=== PATIENT | male | born 1990 | race African-American/Black ===

== ENCOUNTER 2018-04-15 17:14 | Emergency (ER) | payer MEDICAID, SELFPAY ==
[2018-04-15 17:15] VITALS: BP 136/77; PULSE 106; RESP 18; TEMP 36.1; O2SAT 99; BMI 25.7
--- NOTE | 2018-04-15 17:18 | RAD_ITS ---
STUDY: X-RAY - PELVIS AND RIGHT HIP REASON FOR EXAM: Male, 27 years old. Hip and low back pain TECHNIQUE: Radiological exam, hip, unilateral, with pelvis when performed; 2 or 3 views. 3 views obtained. COMPARISON: None. FINDINGS: There is a non-specific bowel gas pattern. Normal visualized soft tissue structures. Normal bilateral iliac wings, sacroiliac joints and visualized sacrum. Normal bilateral superior and inferior pubic rami. Normal pubic symphysis. Normal bilateral ischial tuberosities. Normal visualized femoral head. Normal acetabulum. Normal hip joint. RAD/HIP, UNI W/ Pelvis 2-3 Views IMPRESSION: Normal x-ray examination of the pelvis and hip. Electronically Signed: Khang Hilliard MD at 17:40 EST , Service support ,
--- NOTE | 2018-04-15 20:07 | ED.DCSUM_ITS ---
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 He describes the pain as an ache worse with movement in his right hip region. No abdominal pain. Fever chills no urinary symptoms. Physical Examination: Patient appears well sitting in his chair with no acute distress. He has more pain as he starts to stand up. His pain is in the greater trochanteric region as well as proximal IT band region. He has no pain with logrolling of the hip. He has no SI joint pain. He has full range of motion of his right knee without any laxity or pain. He does have some pain over his quadricep muscles. Test Results: X-ray of the hip and pelvis ordered per protocol prior to me seeing the patient is negative. Emergency Department Course and Treatment: Patient was reassured I will treat him with anti-inflammatories reassurance and education. Discharge stable condition Impression: Right hip pain IT band tendinitis This note was generated with [employer] dictation software. It may contain incorrect words, spelling, and punctuation that were not noted in review of the chart prior to signing ED Disposition - Plan for ED Patient: Disposition: Home or Assisted Living Chief Complaint: Lower Extremity Injury Instructions: ED [facility] Prescriptions: Naproxen [Naprosyn] 500 mg PO BID PRN #20 tab Tizanidine HCl 4 mg PO Q8 PRN #20 tab PRN Reason: Pain Referrals: Care Physician,No Primary [Primary Care Provider] - 3-5 Days
[2018-04-15] MEDS: Triamcinolone Acetonide 40 MG/ML Vial IM (20:18)
[2018-04-15] MEDS: HYDROcodone Bitartrate/Apap 5/325 Tablet PO (20:21)
== END 2018-04-15 20:39 | disposition home or self-care (01) ==
PROVIDERS: Emergency Provider Emergency Medicine
DX: M25.551 Pain in right hip (principal); M76.30 Iliotibial band syndrome, unspecified leg; Z72.0 Tobacco use
CPT/HCPCS: 73502; 96372; 99283

== ENCOUNTER 2018-10-28 16:05 | Inpatient (IN) | payer SELFPAY ==
[2018-10-28] VITALS (7 sets, daily range): BP systolic 118–137; BP diastolic 58–78; PULSE 72–131; RESP 16–24; TEMP 36.5–38.4; O2SAT 95–99; BMI 24.3; BMI 28.8
--- NOTE | 2018-10-28 16:21 | ED.VISSUMM ---
- ER Visit Summary Date of Service: 10/28/18 Chief Complaint: Shortness of breath, cough History of Present Illness: The patient is a 28 M presenting with shortness of breath, cough. He states this started 4 days ago. He has had a harsh cough. He states occasionally it is productive of yellow-green sputum. Occasionally sputum is blood-streaked. He has had a fever. He has not taken any medication for the fever. He has a history of asthma and has been using his inhaler. Denies other complaints. Physical Examination: Vitals are stable. Temperature 100.2. Alert no acute distress. HEENT exam pharyngeal erythema with no exudate uvula midline Neck is supple. Lungs are wheezing bilaterally. Heart is regular and tachycardic. Abdomen is soft nontender nondistended. Extremities are unremarkable. Skin is warm and dry. No focal neurologic deficit. Remainder of exam is unremarkable. Emergency Department Course and Treatment: Patient was given Tylenol, albuterol, Atrovent aerosols. Initially patient's temperature decreased to 98. On reevaluation it was 101. He continues to have wheezing following breathing treatments was given an additional albuterol. CBC normal except platelet 125. On review of his old records he has had low platelets in the past. Chemistries unremarkable. Chest x-ray shows no acute process. CTA chest shows suboptimal technique, making it impossible to exclude pulmonary emboli. Bilateral mild to moderate lower lobe infiltrates. He continues to be tachycardic and has expiratory wheezing on exam. Blood cultures were sent. He was given Levaquin IV. Discussed with the hospitalist for admission Disposition: Admission Impression: Community acquired pneumonia, asthma exacerbation This note was generated with [employer] dictation software. It may contain incorrect words, spelling, and punctuation that were not noted in review of the chart prior to signing ED Disposition - Plan for ED Patient: Instructions: ED Upper Resp Infec No Abx Tx Referrals: Jose Marrero DO [STAFF PHYSICIAN] - Oliverio Hall MD [STAFF PHYSICIAN] -
[2018-10-28] MEDS: Ipratropium/Albuterol Sulfate 3 ML AMPUL.NEB INHALATION (16:27)
[2018-10-28] MEDS: Albuterol 2.5 MG/3 ML VIAL.NEB. INHALATION ×4 (16:35→17:52)
[2018-10-28 16:53] LABS: Absolute Lymphocyte Count 1.07 X10^3/ul (0.83-4.51); Absolute Neutrophil Count 4.7 X10^3/uL (2.0-7.7); Basophil# 0.03 X10^3/uL; Basophil% 0.5 % (0-1); Eosinophil# 0.16 X10^3/uL; Eosinophils% 2.5 % (0-5); Hemoglobin 17.6 g/dl (13.0-16.5); Lymphocyte # 1.07 X10^3/ul (4.0); Lymphocyte % 16.6 % (19-41); Mean Corp Hgb Conc 32.6 g/gl (32-36); Mean Corpuscular Hgb 26.6 pg (27.0-32.0); Mean Corpuscular Volume 81.6 fL (80-94); Mean Platelet Vol. 10.7 fl (6.2-12.0); Monocyte# 0.44 X10^3/uL; Monocyte% 6.8 % (0-10); Neutrophil # 4.73 X10^3/uL (2.7-7.7); Neutrophil % 73.4 % (47-70); POSITIVE COUNT NO; POSITIVE DIFFERENTIAL NO; POSITIVE MORPHOLOGY NO; Platelet Count 125 K/mm3 (150-450); RBC Distribution Width CV 14.2 % (11.6-14.6); Red Blood Count 6.62 M/mm3 (4.6-6.2); White Blood Count 6.4 K/mm3 (4.4-11.0)
[2018-10-28] MEDS: Acetaminophen 500 MG Tablet 1000 MG PO (17:00)
--- NOTE | 2018-10-28 17:00 | RAD_ITS ---
STUDY: X-RAY CHEST REASON FOR EXAM: Male, 28 years old. Fever with cough TECHNIQUE: Frontal and lateral views of the chest. COMPARISON: None. FINDINGS: The lungs are clear and expanded. There is no demonstrated pleural abnormality. Normal size heart. Normal mediastinum and bibiana. Normal visualized pulmonary arteries. Normal visualized aortic arch and descending thoracic aorta. Normal visualized thoracic spine. Normal visualized ribs, clavicles, and shoulders. There is no demonstrated abnormality of the visualized soft tissue structures of the upper abdomen. RAD/Chest PA and Lateral IMPRESSION: Normal x-ray examination of the chest. Electronically Signed: Jimenez Drew MD at 17:14 EDT , Service support ,
[2018-10-28 17:05] LABS: Anion Gap 4 (5-15); BUN 9 mg/dL (7-18); BUN/Creat Ratio 8.2 RATIO (10-20); Calcium,Total 8.9 mg/dL (8.5-10.1); Chloride 105 mmol/L (98-107); EST Glomerular Filtration Rate 84 mL/min (>60); Est Glom Filt Rate - Afr Amer 101 mL/min (>60); Estimated Creatinine Clearance 114.17 ml/min; Glucose 85 mg/dL (74-106); Potassium 3.9 mmol/L (3.5-5.1); Sodium Level 139 mmol/L (136-145)
[2018-10-28] MEDS: MethylPREDNISolone 125 MG/2 ML Vial IV (18:05)
--- NOTE | 2018-10-28 18:54 | ED.DEP ---
ED Disposition - Plan for ED Patient: Instructions: ED Upper Resp Infec No Abx Tx Prescriptions: Benzonatate [Tessalon Perle] 200 mg PO TID PRN PRN #20 capsule PRN Reason: Cough Prednisone [Deltasone] 40 mg PO DAILY #10 tablet Referrals: Oliverio Hall MD [STAFF PHYSICIAN] - Jose Marrero DO [STAFF PHYSICIAN] -
[2018-10-28] MEDS: Ibuprofen 600 MG Tablet PO (19:23)
[2018-10-28] MEDS: 0.9% Normal Saline 1,000 ML 999 ML IV (19:28)
--- NOTE | 2018-10-28 19:53 | CT_ITS ---
STUDY: CTA CHEST REASON FOR EXAM: Male, 28 years old. Sob, fever AND HEMOPTYSIS RADIATION DOSAGE (If Supplied By Facility): CTDIvol = ( 10.25 ) mGy, DLP = ( 478.38 ) mGycm TECHNIQUE: The examination was performed with the intravenous administration of 100ML IV Isovue 370. Post-processing of the angiographic images was performed, with multiplanar reformation and 3D reconstruction. Individualized dose optimization techniques were used for this CT. COMPARISON: Chest x-ray of the same day.. FINDINGS: There is limited enhancement of the main pulmonary artery and right and left pulmonary arteries. There is limited enhancement of the bilateral peripheral pulmonary arteries. Suboptimal timing and contrast bolus. Most of the contrast remains in the left subclavian vein and SVC. There is inadequate opacification of the pulmonary arteries. Although no pulmonary emboli are seen in the pulmonary trunk or main pulmonary arteries, lobar, segmental or subsegmental pulmonary emboli cannot be excluded. Normal thoracic aorta and visualized great vessels. There is no demonstrated aortic dissection. Normal heart and pericardium. Normal mediastinum. Normal hilar regions. Normal visualized trachea and bronchi. The lungs are well expanded. Mild inflammatory infiltrates are suggested in the basal segments of both lower lobes left worse than right. No effusions. Normal chest wall structures. Normal osseous structures. Normal visualized upper abdomen. CT/CTA Chest W/WO Contrast IMPRESSION: Suboptimal technique, making it possible to exclude pulmonary emboli. Bilateral mild to moderate lower lobe infiltrates. Electronically Signed: Jimenez Drew MD at 21:30 EDT , Service support ,
--- NOTE | 2018-10-28 22:07 | EKG12_ITS ---
Test Reason : SOB Blood Pressure : / mmHG Vent. Rate : 092 BPM Atrial Rate : 092 BPM P-R Int : 134 ms QRS Dur : 090 ms QT Int : 350 ms P-R-T Axes : 066 -05 018 degrees QTc Int : 432 ms Normal sinus rhythm Normal ECG Confirmed by HYACINTH MARTINEZ ([id number]), scientific editor MENG GASTON ([id number]) on 11/06/2018 9:30:07 AM Referred By: ROE Confirmed By:HYACINTH MARTINEZ
--- NOTE | 2018-10-28 22:29 | ED.DEP ---
ED Disposition - Plan for ED Patient: Instructions: ED Upper Resp Infec No Abx Tx Referrals: Jose Marrero DO [STAFF PHYSICIAN] - Oliverio Hall MD [STAFF PHYSICIAN] -
--- NOTE | 2018-10-28 22:38 | PCM.HP.STD ---
Problem List (1) Asthma exacerbation Status: Acute (2) Community-acquired pneumonia Status: Acute History of Present Illness Date of Admission: 10/28/18 Chief Complaint: Fever, shortness of breath and cough for 4 days The patient is a 28 year old M with history of asthma since childhood on inhalers came to ED with fever with chills, productive cough with yellow-green sputum and one time bloody streaked hemoptysis, shortness of breath and wheezing for 4 days. Patient said at home his fever was 100.2 Fahrenheit in ER 101.1 Fahrenheit. Patient is tachycardic, heart rate 131 and tachypnea but no hypoxia. [] Past Medical History Allergies No Known Allergies Allergy (Verified 10/28/18 16:08) Home Medications: Ambulatory Orders Medication Instructions Recorded Naproxen [Naprosyn] 500 mg PO BID PRN #20 tab 04/15/18 Tizanidine HCl 4 mg PO Q8 PRN #20 tab 04/15/18 Smoking Status: Former smoker - *Family History Paternal History Items: - - No pertinent history of lung cancer Review of Systems Constitutional: Reports: Chills, Fever, Malaise, Weakness HEENT: Reports: Hard of Hearing. Denies: Head Aches, Sinus Congestion, Sinus Drainage Cardiovascular: Reports: Chest Pain. Denies: Palpitations Respiratory: Reports: Cough, Hemoptysis, Pleuritic Pain - Bilateral pleuritic chest pain on coughing, Shortness of breath upon exertion, Sputum production. Denies: Shortness of breath at rest Gastrointestinal: Denies: Abdominal Pain, Nausea, Vomiting Genitourinary: Denies: Dysuria Musculoskeletal: Denies: Joint Pain, Joint Tenderness Skin: Denies: Rash, Wounds Neurological: Denies: Numbness, Tingling, Focal weakness Psychiatric: Denies: Anxiety, Depression, Homicidal Ideations, Suicidal Ideations Hematologic/ Lymphatic: Denies: Easy Bruising, Easy Bleeding VTE Information - Inpt Only VTE Present on Admission: No VTE Mechan Device Prophylaxis: None VTE Pharm Prophylaxis ordered?: No Reason prophylaxis not ordered:: Procedure Not Indicated - Low risk. Early ambulation encouraged Patient Problems: Active and Suspected Problems Asthma exacerbation (Acute) Community-acquired pneumonia (Acute) - Physical Exam General: Alert, Oriented x3, Cooperative HEENT: Atraumatic, PERRLA, EOMI, Normocephalic Neck: Supple, No JVD, Negative Carotid Bruits Lungs: Diminished - Air entry diminished in all lung bradford., Short of Breath, Tachypneic, Wheezes Cardiovascular: Regular rate, Regular Rhythm, Normal S1, Normal S2, No murmurs Abdomen: Bowel Sounds Present, Soft, Non Tender, Non-Distended Extremities: No edema, Capillary Refill Less than 3 Seconds Skin: No rashes, No breakdown Musculoskeletal: No Tenderness to Palpation of Joints or Extremities Lymphatic: No Cervical, Supraclavicular, or Inguinal Adenopathy Neurological: Cranial nerves II-XII grossly intact, Deep Tendon Reflexes 2+/4 and Symmetrical, Neuro grossly intact, Motor Exam 5/5 strength throughout Psych/Mental Status: Normal Affect, Appropriate Vital Signs Temp Pulse Resp BP Pulse Ox 101.1 F H 128 H 16 119/62 97 10/28/18 19:00 10/28/18 19:00 10/28/18 19:00 10/28/18 19:00 10/28/18 19:00 Oxygen Delivery Method Room Air Weight: 190 lb Body Mass Index (BMI) 24.3 Microbiology Past 72 Hours 10/28/18 19:45 Group A Streptococcus Rapid Screen - Preliminary Mucosa - Throat Laboratory Tests Past 24 Hrs 10/28/18 10/28/18 16:40 16:40 WBC 6.4 RBC 6.62 H Hgb 17.6 H Hct 54.0 MCV 81.6 MCH 26.6 L MCHC 32.6 RDW 14.2 RDW Differential 43.0 Plt Count 125 L MPV 10.7 Immature Gran % (Auto) 0.200 Neut % (Auto) 73.4 H Lymph % (Auto) 16.6 L Granite % (Auto) 6.8 Eos % (Auto) 2.5 Baso % (Auto) 0.5 Absolute Neuts (auto) 4.7 Absolute Lymphs (auto) 1.07 Total Counted Not Reportable Sodium 139 Potassium 3.9 Chloride 105 Carbon Dioxide 30.0 Anion Gap 4 L BUN 9 Creatinine 1.10 Estim Creat Clear Calc 114.17 Est GFR (MDRD) Af Amer 101 Est GFR (MDRD) Non-Af 84 BUN/Creatinine Ratio 8.2 L Glucose 85 Calcium 8.9 Assessment/Plan All Active Problems Asthma exacerbation (Acute) Community-acquired pneumonia (Acute) The patient is a 28 year old M with history of asthma since childhood on inhalers came to ED with fever with chills, productive cough with yellow-green sputum and one time bloody streaked hemoptysis, shortness of breath and wheezing for 4 days. Patient said at home his fever was 100.2 Fahrenheit in ER 101.1 Fahrenheit. Patient is tachycardic, heart rate 131 and tachypnea but no hypoxia. Patient also complained of URI symptoms including sore throat and postnasal drip. In ER, chest x-ray was done which was normal but further CTPA was done for concern of PE which was suboptimal study but no major vessel PE. Bilateral [id number] lower lobe infiltrates. 1. SIRS with Bilateral basal, left more than right community-acquired pneumonia: Patient is being admitted on MedSurg floor. Lactic acid ordered. Started on IV Rocephin and Zithromax after patient got Levaquin 750 mg in ER. Pneumonia work-up ordered including blood cultures x2, sputum culture urinary antigens for Legionella and Streptococcus and respiratory panel. Strep throat is negative. 2. Asthma extubation mostly secondary to pneumonia: On bronchodilator every 4 hourly. IV Solu-Medrol 40 mg q. 6 hourly. Incentive spirometry and chest physiotherapy. 3. Hemoptysis most probably secondary to acute bronchitis: It was very mild with a streak of blood. 4. DVT prophylaxis: Low risk. Early ambulation encouraged Clinical Impression(s) from Imaging Studies Chest X-Ray 10/28/18 17:00 IMPRESSION: Normal x-ray examination of the chest. Chest CTA 10/28/18 19:53 IMPRESSION: Suboptimal technique, making it possible to exclude pulmonary emboli. Bilateral mild to moderate lower lobe infiltrates. Code Visit Inpatient E&M: 63570 Init Hosp L3
[2018-10-29] VITALS (10 sets, daily range): BP systolic 127–141; BP diastolic 71–79; PULSE 75–125; RESP 16–18; TEMP 36.5–36.9; O2SAT 96–99
[2018-10-29] MEDS: Ceftriaxone 1 GM/50 ML BAG IV ×2 (00:32→22:26)
[2018-10-29] MEDS: 0.9% Normal Saline 1,000 ML 100 ML IV ×3 (00:32→16:46)
[2018-10-29] MEDS: 0.9% NaCl Peripheral Flush Adult/Peds IV (00:37)
[2018-10-29] MEDS: Ipratropium/Albuterol Sulfate 3 ML AMPUL.NEB INHALATION ×5 (06:46→22:58)
--- NOTE | 2018-10-29 06:48 | NURSING ---
EVS confirmed bed bug in this pt's room. Pt moved to room 304 after he showered & new gown placed. Belongings goose tied & left in room 303. Sign on door. EVS taped room 303 off.
[2018-10-29] MEDS: guaiFENesin 1,200 MG Tablet 1200 MG PO ×2 (09:09→22:25)
--- NOTE | 2018-10-29 09:38 | PCM.PN.HOSP ---
Patient Problems: Active and Suspected Problems Asthma exacerbation (Acute) Community-acquired pneumonia (Acute) Subjective: Patient seen and examined. He was admitted with a complaint of shortness of breath and fever. He is being managed for acute asthma exacerbation and community acquired pneumonia. Patient still complains of cough and wheezing. He denies any chest pain or palpitations, fever or chills, diarrhea vomiting. Review of systems otherwise negative. Labs and vitals reviewed. Vitals/I&O's: Vital Signs Temp Pulse Resp BP Pulse Ox 97.7 F L 105 H 18 129/76 H 96 10/29/18 05:35 10/29/18 06:46 10/29/18 06:46 10/29/18 05:35 10/29/18 06:47 Oxygen Delivery Method Room Air Weight: 224 lb 3.362 oz Body Mass Index (BMI) 28.8 Intake and Output for Last 24 Hours 10/27/18 10/28/18 10/29/18 23:59 23:59 23:59 Intake Total 756 / 756 Output Total 350 / 350 Balance 406 / 406 General: Alert, Oriented x3, Cooperative, No apparent distress HEENT: Atraumatic, PERRLA, EOMI, Normocephalic Oral: Moist Mucosa Neck: Supple, No JVD, Negative Carotid Bruits Lungs: - - has diminished breath sounds in all lung bradford, with expiratory wheezes and crackles bilaterally Cardiovascular: Regular rate, Regular Rhythm, Normal S1, Normal S2, No murmurs Abdomen: Bowel Sounds Present, Soft, Non Tender, Non-Distended, No Hepato-splenomegaly Extremities: No clubbing, No cyanosis, No edema, Capillary Refill Less than 3 Seconds Skin: No rashes, No breakdown Musculoskeletal: No Tenderness to Palpation of Joints or Extremities Lymphatic: No Cervical, Supraclavicular, or Inguinal Adenopathy Neurological: Cranial nerves II-XII grossly intact, Neuro grossly intact, Motor Exam 5/5 strength throughout Psych/Mental Status: Normal Affect, Appropriate, Alert and oriented to time, place, person, mood and affect Microbiology Past 72 Hours 10/28/18 19:45 Mucosa - Throat Group A Streptococcus Rapid Screen - Preliminary Laboratory Results 10/28/18 16:40: WBC 6.4, RBC 6.62 H, Hgb 17.6 H, Hct 54.0, MCV 81.6, MCH 26.6 L, MCHC 32.6, RDW 14.2, RDW Differential 43.0, Plt Count 125 L, MPV 10.7, Immature Gran % (Auto) 0.200, Neut % (Auto) 73.4 H, Lymph % (Auto) 16.6 L, Marshall % (Auto) 6.8, Eos % (Auto) 2.5, Baso % (Auto) 0.5, Absolute Neuts (auto) 4.7, Absolute Lymphs (auto) 1.07, Total Counted Not Reportable 10/28/18 16:40: Sodium 139, Potassium 3.9, Chloride 105, Carbon Dioxide 30.0, Anion Gap 4 L, BUN 9, Creatinine 1.10, Estim Creat Clear Calc 114.17, Est GFR (MDRD) Af Amer 101, Est GFR (MDRD) Non-Af 84, BUN/Creatinine Ratio 8.2 L, Glucose 85, Calcium 8.9 Diagnostic Data Chest X-Ray 10/28/18 17:00 IMPRESSION: Normal x-ray examination of the chest. Electronically Signed: Jimenez Drew MD at 17:14 EDT , Service support , Chest CTA 10/28/18 19:53 IMPRESSION: Suboptimal technique, making it possible to exclude pulmonary emboli. Bilateral mild to moderate lower lobe infiltrates. Electronically Signed: Jimenez Drew MD at 21:30 EDT , Service support , ADDENDUM: 10/28/18 2239 Current Medications Acetaminophen (Tylenol) 650 mg PO Q4H PRN PRN PRN Reason: FEVER Acetaminophen (Tylenol) 650 mg PO Q4H PRN PRN PRN Reason: Mild-Moderate Pain/Headache Albuterol Sulfate (Ventolin Aerosols) 2.5 mg INHALATION Q2H PRN PRN PRN Reason: SHORTNESS OF BREATH Albuterol/Ipratropium (Duoneb) 3 ml INHALATION Q4H.RT [facility] Last Admin: 10/29/18 06:46 Dose: 3 ml Docusate Sodium (Colace) 200 mg PO BID PRN PRN PRN Reason: Constipation Guaifenesin (Mucinex) 1,200 mg PO BID [facility] Last Admin: 10/29/18 09:09 Dose: 1,200 mg Sodium Chloride () 1,000 mls @ 100 mls/hr IV .Q10H [facility] Last Admin: 10/29/18 08:52 Dose: 100 mls/hr Azithromycin 500 mg/ Dextrose 255 mls @ 250 mls/hr IV Q24@2200 [facility] Stop: 10/30/18 23:02 Last Admin: 10/29/18 01:34 Dose: 250 mls/hr Ceftriaxone Sodium (Rocephin) 1 gm in 50 mls @ 100 mls/hr IV Q24@2200 [facility] Last Admin: 10/29/18 00:32 Dose: 100 mls/hr Methylprednisolone (Solu-Medrol) 40 mg IV Q6 [facility] Last Admin: 10/29/18 05:29 Dose: 40 mg Nutritional Formula (Lactose Free) (Ensure Enlive) 120 ml PO 4X/DAY [facility] Last Admin: 10/29/18 09:09 Dose: 120 ml Prochlorperazine Edisylate (Compazine Iv) 10 mg IV Q6H PRN PRN PRN Reason: Nausea/Vomiting Sodium Chloride () 5 - 15 ml IV UD PRN PRN Reason: SALINE FLUSH Last Admin: 10/29/18 00:37 Dose: 10 ml Tizanidine HCl (Zanaflex) 4 mg PO Q8H PRN PRN PRN Reason: PAIN Zolpidem Tartrate (Ambien (Generic)) 5 mg PO QHS PRN PRN PRN Reason: SLEEP Medical Necessity - Tobacco Use Smoking Status: Current every day smoker Tobacco Use: Vapor Assessment/Plan All Active Problems Asthma exacerbation (Acute) Community-acquired pneumonia (Acute) 1. Community acquired pneumonia still coughing nad wheezing on IV ceftriaxone and azithromycin CXR showed no acute cardiopulmonary process; CT chest showed bilateral lower lobe infiltrates rapid strep screen negative blood cultures and respiratory panel pending continue breathing treatments 2. Acute asthma exacerbation due to community acquired pneumonia still has expiratory wheezing and rhonchi on IV solumedrol 40mg q6hrly on breathing treatments with duonebs incentive spirometry 3. Hemoptysis due to acute asthma: resolved. DVT prophylaxis: low risk. early ambulation encouraged Code Visit Inpatient E&M: 84203 [facility] L3
--- NOTE | 2018-10-29 09:43 | PN_ITS ---
Patient Problems: Active and Suspected Problems Asthma exacerbation (Acute) Community-acquired pneumonia (Acute) Subjective: Patient seen and examined. He was admitted with a complaint of shortness of breath and fever. He is being managed for acute asthma exacerbation and community acquired pneumonia. Patient still complains of cough and wheezing. He denies any chest pain or palpitations, fever or chills, diarrhea vomiting. Review of systems otherwise negative. Labs and vitals reviewed. Vitals/I&O's: Vital Signs Temp Pulse Resp BP Pulse Ox 97.7 F L 105 H 18 129/76 H 96 10/29/18 05:35 10/29/18 06:46 10/29/18 06:46 10/29/18 05:35 10/29/18 06:47 Oxygen Delivery Method Room Air Weight: 224 lb 3.362 oz Body Mass Index (BMI) 28.8 Intake and Output for Last 24 Hours 10/27/18 10/28/18 10/29/18 23:59 23:59 23:59 Intake Total 756 / 756 Output Total 350 / 350 Balance 406 / 406 General: Alert, Oriented x3, Cooperative, No apparent distress HEENT: Atraumatic, PERRLA, EOMI, Normocephalic Oral: Moist Mucosa Neck: Supple, No JVD, Negative Carotid Bruits Lungs: - - has diminished breath sounds in all lung brad[place], with expiratory wheezes and crackles bilaterally Cardiovascular: Regular rate, Regular Rhythm, Normal S1, Normal S2, No murmurs Abdomen: Bowel Sounds Present, Soft, Non Tender, Non-Distended, No Hepato- splenomegaly Extremities: No clubbing, No cyanosis, No edema, Capillary Refill Less than 3 Seconds Skin: No rashes, No breakdown Musculoskeletal: No Tenderness to Palpation of Joints or Extremities Lymphatic: No Cervical, Supraclavicular, or Inguinal Adenopathy Neurological: Cranial nerves II-XII grossly intact, Neuro grossly intact, Motor Exam 5/5 strength throughout Psych/Mental Status: Normal Affect, Appropriate, Alert and oriented to time, place, person, mood and affect Microbiology Past 72 Hours 10/28/18 19:45 Mucosa - Throat Group A Streptococcus Rapid Screen - Preliminary Laboratory Results 10/28/18 16:40: WBC 6.4, RBC 6.62 H, Hgb 17.6 H, Hct 54.0, MCV 81.6, MCH 26.6 L, MCHC 32.6, RDW 14.2, RDW Differential 43.0, Plt Count 125 L, MPV 10.7, Immature Gran % (Auto) 0.200, Neut % (Auto) 73.4 H, Lymph % (Auto) 16.6 L, [place] % (Auto) 6.8, Eos % (Auto) 2.5, Baso % (Auto) 0.5, Absolute Neuts (auto) 4.7, Absolute Lymphs (auto) 1.07, Total Counted Not Reportable 10/28/18 16:40: Sodium 139, Potassium 3.9, Chloride 105, Carbon Dioxide 30.0, Anion Gap 4 L, BUN 9, Creatinine 1.10, Estim Creat Clear Calc 114.17, Est GFR (MDRD) Af Amer 101, Est GFR (MDRD) Non-Af 84, BUN/Creatinine Ratio 8.2 L, Glucose 85, Calcium 8.9 Diagnostic Data Chest X-Ray 10/28/18 17:00 IMPRESSION: Normal x-ray examination of the chest. Electronically Signed: Jimenez Drew MD at 17:14 EDT , Service support , Chest CTA 10/28/18 19:53 IMPRESSION: Suboptimal technique, making it possible to exclude pulmonary emboli. Bilateral mild to moderate lower lobe infiltrates. Electronically Signed: Jimenez Drew MD at 21:30 EDT , Service support , ADDENDUM: 10/28/18 2239 Current Medications Acetaminophen (Tylenol) 650 mg PO Q4H PRN PRN PRN Reason: FEVER Acetaminophen (Tylenol) 650 mg PO Q4H PRN PRN PRN Reason: Mild-Moderate Pain/Headache Albuterol Sulfate (Ventolin Aerosols) 2.5 mg INHALATION Q2H PRN PRN PRN Reason: SHORTNESS OF BREATH Albuterol/Ipratropium (Duoneb) 3 ml INHALATION Q4H.RT [place] Last Admin: 10/29/18 06:46 Dose: 3 ml Docusate Sodium (Colace) 200 mg PO BID PRN PRN PRN Reason: Constipation Guaifenesin (Mucinex) 1,200 mg PO BID [facility] Last Admin: 10/29/18 09:09 Dose: 1,200 mg Sodium Chloride () 1,000 mls @ 100 mls/hr IV .Q10H [facility] Last Admin: 10/29/18 08:52 Dose: 100 mls/hr Azithromycin 500 mg/ Dextrose 255 mls @ 250 mls/hr IV Q24@2200 [facility] Stop: 10/30/18 23:02 Last Admin: 10/29/18 01:34 Dose: 250 mls/hr Ceftriaxone Sodium (Rocephin) 1 gm in 50 mls @ 100 mls/hr IV Q24@2200 [facility] Last Admin: 10/29/18 00:32 Dose: 100 mls/hr Methylprednisolone (Solu-Medrol) 40 mg IV Q6 [facility] Last Admin: 10/29/18 05:29 Dose: 40 mg Nutritional Formula (Lactose Free) (Ensure Enlive) 120 ml PO 4X/DAY [facility] Last Admin: 10/29/18 09:09 Dose: 120 ml Prochlorperazine Edisylate (Compazine Iv) 10 mg IV Q6H PRN PRN PRN Reason: Nausea/Vomiting Sodium Chloride () 5 - 15 ml IV UD PRN PRN Reason: SALINE FLUSH Last Admin: 10/29/18 00:37 Dose: 10 ml Tizanidine HCl (Zanaflex) 4 mg PO Q8H PRN PRN PRN Reason: PAIN Zolpidem Tartrate (Ambien (Generic)) 5 mg PO QHS PRN PRN PRN Reason: SLEEP Medical Necessity - Tobacco Use Smoking Status: Current every day smoker Tobacco Use: Vapor Assessment/Plan All Active Problems Asthma exacerbation (Acute) Community-acquired pneumonia (Acute) 1. Community acquired pneumonia * still coughing nad wheezing * on IV ceftriaxone and azithromycin * CXR showed no acute cardiopulmonary process; CT chest showed bilateral lower lobe infiltrates * rapid strep screen negative * blood cultures and respiratory panel pending * continue breathing treatments * 2. Acute asthma exacerbation due to community acquired pneumonia * still has expiratory wheezing and rhonchi * on IV solumedrol 40mg q6hrly * on breathing treatments with duonebs * incentive spirometry * 3. Hemoptysis due to acute asthma: resolved. DVT prophylaxis: low risk. early ambulation encouraged Code Visit Inpatient E&M: 86458 Subs Hosp L3
--- NOTE | 2018-10-29 10:05 | CASEMGMT ---
Social Work Note Pt is listed as being self-pay. Per PFS, pt completed HCAP application. SW met with pt, introduced self and role at [facility]. Pt is alert and orientated x4. Pt states that he thought he had insurance until he was informed that his insurance was deactivated. Pt states that he works at [employer] and they do offer him insurance and that he will need to sign up for it. 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 SW provided pt with financial resources including [employer], [employer], [employer], RX assistance programs and Medicaid application. Pt denied additional needs or concerns at this time. Nicole Beatty PRODUCT CONTROLLER, DIESEL ENGINE FITTER
--- NOTE | 2018-10-29 14:18 | CASEMGMT ---
Addendum entered by Bibi Haas 10/29/18 14:29: Assessment occurred at 1120 Original Note: RN CM INTAKE COUNSELOR CM to room to meet with patient for initial transition planning/care coordination assessment. AZEEM DELCID introduced self and role at [facility]. Pt voices understanding and consents to assessment at this time. Pt resting in bed in no distress at this time. Pt is A/O at this time and answers all questions appropriately. Care providers, pharmacy, and demographics verified/updated at this time. PCP: No PCP. Given list of local PCP's. has also provided info on [facility]. Specialists: None. Preferred Pharmacy: [facility]. Pt has no insurance. Made aware [facility] check on new prescriptions can be completed prior to discharge. Pt made aware to inform staff if medication cost is not affordable and made aware he may qualify for [facility] Prescription Assist program if he chooses to utilize it. Insurance: Self Pay Prescription Benefit: None. Living Will/HPOA: [facility] does not have LW or HCPOA . Interested in more information but [facility] does not want to talk with at this time to complete paperwork. Provided information on advanced directives and given Social Service rac card with number to call if chooses in the future to utilize [facility] social work for advanced directive completion. Pt voices understanding. LNOK: AuntAisha Living Arrangements: Lives with his auntAisha. States is independent Transportation: Pt does not drive. States his friend Irlanda assists with transportation or he walks. [facility] will check and see if Irlanda can drive him home on discharge. DME: Denies using any DME and denies needs. HHC/SNF: No history of either. No needs identified. Pt wishes to return home and states has no concerns with going home at time of discharge. CM to follow for any discharge planning/needs. Pt voices no further concerns/needs at this time. Advised pt to ask for CM if any further questions/concerns/needs arise. Voices understanding. PLAN: Home. May need [facility] Prescription Assist program. Brittani PATRICIA RN, CM
[2018-10-29] MEDS: tiZANidine HCl 2 MG Tablet 4 MG PO (19:54)
[2018-10-29 20:34] LABS: Color, Urine Yellow (Yellow); Glucose, Dipstick 100 mg/dl (Normal); Ketone-Dipstick 5 mg/dl (Negative); Leukocyte Esterase-Dipstick Negative /ul (Negative); Nitrite-Dipstick Negative (Negative); Occult Blood-Urine Negative /ul (Negative); Protein-Dipstick 30 mg/dl (Negative); Specific Gravity, Urine 1.005 (1.002-1.030); Urine Bilirubin Dipstick Negative (Negative); Urine Clarity Clear (Clear); Urine Urobilinogen Normal (Normal)
--- NOTE | 2018-10-29 20:53 | NURSING ---
Lab called with + Urine...Strep pneumonia told his primary RN Kinjal.
[2018-10-29] MEDS: Acetaminophen 325 MG Tablet 650 MG PO (23:52)
[2018-10-30] VITALS (12 sets, daily range): BP systolic 122–142; BP diastolic 62–81; PULSE 98–128; RESP 16–20; TEMP 36.4–37.2; O2SAT 95–97
[2018-10-30] MEDS: Ipratropium/Albuterol Sulfate 3 ML AMPUL.NEB INHALATION ×6 (03:50→23:35)
[2018-10-30] MEDS: 0.9% Normal Saline 1,000 ML 100 ML IV ×2 (04:05→14:45)
[2018-10-30 05:52] LABS: Absolute Lymphocyte Count 0.51 X10^3/ul (0.83-4.51); Absolute Neutrophil Count 12.8 X10^3/uL (2.0-7.7); Basophil# 0.02 X10^3/uL; Basophil% 0.1 % (0-1); Hematocrit 45.7 % (40-54); Hemoglobin 15.1 g/dl (13.0-16.5); Lymphocyte # 0.51 X10^3/ul (4.0); Lymphocyte % 3.7 % (19-41); Mean Corpuscular Hgb 26.6 pg (27.0-32.0); Mean Corpuscular Volume 80.6 fL (80-94); Mean Platelet Vol. 10.5 fl (6.2-12.0); Monocyte# 0.35 X10^3/uL; Monocyte% 2.6 % (0-10); Neutrophil # 12.82 X10^3/uL (2.7-7.7); Neutrophil % 93.5 % (47-70); Platelet Count 139 K/mm3 (150-450); RBC Distribution Width CV 14.5 % (11.6-14.6); RBC Distribution Width SD 42.9 fl (35.1-43.9); Red Blood Count 5.67 M/mm3 (4.6-6.2); White Blood Count 13.7 K/mm3 (4.4-11.0)
[2018-10-30 05:55] LABS: Differential Indicated SCAN CRITERIA MET; POSITIVE COUNT NO; POSITIVE DIFFERENTIAL YES; POSITIVE MORPHOLOGY NO
[2018-10-30 06:01] LABS: Anion Gap 7 (5-15); BUN 11 mg/dL (7-18); BUN/Creat Ratio 13.2 RATIO (10-20); Chloride 109 mmol/L (98-107); Creatinine, Serum 0.83 mg/dL (0.70-1.30); EST Glomerular Filtration Rate 115 mL/min (>60); Est Glom Filt Rate - Afr Amer 139 mL/min (>60); Estimated Creatinine Clearance 151.31 ml/min; Glucose 133 mg/dL (74-106); Potassium 3.9 mmol/L (3.5-5.1); Sodium Level 140 mmol/L (136-145)
[2018-10-30] MEDS: guaiFENesin 1,200 MG Tablet 1200 MG PO ×2 (07:59→21:12)
[2018-10-30] MEDS: tiZANidine HCl 2 MG Tablet 4 MG PO ×2 (08:00→17:57)
--- NOTE | 2018-10-30 09:45 | PCM.PN.HOSP ---
Patient Problems: Active and Suspected Problems Asthma exacerbation (Acute) Community-acquired pneumonia (Acute) Subjective: Patient seen and examined. Still complains of shortness of breath. He still has a cough which is productive of clear sputum. Denies any fever chills or chest pain. Review of systems otherwise negative. Labs and vitals reviewed. Vitals/I&O's: Vital Signs Temp Pulse Resp BP Pulse Ox 98.4 F 122 H 18 128/68 H 95 10/30/18 08:00 10/30/18 08:00 10/30/18 08:00 10/30/18 08:00 10/30/18 08:00 Oxygen Delivery Method Room Air Weight: 224 lb 3.362 oz Body Mass Index (BMI) 28.8 Intake and Output for Last 24 Hours 10/28/18 10/29/18 10/30/18 23:59 23:59 23:59 Intake Total 3437 / 3437 937 / 937 Output Total 350 / 350 Balance 3087 / 3087 937 / 937 General: Alert, Oriented x3, Cooperative, No apparent distress HEENT: Atraumatic, PERRLA, EOMI, Normocephalic Oral: Moist Mucosa Neck: Supple, No JVD, Negative Carotid Bruits Lungs: - - has diminished breath sounds in all lung br[place], with expiratory wheezes and crackles bilaterally Cardiovascular: Regular rate, Regular Rhythm, Normal S1, Normal S2, No murmurs Abdomen: Bowel Sounds Present, Soft, Non Tender, Non-Distended, No Hepato-splenomegaly Extremities: No clubbing, No cyanosis, No edema, Capillary Refill Less than 3 Seconds Skin: No rashes, No breakdown Musculoskeletal: No Tenderness to Palpation of Joints or Extremities Lymphatic: No Cervical, Supraclavicular, or Inguinal Adenopathy Neurological: Cranial nerves II-XII grossly intact, Neuro grossly intact, Motor Exam 5/5 strength throughout Psych/Mental Status: Normal Affect, Appropriate, Alert and oriented to time, place, person, mood and affect Microbiology Past 72 Hours 10/28/18 19:45 Mucosa - Throat Group A Streptococcus Rapid Screen - Final 10/29/18 14:00 Urine, Clean Catch Streptococcus pneumoniae Antigen (M - Final Streptococcus pneumonia Ag 10/29/18 14:00 Urine, Clean Catch Legionella Antigen - Final 10/29/18 11:01 Sputum, Expectorated/Coughed Gram Stain - Final 10/29/18 01:00 Mucosa - Nasopharyngeal Respiratory Panel (PCR) - Final Parainfluenza 3 Laboratory Results 10/29/18 14:00: Urine Color Yellow, Urine Clarity Clear, Urine pH 7.0, Ur Specific [place] 1.005, Urine Protein 30 H, Urine Glucose (UA) 100 H, Urine Ketones 5 H, Urine Occult Blood Negative, Urine Nitrite Negative, Urine Bilirubin Negative, Urine Urobilinogen Normal, Ur Leukocyte Esterase Negative 10/30/18 05:14: WBC 13.7 H, RBC 5.67, Hgb 15.1, Hct 45.7, MCV 80.6, MCH 26.6 L, MCHC 33.0, RDW 14.5, RDW Differential 42.9, Plt Count 139 L, MPV 10.5, Immature Gran % (Auto) 0.100, Neut % (Auto) 93.5 H, Lymph % (Auto) 3.7 L, [place] % (Auto) 2.6, Eos % (Auto) 0.0, Baso % (Auto) 0.1, Absolute Neuts (auto) 12.8 H, Absolute Lymphs (auto) 0.51 L, Total Counted Not Reportable 10/30/18 05:14: Sodium 140, Potassium 3.9, Chloride 109 H, Carbon Dioxide 24.0, Anion Gap 7, BUN 11, Creatinine 0.83, Estim Creat Clear Calc 151.31, Est GFR (MDRD) Af Amer 139, Est GFR (MDRD) Non-Af 115, BUN/Creatinine Ratio 13.2, Glucose 133 H, Calcium 9.0 Current Medications Acetaminophen (Tylenol) 650 mg PO Q4H PRN PRN PRN Reason: FEVER Acetaminophen (Tylenol) 650 mg PO Q4H PRN PRN PRN Reason: Mild-Moderate Pain/Headache Last Admin: 10/29/18 23:52 Dose: 650 mg Albuterol Sulfate (Ventolin Aerosols) 2.5 mg INHALATION Q2H PRN PRN PRN Reason: SHORTNESS OF BREATH Albuterol/Ipratropium (Duoneb) 3 ml INHALATION Q4H.RT [place] Last Admin: 10/30/18 06:52 Dose: 3 ml Docusate Sodium (Colace) 200 mg PO BID PRN PRN PRN Reason: Constipation Guaifenesin (Mucinex) 1,200 mg PO BID [facility] Last Admin: 10/30/18 07:59 Dose: 1,200 mg Sodium Chloride () 1,000 mls @ 100 mls/hr IV .Q10H [facility] Last Admin: 10/30/18 04:05 Dose: 100 mls/hr Azithromycin 500 mg/ Dextrose 255 mls @ 250 mls/hr IV Q24@2200 [facility] Stop: 10/30/18 23:02 Last Admin: 10/29/18 23:37 Dose: 250 mls/hr Ceftriaxone Sodium (Rocephin) 1 gm in 50 mls @ 100 mls/hr IV Q24@2200 [facility] Last Admin: 10/29/18 22:26 Dose: 100 mls/hr Methylprednisolone (Solu-Medrol) 40 mg IV Q6 [facility] Last Admin: 10/30/18 05:38 Dose: 40 mg Prochlorperazine Edisylate (Compazine Iv) 10 mg IV Q6H PRN PRN PRN Reason: Nausea/Vomiting Sodium Chloride () 5 - 15 ml IV UD PRN PRN Reason: SALINE FLUSH Last Admin: 10/29/18 00:37 Dose: 10 ml Tizanidine HCl (Zanaflex) 4 mg PO Q8H PRN PRN PRN Reason: PAIN Last Admin: 10/30/18 08:00 Dose: 4 mg Zolpidem Tartrate (Ambien (Generic)) 5 mg PO QHS PRN PRN PRN Reason: SLEEP Medical Necessity - Tobacco Use Smoking Status: Current every day smoker Tobacco Use: Vapor Assessment/Plan All Active Problems Asthma exacerbation (Acute) Community-acquired pneumonia (Acute) 1. Community acquired pneumonia still coughing and wheezing on IV ceftriaxone and azithromycin CXR showed no acute cardiopulmonary process; CT chest showed bilateral lower lobe infiltrates rapid strep screen negative Respiratory panel positive for parainfluenza and urine was positive for strep pneumonia antigen. Legionella antigen was negative and Gram stain was also negative. Blood cultures are pending. continue breathing treatments and antibiotics 2. Acute asthma exacerbation due to community acquired pneumonia and parainfluenza infection still has expiratory wheezing and rhonchi on IV solumedrol 40mg q6hrly on breathing treatments with duonebs incentive spirometry 3. Hemoptysis due to acute asthma: resolved. DVT prophylaxis: low risk.SCDs. Code Visit Inpatient E&M: 59008 Subs Hosp L3
--- NOTE | 2018-10-30 09:49 | PN_ITS ---
Patient Problems: Active and Suspected Problems Asthma exacerbation (Acute) Community-acquired pneumonia (Acute) Subjective: Patient seen and examined. Still complains of shortness of breath. He still has a cough which is productive of clear sputum. Denies any fever chills or chest pain. Review of systems otherwise negative. Labs and vitals reviewed. Vitals/I&O's: Vital Signs Temp Pulse Resp BP Pulse Ox 98.4 F 122 H 18 128/68 H 95 10/30/18 08:00 10/30/18 08:00 10/30/18 08:00 10/30/18 08:00 10/30/18 08:00 Oxygen Delivery Method Room Air Weight: 224 lb 3.362 oz Body Mass Index (BMI) 28.8 Intake and Output for Last 24 Hours 10/28/18 10/29/18 10/30/18 23:59 23:59 23:59 Intake Total 3437 / 3437 937 / 937 Output Total 350 / 350 Balance 3087 / 3087 937 / 937 General: Alert, Oriented x3, Cooperative, No apparent distress HEENT: Atraumatic, PERRLA, EOMI, Normocephalic Oral: Moist Mucosa Neck: Supple, No JVD, Negative Carotid Bruits Lungs: - - has diminished breath sounds in all lung brad[place], with expiratory wheezes and crackles bilaterally Cardiovascular: Regular rate, Regular Rhythm, Normal S1, Normal S2, No murmurs Abdomen: Bowel Sounds Present, Soft, Non Tender, Non-Distended, No Hepato- splenomegaly Extremities: No clubbing, No cyanosis, No edema, Capillary Refill Less than 3 Seconds Skin: No rashes, No breakdown Musculoskeletal: No Tenderness to Palpation of Joints or Extremities Lymphatic: No Cervical, Supraclavicular, or Inguinal Adenopathy Neurological: Cranial nerves II-XII grossly intact, Neuro grossly intact, Motor Exam 5/5 strength throughout Psych/Mental Status: Normal Affect, Appropriate, Alert and oriented to time, place, person, mood and affect Microbiology Past 72 Hours 10/28/18 19:45 Mucosa - Throat Group A Streptococcus Rapid Screen - Final 10/29/18 14:00 Urine, Clean Catch Streptococcus pneumoniae Antigen (M - Final Streptococcus pneumonia Ag 10/29/18 14:00 Urine, Clean Catch Legionella Antigen - Final 10/29/18 11:01 Sputum, Expectorated/Coughed Gram Stain - Final 10/29/18 01:00 Mucosa - Nasopharyngeal Respiratory Panel (PCR) - Final Parainfluenza 3 Laboratory Results 10/29/18 14:00: Urine Color Yellow, Urine Clarity Clear, Urine pH 7.0, Ur Specific [place] 1.005, Urine Protein 30 H, Urine Glucose (UA) 100 H, Urine Ketones 5 H, Urine Occult Blood Negative, Urine Nitrite Negative, Urine Bilirubin Negative, Urine Urobilinogen Normal, Ur Leukocyte Esterase Negative 10/30/18 05:14: WBC 13.7 H, RBC 5.67, Hgb 15.1, Hct 45.7, MCV 80.6, MCH 26.6 L, MCHC 33.0, RDW 14.5, RDW Differential 42.9, Plt Count 139 L, MPV 10.5, Immature Gran % (Auto) 0.100, Neut % (Auto) 93.5 H, Lymph % (Auto) 3.7 L, [place] % (Auto) 2.6, Eos % (Auto) 0.0, Baso % (Auto) 0.1, Absolute Neuts (auto) 12.8 H, Absolute Lymphs (auto) 0.51 L, Total Counted Not Reportable 10/30/18 05:14: Sodium 140, Potassium 3.9, Chloride 109 H, Carbon Dioxide 24.0, Anion Gap 7, BUN 11, Creatinine 0.83, Estim Creat Clear Calc 151.31, Est GFR (MDRD) Af Amer 139, Est GFR (MDRD) Non-Af 115, BUN/Creatinine Ratio 13.2, Glucose 133 H, Calcium 9.0 Current Medications Acetaminophen (Tylenol) 650 mg PO Q4H PRN PRN PRN Reason: FEVER Acetaminophen (Tylenol) 650 mg PO Q4H PRN PRN PRN Reason: Mild-Moderate Pain/Headache Last Admin: 10/29/18 23:52 Dose: 650 mg Albuterol Sulfate (Ventolin Aerosols) 2.5 mg INHALATION Q2H PRN PRN PRN Reason: SHORTNESS OF BREATH Albuterol/Ipratropium (Duoneb) 3 ml INHALATION Q4H.RT [facility] Last Admin: 10/30/18 06:52 Dose: 3 ml Docusate Sodium (Colace) 200 mg PO BID PRN PRN PRN Reason: Constipation Guaifenesin (Mucinex) 1,200 mg PO BID [facility] Last Admin: 10/30/18 07:59 Dose: 1,200 mg Sodium Chloride () 1,000 mls @ 100 mls/hr IV .Q10H [facility] Last Admin: 10/30/18 04:05 Dose: 100 mls/hr Azithromycin 500 mg/ Dextrose 255 mls @ 250 mls/hr IV Q24@2200 [facility] Stop: 10/30/18 23:02 Last Admin: 10/29/18 23:37 Dose: 250 mls/hr Ceftriaxone Sodium (Rocephin) 1 gm in 50 mls @ 100 mls/hr IV Q24@2200 [facility] Last Admin: 10/29/18 22:26 Dose: 100 mls/hr Methylprednisolone (Solu-Medrol) 40 mg IV Q6 [facility] Last Admin: 10/30/18 05:38 Dose: 40 mg Prochlorperazine Edisylate (Compazine Iv) 10 mg IV Q6H PRN PRN PRN Reason: Nausea/Vomiting Sodium Chloride () 5 - 15 ml IV UD PRN PRN Reason: SALINE FLUSH Last Admin: 10/29/18 00:37 Dose: 10 ml Tizanidine HCl (Zanaflex) 4 mg PO Q8H PRN PRN PRN Reason: PAIN Last Admin: 10/30/18 08:00 Dose: 4 mg Zolpidem Tartrate (Ambien (Generic)) 5 mg PO QHS PRN PRN PRN Reason: SLEEP Medical Necessity - Tobacco Use Smoking Status: Current every day smoker Tobacco Use: Vapor Assessment/Plan All Active Problems Asthma exacerbation (Acute) Community-acquired pneumonia (Acute) 1. Community acquired pneumonia * still coughing and wheezing * on IV ceftriaxone and azithromycin * CXR showed no acute cardiopulmonary process; CT chest showed bilateral lower lobe infiltrates * rapid strep screen negative * Respiratory panel positive for parainfluenza and urine was positive for strep pneumonia antigen. Legionella antigen was negative and Gram stain was also negative. Blood cultures are pending. * continue breathing treatments and antibiotics * 2. Acute asthma exacerbation due to community acquired pneumonia and parainfluenza infection * still has expiratory wheezing and rhonchi * on IV solumedrol 40mg q6hrly * on breathing treatments with duonebs * incentive spirometry * 3. Hemoptysis due to acute asthma: resolved. DVT prophylaxis: low risk.SCDs. Code Visit Inpatient E&M: 92713 Subs Hosp L3
[2018-10-30] MEDS: BENZOCAINE/MENTHOL 1 LOZENGE 2 LOZENGE MUCOUS MEM (15:12)
[2018-10-30] MEDS: Ceftriaxone 1 GM/50 ML BAG IV (21:11)
[2018-10-31] MEDS: Acetaminophen 325 MG Tablet 650 MG PO (00:01)
[2018-10-31] MEDS: 0.9% Normal Saline 1,000 ML 100 ML IV (02:06)
[2018-10-31 03:42] VITALS: PULSE 110; RESP 18
[2018-10-31] MEDS: Ipratropium/Albuterol Sulfate 3 ML AMPUL.NEB INHALATION ×3 (03:42→11:06)
[2018-10-31 03:55] VITALS: BP 150/76; PULSE 92; RESP 20; TEMP 36.4; O2SAT 97
[2018-10-31 03:58] VITALS: RESP 20
[2018-10-31 07:05] VITALS: PULSE 112; RESP 18; O2SAT 96
[2018-10-31 08:06] VITALS: BP 135/95; PULSE 109; RESP 18; TEMP 36.6; O2SAT 94
[2018-10-31] MEDS: guaiFENesin 1,200 MG Tablet 1200 MG PO (08:09)
[2018-10-31] MEDS: tiZANidine HCl 2 MG Tablet 4 MG PO (08:10)
[2018-10-31] MEDS: BENZOCAINE/MENTHOL 1 LOZENGE 2 LOZENGE MUCOUS MEM (08:10)
--- NOTE | 2018-10-31 09:34 | PCM.CONS.PUL ---
Reason for Consult Date of Consultation: 10/31/18 Reason for Consultation: Asthma Exacerbation History of Present Illness: The patient is a 28-year-old male, with a history as outlined below, who initially presented to the emergency department on October 28 with complaints of shortness of breath and productive cough. The patient has a self-reported history of asthma, initially diagnosed in childhood, which apparently became quiescent as the patient became an adult. The patient reports that prior to this hospitalization, that he did not have any asthma related symptoms. Nevertheless, he does have access to an albuterol rescue inhaler in his home environment. The patient does not currently smoke combustible cigarettes, but does periodically vape. He does report continued chest tightness, wheezing and cough. On presentation to the emergency department, the patient was noted to be febrile, tachycardic and tachypneic. He was, nevertheless, able to maintain appropriate oxygen saturations on room air. Laboratory evaluation revealed no evidence of a leukocytosis. Chemistry profile was unremarkable. Plain film chest x-ray revealed no acute cardiopulmonary process. A CTA chest was then obtained, which was suboptimal for the evaluation of pulmonary emboli. Bilateral lower lobe infiltrates were noted. The patient received aerosol treatments and antibiotics. He was subsequently admitted to the medical surgical floor for ongoing management. The patient's hospital infectious work-up was positive for parainfluenza and Streptococcus pneumoniae. The patient has been maintained on ceftriaxone, bronchodilators and IV steroids. His fever has resolved and he has been able to maintain appropriate oxygen saturations on room air. Past Medical History Allergies No Known Allergies Allergy (Verified 10/28/18 16:08) Home Medications: Ambulatory Orders Medication Instructions Recorded Albuterol Inhaler [Ventolin Hfa 1 - 2 puff INHALATION Q4H PRN PRN 10/28/18 (SP)] Smoking Status: Current every day smoker Tobacco Use: Vapor - *Family History Paternal History Items: - - No pertinent history of lung cancer Review of Systems Constitutional: Reports: Fever Eyes: Denies: Blurred vision, Double vision HEENT: Denies: Head Aches, Sinus Congestion, Sinus Drainage Cardiovascular: Reports: Chest Tightness Respiratory: Reports: Cough, Shortness of Breath, Sputum production, Wheezing Gastrointestinal: Denies: Abdominal Pain, Nausea, Vomiting Genitourinary: Denies: Dysuria Musculoskeletal: Denies: Joint Pain, Joint Tenderness Skin: Denies: Rash, Wounds Neurological: Denies: Numbness, Tingling, Focal weakness Psychiatric: Denies: Anxiety, Depression, Homicidal Ideations, Suicidal Ideations Hematologic/ Lymphatic: Denies: Easy Bruising, Easy Bleeding Patient Problems: Active and Suspected Problems Asthma exacerbation (Acute) Community-acquired pneumonia (Acute) Objective: The patient's most recent lab work, culture data and imaging studies have all been personally reviewed. Urinary Streptococcus antigen was positive. Respiratory viral panel was positive for parainfluenza 3. - Physical Exam General: Alert, Oriented x3, Cooperative, No apparent distress, - - Sitting upright in bed. HEENT: Atraumatic, PERRLA, Normocephalic, - - + Vocal hoarseness Oral: No Gingival or Mucosal Lesions/ Ulcerations Neck: Supple, No Nodes, Trachea Midline Lungs: - - Scant rhonchi with diffuse bilateral expiratory wheezes. Frequent coughing. Cardiovascular: Normal S1, Normal S2, No murmurs, Tachycardic Abdomen: Bowel Sounds Present, Soft, Non Tender, Non-Distended Extremities: No clubbing, No cyanosis, No edema Skin: No breakdown Musculoskeletal: No Tenderness to Palpation of Joints or Extremities, No Muscle Wasting Lymphatic: No Cervical, Supraclavicular, or Inguinal Adenopathy Neurological: Cranial nerves II-XII grossly intact, Neuro grossly intact Psych/Mental Status: Alert and oriented to time, place, person, mood and affect Vital Signs Temp Pulse Resp BP Pulse Ox 97.9 F 109 H 18 135/95 H 94 10/31/18 08:06 10/31/18 08:06 10/31/18 08:06 10/31/18 08:06 10/31/18 08:06 Oxygen Delivery Method Room Air Weight: 224 lb 3.362 oz Body Mass Index (BMI) 28.8 Intake and Output for Last 24 Hours 10/29/18 10/30/18 10/31/18 23:59 23:59 23:59 Intake Total 3437 / 3437 4109 / 4109 877 / 877 Output Total 350 / 350 Balance 3087 / 3087 4109 / 4109 877 / 877 Microbiology Past 72 Hours 10/28/18 22:55 Blood Culture - Preliminary Blood Culture (Wb) - Anticubital Left No growth in 48 hours. 10/28/18 23:00 Blood Culture - Preliminary Blood Culture (Wb) - Anticubital Right No growth in 48 hours. 10/29/18 11:01 Gram Stain - Final Sputum, Expectorated/Coughed Respiratory Culture - Preliminary Appears to be normal respiratory maximo. Further studies to follow. 10/28/18 19:45 Group A Streptococcus Rapid Screen - Final Mucosa - Throat 10/29/18 14:00 Streptococcus pneumoniae Antigen (M - Final Urine, Clean Catch Streptococcus pneumonia Ag 10/29/18 14:00 Legionella Antigen - Final Urine, Clean Catch 10/29/18 01:00 Respiratory Panel (PCR) - Final Mucosa - Nasopharyngeal Parainfluenza 3 Labs (Last 48 Hours) 10/29/18 10/30/18 10/30/18 14:00 05:14 05:14 WBC 13.7 H RBC 5.67 Hgb 15.1 Hct 45.7 MCV 80.6 MCH 26.6 L MCHC 33.0 RDW 14.5 RDW Differential 42.9 Plt Count 139 L MPV 10.5 Immature Gran % (Auto) 0.100 Neut % (Auto) 93.5 H Lymph % (Auto) 3.7 L [place] % (Auto) 2.6 Eos % (Auto) 0.0 Baso % (Auto) 0.1 Absolute Neuts (auto) 12.8 H Absolute Lymphs (auto) 0.51 L Total Counted Not Reportable Sodium 140 Potassium 3.9 Chloride 109 H Carbon Dioxide 24.0 Anion Gap 7 BUN 11 Creatinine 0.83 Estim Creat Clear Calc 151.31 Est GFR (MDRD) Af Amer 139 Est GFR (MDRD) Non-Af 115 BUN/Creatinine Ratio 13.2 Glucose 133 H Calcium 9.0 Urine Color Yellow Urine Clarity Clear Urine pH 7.0 Ur Specific [place] 1.005 Urine Protein 30 H Urine Glucose (UA) 100 H Urine Ketones 5 H Urine Occult Blood Negative Urine Nitrite Negative Urine Bilirubin Negative Urine Urobilinogen Normal Ur Leukocyte Esterase Negative Microbiology 10/28/18 22:55 Blood Culture (Wb) - Anticubital Left Blood Culture - Preliminary No growth in 48 hours. 10/28/18 23:00 Blood Culture (Wb) - Anticubital Right Blood Culture - Preliminary No growth in 48 hours. 10/29/18 11:01 Sputum, Expectorated/Coughed Gram Stain - Final 10/29/18 11:01 Sputum, Expectorated/Coughed Respiratory Culture - Preliminary Appears to be normal respiratory maximo. Further studies to follow. 10/28/18 19:45 Mucosa - Throat Group A Streptococcus Rapid Screen - Final 10/29/18 14:00 Urine, Clean Catch Streptococcus pneumoniae Antigen (M - Final Streptococcus pneumonia Ag 10/29/18 14:00 Urine, Clean Catch Legionella Antigen - Final 10/29/18 01:00 Mucosa - Nasopharyngeal Respiratory Panel (PCR) - Final Parainfluenza 3 Clinical Impression(s) from Imaging Studies Chest X-Ray 10/28/18 17:00 IMPRESSION: Normal x-ray examination of the chest. Electronically Signed: Jimenez Drew MD at 17:14 EDT , Service support , Chest CTA 10/28/18 19:53 IMPRESSION: Suboptimal technique, making it possible to exclude pulmonary emboli. Bilateral mild to moderate lower lobe infiltrates. Electronically Signed: Jimenez Drew MD at 21:30 EDT , Service support , ADDENDUM: 10/28/18 2239 Assessment/Plan All Active Problems Asthma exacerbation (Acute) Community-acquired pneumonia (Acute) RECOMMENDATIONS: 1. Transition to Levaquin by mouth with plans to complete a 7-day treatment course. 2. Okay to transition from IV steroids to prednisone 40 mg daily by mouth. 3. At discharge, recommend the following prednisone taper: 40 mg daily x3 days, 20 mg daily x3 days, 10 mg daily x3 days then stop. 4. Please perform walking oximetry study on room air prior to consideration for discharge from the hospital. 5. Please provide patient with a prescription at discharge for Symbicort 160/4.52 puffs twice daily. The patient will also need a prescription for an albuterol rescue inhaler. 6. Inhaler technique will be reviewed. The patient will be provided with a spacer to be utilized with his Symbicort and as needed rescue inhaler. 7. Please have the patient follow-up in the pulmonary medicine clinic in 1 week with our nurse practitioner. 8. Recommend checking exhaled nitric oxide level at follow-up office visit. 9. Once patient has completed prednisone taper and breathing quality has returned to baseline, recommend obtaining pulmonary function studies. IMPRESSIONS: 1. Asthma with exacerbation secondary to combined pneumococcal pneumonia and parainfluenza respiratory infection Continue current supportive measures with scheduled bronchodilators and IV steroids for now. The patient is on appropriate IV antibiotics. At this time, the patient can be transition from ceftriaxone to Levaquin to complete a 7-day treatment course. He can also be transition to prednisone 40 mg daily by mouth with plans for a taper at discharge, as outlined above. I did explain to the patient that given the identified aforementioned infectious etiologies, that his recovery will take some time. At discharge, recommend that he be placed on high-dose Symbicort 2 puffs twice daily. He will also need a prescription for a rescue inhaler. Inhaler technique will be reviewed. The patient will also be provided with a spacer to be utilized with his maintenance and rescue inhaler regimen. The patient has been instructed to follow-up in the pulmonary medicine clinic with our nurse practitioner in 1 week. We will plan to check an exhaled nitric oxide level at his follow-up office visit. Once his breathing quality is returned back to baseline, pulmonary function studies can be obtained. Prior to his discharge, please perform walking oximetry study to ensure adequacy of oxygenation on room air. This note was generated with [employer] dictation software. It may contain incorrect words, spelling, and punctuation that were not noted in checking the note before signing. Code Visit Inpatient E&M: 58010 Init Hosp L3
--- NOTE | 2018-10-31 10:12 | DCINST_ITS ---
- Discharge Diagnoses Current Active Problems: Current Active and Chronic Problems Asthma exacerbation (Acute) Community-acquired pneumonia (Acute) You will use the following diet at home:: No restrictions Your food should be the consistency of: Regular Your liquids should be the consistency of: Regular/Thin Discharge Activity: Return to Normal Activity Weight Bearing Status: Weight bearing as tolerated Call your doctor if you observe: Fever of 101 or Higher, Shortness of breath Instructions: Understanding Asthma, Using an Inhaler with a Spacer, Caring for Your Inhaler, What Is Pneumonia?, Pneumonia Treatment Allergies/Adverse Reactions: Allergies No Known Allergies Allergy (Verified 10/28/18 16:08) Medications to take at Discharge Albuterol Inhaler [Ventolin Hfa] 1 - 2 puff INHALATION Q4H PRN PRN 10/28/18 Budesonide/Formoterol Fumarate [Symbicort 160-4.5 Mcg Inhaler] 10.2 gm IH BID #1 hfa.aer.ad 10/31/18 Guaifenesin [Mucinex] 1,200 mg PO BID #30 tablet 10/31/18 MethylPREDNISolone DosePak [Medrol DosePak] 4 mg PO UD #1 box 10/31/18 levoFLOXacin tablet [Levaquin tablet] 750 mg PO DAILY #7 tablet 10/31/18 The following prescriptions were given: levoFLOXacin tablet [Levaquin tablet] 750 mg PO DAILY #7 tablet MethylPREDNISolone DosePak [Medrol DosePak] 4 mg PO UD #1 box Budesonide/Formoterol Fumarate [Symbicort 160-4.5 Mcg Inhaler] 10.2 gm IH BID #1 hfa.aer.ad Guaifenesin [Mucinex] 1,200 mg PO BID #30 tablet Primary Care Physician: Jose Marrero DO [STAFF PHYSICIAN] - Oliverio Hall MD [STAFF PHYSICIAN] - Please follow up with your Primary Care Physician in: one week Test Results: Test results from this visit will be discussed in further detail at your follow- up appointment, if applicable. Please Follow Up With: Jose Marrero DO When: one week Proposed Discharge Date: 10/31/18
--- NOTE | 2018-10-31 10:12 | PCM.WORK.EX ---
Work/School Excuse Work/School Excuse for:: Patient Please excuse this person from:: Work From: 10/31/18 through: 11/06/18
--- NOTE | 2018-10-31 10:48 | CASEMGMT ---
Pt is discharged today. SW spoke w/the retail pharmacy here, the cost for his meds is $350. They cannot fill the Mucinex script however as this is an over the counter medication. SW spoke w/pt, he cannot afford the medications. He states he will have insurance through work eventually but is not certain when that will come through. SW explained can use hospital assist once per year, so this is the one time he can use this program for 2019. Pt states understanding. SW explained the Mucinex will not be covered as it is over the counter, pt states will get this on his own. Pt would like the meds brought to the room if possible as he is still working on getting a ride home. RHIANNA called retail pharmacy, let Anuel know we will be using the hospital assist program for him, and will tube the hospital assist form down to him. RHIANNA explained he does not want to pay for the Mucinex here, will get the Mucinex on his own. Anuel states they can deliver the meds to his room. RHIANNA tubed the form to the retail pharmacy. No further needs, pt home today, utilizing hospital assist for medications. JUDY Bergman
[2018-10-31 11:06] VITALS: PULSE 124; RESP 20
--- NOTE | 2018-10-31 12:35 | PCM.DC.SUM ---
Discharge Date and Diagnosis Date of Admission: 10/28/18 Date of Discharge: 10/31/18 - Primary Discharge Diagnosis community acquired pneumonia acute asthma exacerbation due to pneumonia parainfluenza infection sepsis due to community acquired pneumonia Hospital Course and Treatment Imaging Results: Diagnostic Data Chest X-Ray 10/28/18 17:00 IMPRESSION: Normal x-ray examination of the chest. Electronically Signed: Jimenez Drew MD at 17:14 EDT , Service support , Chest CTA 10/28/18 19:53 IMPRESSION: Suboptimal technique, making it possible to exclude pulmonary emboli. Bilateral mild to moderate lower lobe infiltrates. Electronically Signed: Jimenez Drew MD at 21:30 EDT , Service support , ADDENDUM: 10/28/18 2239 pulmonology- Dr Jose Marrero Operations: None Procedures: None Summary of Care Provided: The patient is a 28 year old M with a history of asthma since childhood. He was admitted by the ED on 10/28/2018 with a complaint of fever, chills and a productive cough with yellowish-green sputum as well as one episode of hemoptysis as well as shortness of breath and wheezing for 4 days prior to admission. Temperature at home was 100.2 Fahrenheit and ED it was 101.1 Fahrenheit. At time of admission was also tachycardic and tachypneic which was attributed to acute asthma exacerbation and pneumonia. He was admitted and managed for acute asthma exacerbation and sepsis due to community-acquired pneumonia. He was started on breathing treatments with bronchodilators, IV Solu-Medrol, IV ceftriaxone and azithromycin. Respiratory panel was positive for parainfluenza and urine for strep pneumonia antigen was positive. Blood culture showed no growth and respiratory culture Gram stain were negative. Legionella antigen was also negative. Patient's shortness of breath improved but he still continues to have wheezing and rhonchi in both lungs bilaterally. Pulmonology was therefore consulted also as patient had not been following up with anyone for his asthma. The pulmonology, in light of him having strep pneumonia and parainfluenza infection, the wheezing would persist for a while. It was therefore recommended the patient be discharged home with albuterol inhaler and also started on Symbicort inhaler. He was discharged with a prescription for Medrol Dosepak and p.o. Levaquin 750 mg daily for 5 days. He is follow-up with his primary care doctor and is to follow-up with pulmonology in 1 week. Patient seen and examined prior to discharge. He complained of some pleuritic chest pain due to coughing and wheezing. Review of systems otherwise negative. Labs and vitals reviewed. Home medication reviewed and reconciled o/e: Vital Signs Height 6 ft 2 in Weight: 224 lb 3.362 oz Weight in Pounds 224.2 lbs Pulse Ox 94 Temperature 97.9 F Pulse Rate 124 Respiratory Rate 20 Blood Pressure 135/95 Blood Pressure Position Semi-Fowlers [] General: Alert, Oriented x3, Cooperative, No apparent distress HEENT: Atraumatic, PERRLA, EOMI, Normocephalic Oral: Moist Mucosa Neck: Supple, No JVD, Negative Carotid Bruits Lungs: - - has diminished breath sounds in all lung [place], with expiratory wheezes and crackles bilaterally; saturating well on room air Cardiovascular: Regular rate, Regular Rhythm, Normal S1, Normal S2, No murmurs Abdomen: Bowel Sounds Present, Soft, Non Tender, Non-Distended, No Hepato-splenomegaly Extremities: No clubbing, No cyanosis, No edema, Capillary Refill Less than 3 Seconds Skin: No rashes, No breakdown Musculoskeletal: No Tenderness to Palpation of Joints or Extremities Lymphatic: No Cervical, Supraclavicular, or Inguinal Adenopathy Neurological: Cranial nerves II-XII grossly intact, Neuro grossly intact, Motor Exam 5/5 strength throughout Psych/Mental Status: Normal Affect, Appropriate, Alert and oriented to time, place, person, mood and affect - Physical Exam Vital Signs Temp Pulse Resp BP Pulse Ox 97.9 F 124 H 20 H 135/95 H 94 10/31/18 08:06 10/31/18 11:06 10/31/18 11:06 10/31/18 08:06 10/31/18 08:06 Oxygen Delivery Method Room Air Weight: 224 lb 3.362 oz Body Mass Index (BMI) 28.8 Intake and Output for Last 24 Hours 10/29/18 10/30/18 10/31/18 23:59 23:59 23:59 Intake Total 3437 / 3437 4109 / 4109 1359 / 1359 Output Total 350 / 350 Balance 3087 / 3087 4109 / 4109 1359 / 1359 Microbiology Past 72 Hours 10/29/18 11:01 Gram Stain - Final Sputum, Expectorated/Coughed Respiratory Culture - Final 10/28/18 22:55 Blood Culture - Preliminary Blood Culture (Wb) - Anticubital Left No growth in 48 hours. 10/28/18 23:00 Blood Culture - Preliminary Blood Culture (Wb) - Anticubital Right No growth in 48 hours. 10/28/18 19:45 Group A Streptococcus Rapid Screen - Final Mucosa - Throat 10/29/18 14:00 Streptococcus pneumoniae Antigen (M - Final Urine, Clean Catch Streptococcus pneumonia Ag 10/29/18 14:00 Legionella Antigen - Final Urine, Clean Catch 10/29/18 01:00 Respiratory Panel (PCR) - Final Mucosa - Nasopharyngeal Parainfluenza 3 Discharge Diet: No Restrictions Discharge Activity: Return to Normal Activity Weight Bearing Status: Weight bearing as tolerated Call your doctor if you observe: Fever of 101 or Higher, Shortness of breath Home Medications: Medications to take at Discharge Albuterol Inhaler [Ventolin Hfa] 1 - 2 puff INHALATION Q4H PRN PRN 10/28/18 Budesonide/Formoterol Fumarate [Symbicort 160-4.5 Mcg Inhaler] 10.2 gm IH BID #1 hfa.aer.ad 10/31/18 Guaifenesin [Mucinex] 1,200 mg PO BID #30 tablet 10/31/18 MethylPREDNISolone DosePak [Medrol DosePak] 4 mg PO UD #1 box 10/31/18 levoFLOXacin tablet [Levaquin tablet] 750 mg PO DAILY #7 tablet 10/31/18 Following Prescrptions Were Given to Patient: levoFLOXacin tablet [Levaquin tablet] 750 mg PO DAILY #7 tablet MethylPREDNISolone DosePak [Medrol DosePak] 4 mg PO UD #1 box Budesonide/Formoterol Fumarate [Symbicort 160-4.5 Mcg Inhaler] 10.2 gm IH BID #1 hfa.aer.ad Guaifenesin [Mucinex] 1,200 mg PO BID #30 tablet Primary Care Physician: Jose Marrero DO [STAFF PHYSICIAN] - Oliverio Hall MD [STAFF PHYSICIAN] - Please follow up with your Primary Care Physician in: one week Please Follow Up With: Jose Marrero DO When: one week Patient Instructions: Understanding Asthma, Caring for Your Inhaler, Using an Inhaler with a Spacer, What Is Pneumonia?, Pneumonia Treatment Disposition: Home Minutes spent on discharge:: 45 Patient Condition:: Stable Medical Necessity - Tobacco Use Smoking Status: Current every day smoker Tobacco Use: Vapor Meaningful Use Info Meaningful Use Diagnoses (Choose all that apply): None applicable Code Visit Inpatient E&M: 99538 Disch Hosp
--- NOTE | 2018-10-31 12:44 | DS.PCM_ITS ---
Discharge Date and Diagnosis Date of Admission: 10/28/18 Date of Discharge: 10/31/18 - Primary Discharge Diagnosis community acquired pneumonia acute asthma exacerbation due to pneumonia parainfluenza infection sepsis due to community acquired pneumonia Hospital Course and Treatment Imaging Results: Diagnostic Data Chest X-Ray 10/28/18 17:00 IMPRESSION: Normal x-ray examination of the chest. Electronically Signed: Jimenez Drew MD at 17:14 EDT , Service support , Chest CTA 10/28/18 19:53 IMPRESSION: Suboptimal technique, making it possible to exclude pulmonary emboli. Bilateral mild to moderate lower lobe infiltrates. Electronically Signed: Jimenez Drew MD at 21:30 EDT , Service support , ADDENDUM: 10/28/18 2239 pulmonology- Dr Jose Marrero Operations: None Procedures: None Summary of Care Provided: The patient is a 28 year old M with a history of asthma since childhood. He was admitted by the ED on 10/28/2018 with a complaint of fever, chills and a produ ctive cough with yellowish-green sputum as well as one episode of hemoptysis as well as shortness of breath and wheezing for 4 days prior to admission. Temperature at home was 100.2 Fahrenheit and ED it was 101.1 Fahrenheit. At time of admission was also tachycardic and tachypneic which was attributed to acute asthma exacerbation and pneumonia. He was admitted and managed for acute asthma exacerbation and sepsis due to community-acquired pneumonia. He was started on breathing treatments with bronchodilators, IV Solu-Medrol, IV ceftriaxone and azithromycin. Respiratory panel was positive for parainfluenza and urine for strep pneumonia antigen was positive. Blood culture showed no growth and respiratory culture Gram stain were negative. Legionella antigen was also negative. Patient's shortness of breath improved but he still continues to have wheezing and rhonchi in both lungs bilaterally. Pulmonology was therefore consulted also as patient had not been following up with anyone for his asthma. The pulmonology, in light of him having strep pneumonia and parainfluenza infection, the wheezing would persist for a while. It was therefore recommended the patient be discharged home with albuterol inhaler and also started on Symbicort inhaler. He was discharged with a prescription for Medrol Dosepak and p.o. Levaquin 750 mg daily for 5 days. He is follow-up with his primary care doctor and is to follow-up with pulmonology in 1 week. Patient seen and examined prior to discharge. He complained of some pleuritic chest pain due to coughing and wheezing. Review of systems otherwise negative. Labs and vitals reviewed. Home medication reviewed and reconciled o/e: Vital Signs Height 6 ft 2 in Weight: 224 lb 3.362 oz Weight in Pounds 224.2 lbs Pulse Ox 94 Temperature 97.9 F Pulse Rate 124 Respiratory Rate 20 Blood Pressure 135/95 Blood Pressure Position Semi-Fowlers [] General: Alert, Oriented x3, Cooperative, No apparent distress HEENT: Atraumatic, PERRLA, EOMI, Normocephalic Oral: Moist Mucosa Neck: Supple, No JVD, Negative Carotid Bruits Lungs: - - has diminished breath sounds in all lung bradford, with expiratory wheezes and crackles bilaterally; saturating well on room air Cardiovascular: Regular rate, Regular Rhythm, Normal S1, Normal S2, No murmurs Abdomen: Bowel Sounds Present, Soft, Non Tender, Non-Distended, No Hepato- splenomegaly Extremities: No clubbing, No cyanosis, No edema, Capillary Refill Less than 3 Seconds Skin: No rashes, No breakdown Musculoskeletal: No Tenderness to Palpation of Joints or Extremities Lymphatic: No Cervical, Supraclavicular, or Inguinal Adenopathy Neurological: Cranial nerves II-XII grossly intact, Neuro grossly intact, Motor Exam 5/5 strength throughout Psych/Mental Status: Normal Affect, Appropriate, Alert and oriented to time, place, person, mood and affect - Physical Exam Vital Signs Temp Pulse Resp BP Pulse Ox 97.9 F 124 H 20 H 135/95 H 94 10/31/18 08:06 10/31/18 11:06 10/31/18 11:06 10/31/18 08:06 10/31/18 08:06 Oxygen Delivery Method Room Air Weight: 224 lb 3.362 oz Body Mass Index (BMI) 28.8 Intake and Output for Last 24 Hours 10/29/18 10/30/18 10/31/18 23:59 23:59 23:59 Intake Total 3437 / 3437 4109 / 4109 1359 / 1359 Output Total 350 / 350 Balance 3087 / 3087 4109 / 4109 1359 / 1359 Microbiology Past 72 Hours 10/29/18 11:01 Gram Stain - Final Sputum, Expectorated/Coughed Respiratory Culture - Final 10/28/18 22:55 Blood Culture - Preliminary Blood Culture (Wb) - Anticubital Left No growth in 48 hours. 10/28/18 23:00 Blood Culture - Preliminary Blood Culture (Wb) - Anticubital Right No growth in 48 hours. 10/28/18 19:45 Group A Streptococcus Rapid Screen - Final Mucosa - Throat 10/29/18 14:00 Streptococcus pneumoniae Antigen (M - Final Urine, Clean Catch Streptococcus pneumonia Ag 10/29/18 14:00 Legionella Antigen - Final Urine, Clean Catch 10/29/18 01:00 Respiratory Panel (PCR) - Final Mucosa - Nasopharyngeal Parainfluenza 3 Discharge Diet: No Restrictions Discharge Activity: Return to Normal Activity Weight Bearing Status: Weight bearing as tolerated Call your doctor if you observe: Fever of 101 or Higher, Shortness of breath Home Medications: Medications to take at Discharge Albuterol Inhaler [Ventolin Hfa] 1 - 2 puff INHALATION Q4H PRN PRN 10/28/18 Budesonide/Formoterol Fumarate [Symbicort 160-4.5 Mcg Inhaler] 10.2 gm IH BID #1 hfa.aer.ad 10/31/18 Guaifenesin [Mucinex] 1,200 mg PO BID #30 tablet 10/31/18 MethylPREDNISolone DosePak [Medrol DosePak] 4 mg PO UD #1 box 10/31/18 levoFLOXacin tablet [Levaquin tablet] 750 mg PO DAILY #7 tablet 10/31/18 Following Prescrptions Were Given to Patient: levoFLOXacin tablet [Levaquin tablet] 750 mg PO DAILY #7 tablet MethylPREDNISolone DosePak [Medrol DosePak] 4 mg PO UD #1 box Budesonide/Formoterol Fumarate [Symbicort 160-4.5 Mcg Inhaler] 10.2 gm IH BID #1 hfa.aer.ad Guaifenesin [Mucinex] 1,200 mg PO BID #30 tablet Primary Care Physician: Jose Marrero DO [STAFF PHYSICIAN] - Oliverio Hall MD [STAFF PHYSICIAN] - Please follow up with your Primary Care Physician in: one week Please Follow Up With: Jose Marrero DO When: one week Patient Instructions: Understanding Asthma, Caring for Your Inhaler, Using an Inhaler with a Spacer, What Is Pneumonia?, Pneumonia Treatment Disposition: Home Minutes spent on discharge:: 45 Patient Condition:: Stable Medical Necessity - Tobacco Use Smoking Status: Current every day smoker Tobacco Use: Vapor Meaningful Use Info Meaningful Use Diagnoses (Choose all that apply): None applicable Code Visit Inpatient E&M: 54607 Disch Hosp
== END 2018-10-31 11:48 | disposition home or self-care (01) | DRG 871 ==
LOC: ED 16:52 → MS3 22:41
PROVIDERS: Admitting Provider Internal Medicine; Emergency Provider Emergency Medicine; Visit Provider Student in an Organized Health Care Education/Training Program
DX: A41.9 Sepsis, unspecified organism (principal); J13 Pneumonia due to Streptococcus pneumoniae; J45.901 Unspecified asthma with (acute) exacerbation; R04.2 Hemoptysis; B97.89 Other viral agents as the cause of diseases classified elsewhere; F17.290 Nicotine dependence, other tobacco product, uncomplicated
CPT/HCPCS: 36415; 71046; 71275; 80048; 81002; 85025; 87040; 87070; 87205; 87449; 87633; 87880; 93005; 94640; 94667; 94668; 97802; 99284; J7030; Q9967; A4216

== ENCOUNTER 2020-01-12 16:29 | Emergency (ER) | payer SELFPAY ==
[2018-10-28 23:37] VITALS: BMI 28.8
[2020-01-12 16:31] VITALS: BP 143/83; PULSE 87; RESP 16; TEMP 35.8; O2SAT 97; BMI 30.2
--- NOTE | 2020-01-12 16:42 | CT_ITS ---
STUDY: CT BRAIN WITHOUT CONTRAST REASON FOR EXAM: Male, 29 years old. Migraine headache for 4 days. RADIATION DOSAGE (If Supplied By Facility): CTDIvol = ( 44.99 ) mGy, DLP = ( 897.35 ) mGycm TECHNIQUE: Transaxial CT imaging of the brain was performed without administration of intravenous contrast material. Individualized dose optimization techniques were used for this CT. COMPARISON: No relevant priors. FINDINGS: Normal soft tissue structures. Normal calvarium. Normal size ventricles and extra-axial spaces for the patient''s age. Normal white matter tracts of the cerebral hemispheres. Normal basal ganglia and thalami. Normal brainstem. Normal cerebellum. There is no intracranial hemorrhage. There are no findings of an acute ischemic infarction. Normal visualized paranasal sinuses. CT/Brain/Head without Contrast IMPRESSION: Normal unenhanced CT scan of the brain. Electronically Signed: Jerad Travis DO at 17:27 EDT Tel [phone], Service support ,
--- NOTE | 2020-01-12 16:43 | ED.DCSUM_ITS ---
History of Present Illness Chief Complaint: Headache Informant: Patient Narrative: Patient is a 29-year-old previously healthy male besides asthma who presents to the emergency department for headache. His symptoms have been present over the past 4 days. He does have a history of migraines in the past. His last episode was 2 to 3 months ago. He states that it is normally pretty rare. He has been taking Tylenol for this which has not been giving him much relief. Currently rates the pain as an 8 out of 10 mostly in the frontal aspect. He does have photophobia. He has been nauseous and vomiting occasionally. He denies any head trauma. It was not worse at onset. Did not come on as a thunderclap. He states that this headache is unusual as and his headaches have never lasted this long before. He has never come to the emergency department for headache before. He denies any fever/chills or neck pain. No chest pain or shortness of breath. No abdominal pain. No paresthesias or loss of sensation or weakness in any extremity. He states that the pain does come and go. Otherwise does not know any other aggravating/relieving factors. Past Medical History - Allergies and Home Meds Allergies/Adverse Reactions: Allergies No Known Allergies Allergy (Verified 01/12/20 16:32) Primary Care Physician: Care Physician,No Primary [Primary Care Provider] - Savanna Boucher DO [[facility]] - 2 Days Past Medical History: - - Asthma Smoking Status: Current every day smoker Alcohol: None Drugs: None - Family History Paternal Family History: Reports: - - No pertinent history of lung cancer Review of Systems All systems negative except as indicated General: Denies: Chills, Fever, Sweats Eyes: Denies: Visual changes - bilaterally, Diplopia ENT: Denies: Rhinorrhea, Sore throat Cardiovascular: Denies: Chest pain, Palpitations Respiratory: Denies: Dyspnea, Cough, Dyspnea on exertion Gastrointestinal: Reports: Nausea, Vomiting. Denies: Abdominal pain, Diarrhea, Melena, Hematochezia Genitourinary: Denies: Dysuria, Hematuria, Frequency Musculoskeletal: Denies: Back pain, Extremity Pain Skin: Denies: Rash, Wounds Neurological: Reports: Headache. Denies: Weakness, Parasthesia, Numbness Physical Exam Vital Signs/Narrative: Vital Signs Temp Pulse Resp BP Pulse Ox 01/12/20 16:31 96.4 F L 87 16 143/83 H 97 Inital Vital Signs reviewed: Yes General: Well nourished, Well developed, No Acute Distress Head: Normocephalic, Atraumatic Eyes: Perrl, EOMI ENT: Moist mucous membranes, No rhinorrhea Neck: Supple, Nontender Cardiovascular: Regular rate, Regular rhythm, No murmurs Respiratory: No distress, CTA bilaterally, Chest nontender Abdomen: Soft, Nontender, Nondistended, Normal bowel sounds Back: Nontender, Normal Inspection Extremities: Nontender, No edema Skin: Normal color, No rash Neurological: Alert, Oriented x3, Cranial nerves II-XII grossly intact, Normal Strength, Normal Sensation. Negative for: Left side facial droop, Right side facial droop Psychological: Normal affect, Normal Mood Diagnostic/Tx/Re-eval - Medical Decision Making Patient presents emergency department for headache. Upon arrival to the ED vital signs within normal limits. He does not have any focal deficits and is resting comfortably on the bed at my time of examination. He has never had any imaging of his head before in the past. Usual for his headache so we will do a CT scan of his head. Will treat symptomatically with migraine cocktail including Toradol, Reglan, Benadryl. CT scan of the patient's head did not reveal any acute intracranial abnormality. He understands that this is not the best test post 6 hours after onset of headache. He is feeling much better at this time and will hold off on doing lumbar puncture. Patient resting comfortably upon reexamination. Does feel comfortable going home at this time. Will discharge home in stable condition. He does not have a PCP so he was given a doctor from the no doc list for follow- up. Warning signs and symptoms for which to return to the emergency department including any focal deficits, worsening headache are reviewed. He understands and is agreeable with this plan. ED Disposition - Plan for ED Patient: Disposition: Home or Assisted Living Diagnosis: Headache Instructions: ED Headache Unspecified Referrals: Care Physician,No Primary [Primary Care Provider] - Savanna Boucher DO [[facility]] - 2 Days
[2020-01-12] MEDS: DiphenhydrAMINE 50 MG/ML Syringe 25 MG IV (16:57)
[2020-01-12] MEDS: Ketorolac 30 MG/ML Syringe IV (16:58)
[2020-01-12] MEDS: Metoclopramide 10 MG/2 ML Vial 5 MG IV (16:59)
[2020-01-12 18:08] VITALS: BP 130/88; PULSE 75; RESP 16; O2SAT 98
== END 2020-01-12 18:08 | disposition home or self-care (01) ==
PROVIDERS: Emergency Provider Emergency Medicine
DX: R51 Headache (principal); J45.909 Unspecified asthma, uncomplicated; F17.200 Nicotine dependence, unspecified, uncomplicated
CPT/HCPCS: 70450; 96374; 96375; 99282; A4216

== ENCOUNTER 2020-07-15 13:34 | Emergency (ER) | payer MEDICAID, SELFPAY ==
[2020-04-08 16:54] VITALS: BMI 33.0
[2020-07-15 13:35] VITALS: BP 147/101; PULSE 100; RESP 18; TEMP 36.8; O2SAT 98; BMI 30.8
[2020-07-15 13:59] VITALS: BP 147/93; PULSE 94; RESP 14; O2SAT 97
--- NOTE | 2020-07-15 14:06 | EKG12_ITS ---
Test Reason : Blood Pressure : / mmHG Vent. Rate : 079 BPM Atrial Rate : 079 BPM P-R Int : 138 ms QRS Dur : 088 ms QT Int : 338 ms P-R-T Axes : 048 -21 007 degrees QTc Int : 387 ms Normal sinus rhythm with sinus arrhythmia Minimal voltage criteria for LVH, may be normal variant Borderline ECG Confirmed by DOMO PERERA, KELI ([id number]), assistant editor MENG GASTON ([id number]) on 07/18/2020 2:19:11 PM Referred By: BARAK Confirmed By:KELI OLIVEROS MD
--- NOTE | 2020-07-15 14:07 | ED.VIS.GEN ---
History of Present Illness Chief Complaint: Cough Informant: Patient Onset: Weeks - 2 weeks Context: Gradual Onset Timing: Waxes and wanes Current Severity: Mild Maximum Severity: Moderate Narrative: Patient presents with cough has been ongoing for the past 2 weeks. He states at times he will get somewhat short of breath and get central chest pain with it as well. He does report hemoptysis. He states at times his sputum is white, at other times pink, and other times bright red. He denies fever or chills. He does complain of migraine. - Past Medical History (1) Asthma Status: Chronic Past Medical History - Allergies and Home Meds Allergies/Adverse Reactions: Allergies No Known Allergies Allergy (Verified 07/15/20 13:38) Primary Care Physician: Care Physician,No Primary [Primary Care Provider] - Prior records reviewed: Yes Lives: Spouse/ Significant Other Smoking Status: Current some day smoker - Family History Paternal Family History: Reports: - - No pertinent history of lung cancer Review of Systems General: Denies: Chills, Fever Eyes: Denies: Visual changes - bilaterally ENT: Denies: Bilateral ear pain Cardiovascular: Reports: Chest pain Respiratory: Reports: Dyspnea, Cough, Sputum Gastrointestinal: Reports: Vomiting. Denies: Abdominal pain Genitourinary: Denies: Dysuria Musculoskeletal: Denies: Swelling, Extremity Pain Skin: Denies: Rash Neurological: Reports: Headache Hematologic: Denies: Easy bruising, Easy bleeding Allergy: Denies: Uticaria Physical Exam Vital Signs/Narrative: Vital Signs Temp Pulse Resp BP Pulse Ox 07/15/20 13:59 94 14 147/93 H 97 07/15/20 13:35 98.2 F 100 18 147/101 H 98 Inital Vital Signs reviewed: Yes General: Well nourished, Well developed Head: Normocephalic ENT: Moist mucous membranes Neck: Supple Cardiovascular: Regular rate, Regular rhythm Respiratory: No distress, CTA bilaterally Abdomen: Soft, Nontender, Normal bowel sounds Back: Nontender Extremities: Nontender Skin: Normal color, No rash Neurological: Alert, Oriented x3, Normal Strength, Normal Sensation Psychological: Normal affect Diagnostic/Tx/Re-eval Chest X-Ray - ED: 1 View, Read by ED Physician, Normal, Heart, Lungs, Mediastinum Impressions Chest X-Ray 07/15/20 14:35 IMPRESSION: No acute abnormality is seen. Electronically Signed: Ismael Mixon MD at 14:51 EST , Service support , 07/15/20 14:35 Chest 1 View (Portable) [RAD] Stat Laboratory Results 07/15/20 07/15/20 07/15/20 14:30 14:30 14:30 WBC 4.1 L RBC 5.90 Hgb 15.9 Hct 49.7 MCV 84.2 MCH 26.9 L MCHC 32.0 RDW Std Deviation 42.0 RDW Coeff of Edson 13.6 Plt Count 162 MPV 11.0 Immature Gran % (Auto) 0.000 Neut % (Auto) 53.1 Lymph % (Auto) 33.1 Emmet % (Auto) 7.4 Eos % (Auto) 5.9 H Baso % (Auto) 0.5 Absolute Neuts (auto) 2.2 Absolute Lymphs (auto) 1.34 Nucleated RBC % 0 D-Dimer Quant (PE/DVT) 0.31 Sodium 139 Potassium 3.7 Chloride 107 Carbon Dioxide 26.0 Anion Gap 6 BUN 15 Creatinine 0.87 Estim Creat Clear Calc 143.04 Est GFR (MDRD) Af Amer 131 Est GFR (MDRD) Non-Af 108 BUN/Creatinine Ratio 17.2 Glucose 84 Calcium 9.1 Troponin I < 0.015 - EKG Initial EKG Interpretation: Sinus Rhythm - Sinus at 79 with no acute ischemia. Sinus arrhythmia noted. - Medical Decision Making Patient was given Tylenol, Reglan, and Benadryl for his migraine. He was given Tessalon Perles to help with cough. Portable chest x-ray per my interpretation reveals no infiltrate or suspicious mass. Blood work is unremarkable including negative D-dimer and troponin. Test results are discussed with the patient. I believe he likely has a viral URI causing a cough with some irritation of the airways causing mild bleeding. I advised him that he at this point was trying to control the cough to suppress the irritation. He will be given a prescription for Tessalon Perles. He was given return instructions. Covid swab was obtained and results will be texted to him. He is comfortable with this plan. ED Disposition - Plan for ED Patient: Disposition: Home or Assisted Living Diagnosis: Viral URI, Hemoptysis Instructions: ED URI, Viral, No Abx (Adult), ED Hemoptysis Prescriptions: Benzonatate [Tessalon Perle] 200 mg PO TID PRN PRN #20 cap PRN Reason: Cough Transmission Status: Pending to [id number] Referrals: Jazzy Stafford MD [STAFF PHYSICIAN] - 1-2 Weeks
[2020-07-15] MEDS: Benzonatate 100 MG Capsule 200 MG PO (14:27)
[2020-07-15] MEDS: Metoclopramide 10 MG/2 ML Vial IV (14:27)
[2020-07-15] MEDS: Acetaminophen 500 MG Tablet 1000 MG PO (14:27)
[2020-07-15] MEDS: DiphenhydrAMINE 50 MG/ML Syringe 25 MG IV (14:27)
[2020-07-15 14:34] VITALS: BP 129/102; PULSE 79; RESP 16; O2SAT 98
--- NOTE | 2020-07-15 14:35 | RAD_ITS ---
STUDY: X-RAY CHEST REASON FOR EXAM: Male, 29 years old. Coughing up blood x 2 weeks, Hx asthma TECHNIQUE: Single AP portable view of the chest. COMPARISON: Comparison is made with prior study dated 10/28/2018. FINDINGS: EKG electrodes are seen. The lungs are clear and expanded. There is no demonstrated pleural abnormality. Normal size heart. Normal mediastinum and bibiana. Normal visualized pulmonary arteries. Normal visualized aortic arch and descending thoracic aorta. Normal visualized thoracic spine. There is evidence of intramedullary cindy fixation of the left humerus. There is no demonstrated abnormality of the visualized soft tissue structures of the upper abdomen. RAD/Chest 1 View (Portable) IMPRESSION: No acute abnormality is seen. Electronically Signed: Ismael Mixon MD at 14:51 EST , Service support ,
[2020-07-15 14:38] LABS: Absolute Lymphocyte Count 1.34 X10^3/uL (0.83-4.51); Absolute Neutrophil Count 2.2 X10^3/uL (2.0-7.7); Basophil# 0.02 X10^3/uL; Basophil% 0.5 % (0-1); Eosinophil# 0.24 X10^3/uL; Eosinophils% 5.9 % (0-5); Hematocrit 49.7 % (40-54); Hemoglobin 15.9 g/dL (13.0-16.5); Lymphocyte # 1.34 X10^3/ul (4.0); Lymphocyte % 33.1 % (19-41); Mean Corpuscular Hgb 26.9 pg (27.0-32.0); Mean Corpuscular Volume 84.2 fL (80-94); Monocyte% 7.4 % (0-10); NRBC Flagged by Analyzer 0 % (0-5); Neutrophil # 2.15 X10^3/uL (2.7-7.7); Neutrophil % 53.1 % (47-70); POSITIVE MORPHOLOGY YES; Platelet Count 162 K/mm3 (150-450); RBC Distribution Width CV 13.6 % (11.6-14.6); White Blood Count 4.1 K/mm3 (4.4-11.0)
[2020-07-15 14:42] LABS: Differential Indicated SCAN CRITERIA MET
[2020-07-15 15:04] LABS: Anion Gap 6 (5-15); BUN 15 mg/dL (7-18); BUN/Creat Ratio 17.2 RATIO (10-20); Calcium,Total 9.1 mg/dL (8.5-10.1); Chloride 107 mmol/L (98-107); Creatinine, Serum 0.87 mg/dL (0.70-1.30); EST Glomerular Filtration Rate 108 mL/min (>60); Est Glom Filt Rate - Afr Amer 131 mL/min (>60); Estimated Creatinine Clearance 143.04 ml/min; Glucose 84 mg/dL (74-106); Potassium 3.7 mmol/L (3.5-5.1); Sodium Level 139 mmol/L (136-145)
[2020-07-15 15:06] LABS: D-Dimer Quantitative (DVT/PE) 0.31 FEU/ug/m (0.27-0.49)
[2020-07-15 15:20] LABS: Anisocytosis RARE; Platelet Estimate ADEQUATE (ADEQ); Red Cell Morphology NORM C+C NORMAL (NORM C&C)
[2020-07-15 15:35] VITALS: BP 149/90; PULSE 77; RESP 16; TEMP 36.6
== END 2020-07-15 15:36 | disposition home or self-care (01) ==
PROVIDERS: Emergency Provider Emergency Medicine
DX: J06.9 Acute upper respiratory infection, unspecified (principal); R04.2 Hemoptysis; Z20.822 Contact with and (suspected) exposure to COVID-19; J45.909 Unspecified asthma, uncomplicated; G43.909 Migraine, unspecified, not intractable, without status migrainosus; R07.9 Chest pain, unspecified; R11.10 Vomiting, unspecified; F17.200 Nicotine dependence, unspecified, uncomplicated
CPT/HCPCS: 71045; 80048; 84484; 85025; 85379; 87635; 93005; 96361; 96374; 96375; 99285; J7040; A4216; U0002

== ENCOUNTER 2020-11-04 13:53 | Emergency (ER) | payer MEDICAID, SELFPAY ==
[2020-11-04 13:54] VITALS: BP 153/100; PULSE 72; RESP 16; TEMP 36.6; O2SAT 96; BMI 32.1
--- NOTE | 2020-11-04 14:19 | EDS_ITS ---
HPI History of Present Illness Chief Complaint: Flank Pain Narrative Narrative: 30-year-old male presenting with left flank pain. He describes it is in the left lower quadrant and left flank. It started abruptly this morning. He denies dysuria or hematuria. He does have associated nausea. The pain is been constant since he woke up at about 6 AM. Denies history of kidney stones or diverticulitis. He does admit to some constipation. Denies black or bloody stools, diarrhea. He states his only past medical history is asthma. He does not have any respiratory complaints. [facility] Medical History Asthma Chronic neck and back pain History of humerus fracture Migraines Shoulder pain Home Medications albuterol sulfate 1 - 2 puff INHALATION Q4H PRN PRN 10/28/18 [History Last Taken Unknown] ondansetron 4 mg PO Q8H PRN PRN #12 tab 11/04/20 [Rx Last Taken Unknown] oxycodone-acetaminophen [Endocet] 1 tab PO Q6H PRN 3 Days #12 tab 11/04/20 [Rx Last Taken Unknown] tamsulosin [Flomax] 0.4 mg PO DAILY #7 cap 11/04/20 [Rx Last Taken Unknown] Allergy/AdvReac Type Severity Reaction Status Date / Time No Known Allergies Allergy Verified 11/04/20 13:55 Social History Smoking Status: Light Smoker (<10/day) alcohol intake: never ROS ROS ED Constitutional Constitutional ED: Denies chills, fever(s) or sweats Eyes Eyes: Denies blurry vision or change in vision ENT ENT ED: Denies ear pain or sore throat Cardiovascular Cardiovascular: Denies chest pain, palpitations or racing heartbeat Respiratory/Chest Respiratory/Chest: Denies cough, dyspnea or sputum Gastrointestinal Gastrointestinal: Reports abdominal pain, constipation and nausea; Denies diarrhea or vomiting Genitourinary Genitourinary ED: Denies dysuria, hematuria or urinary frequency Musculoskeletal Musculoskeletal: Reports other Details: Left flank pain ; Denies arthralgias, myalgias or neck pain Integumentary Denies abscess, Abrasions or rash Neurologic Neurologic: Denies headache(s), paresthesias or weakness Psychiatric Psychiatric: Denies anxiety, depression, suicidal ideation or suicidal thoughts Endocrine Endocrinology: Denies polydipsia or polyuria EXAM Physical Exam Const Vital Signs: 11/04/20 13:54 Temperature 97.8 F Temperature Source Temporal Pulse Rate 72 Respiratory Rate 16 Blood Pressure 153/100 H Blood Pressure Mean 117 Pulse Ox 96 Oxygen Delivery Method Room Air Positive well nourished and no apparent distress General Appearance ED: Negative for pallor HEENT Reports normocephalic, head/scalp atraumatic and moist mucous membranes Eyes PERRL and EOMs intact bilaterally Neck no lymphadenopathy and supple Resp normal respiratory effort and clear to auscultation bilaterally Auscultation: Negative for rales, rhonchi or wheezes Cardio regular rate and regular rhythm GI soft to palpation, non-distended and no masses GI Narrative: Tenderness to palpation left lower quadrant. Abdomen is nonperitoneal. Auscultation: normoactive bowel sounds Palpation: soft Narrative: Deferred CVA tenderness on the left. Back/Spine no thoracic nor lumbar tenderness General Back: CVA tenderness Cervical Spine: Negative for cervical spine tenderness Extremity normal to inspection General Extremety ED: Yes edema and tenderness General Extremity: edema Neuro oriented x3 and CN's II-XII intact bilaterally Sensorium / Orientation: alert Motor Exam: strength 5/5 throughout Psych mental status grossly normal Attitude: No agitated Skin no rashes or lesions noted and no wounds General Skin Exam: Negative for jaundice or pallor MDM MDM MDM Narrative Medical decision making narrative: Patient presenting with left flank pain. Urinalysis was obtained and shows hematuria. Patient had lab work drawn which is unremarkable. Renal function is normal. Patient had CT of the abdomen pelvis without contrast which shows a 2 mm distal ureteral stone. Patient's pain was controlled with morphine and Zofran as well as Toradol. He will be given oxycodone prior to discharge. For home he is given Percocet, Zofran, Flomax. He is given follow-up with urology. Patient stable discharge at this time. Impression: 1. Left 2 mm ureteral stone 2. Hematuria Lab Data Labs: Laboratory Results - last 24 hr 11/04/20 11/04/20 11/04/20 14:45 14:45 14:45 WBC 5.5 RBC 5.66 Hgb 15.4 Hct 48.3 MCV 85.3 MCH 27.2 MCHC 31.9 L RDW Std Deviation 42.8 RDW Coeff of Edson 13.6 Plt Count 171 MPV 10.5 Immature Gran % (Auto) 0.200 Neut % (Auto) 57.9 Lymph % (Auto) 29.3 Rhea % (Auto) 8.6 Eos % (Auto) 3.8 Baso % (Auto) 0.2 Absolute Neuts (auto) 3.2 Absolute Lymphs (auto) 1.61 Nucleated RBC % 0 Sodium 142 Potassium 3.5 Chloride 110 H Carbon Dioxide 27.0 Anion Gap 5 BUN 11 Creatinine 1.01 Estim Creat Clear Calc 122.08 Est GFR (MDRD) Af Amer 110 Est GFR (MDRD) Non-Af 91 BUN/Creatinine Ratio 10.9 Glucose 92 Calcium 8.7 Urine Color Yellow Urine Clarity Clear Urine pH 7.0 Ur Specific Cope 1.010 Urine Protein Negative Urine Glucose (UA) Normal Urine Ketones Negative Urine Occult Blood 10 H Urine Nitrite Negative Urine Bilirubin Negative Urine Urobilinogen Normal Ur Leukocyte Esterase Negative Urine RBC 0 SEEN Urine WBC 0-5 SEEN Ur Squamous Epith Cells 0 SEEN Urine Bacteria 0 SEEN Urine Mucus 0 SEEN Radiography Diagnostic Testing: Radiology Impression Abdomen/Pelvis CT 11/04/20 15:18 IMPRESSION: 2 mm obstructing stone at the left ureterovesical junction with mild ureteral dilatation and hydronephrosis. Electronically Signed: Anil Grace MD at 15:50 EDT Tel , Service support , Discharge Plan Triage Chief Complaint: Flank Pain ED Provider: Bacilio Tinajero Dx/Rx/DC Orders Instructions: ED Kidney Stone w/ Colic Prescriptions: New oxycodone-acetaminophen [Endocet] 5-325 mg tablet 1 tab PO Q6H PRN (Reason: pain) 3 Days Qty: 12 RF: 0 ondansetron 4 mg tablet,disintegrating 4 mg PO Q8H PRN PRN (Reason: Nausea) Qty: 12 RF: 0 tamsulosin [Flomax] 0.4 mg capsule 0.4 mg PO DAILY Qty: 7 RF: 0 No Action albuterol sulfate 1 INHALER inhaler 1 - 2 puff INHALATION Q4H PRN PRN (Reason: BREATHING) RF: 0 Primary Care Provider: Care Physician,No Primary Referrals: Dell Vicente MD [STAFF PHYSICIAN] - As soon as possible Care Physician,No Primary [Primary Care Provider] - Disposition Disposition: Home, self care
[2020-11-04] MEDS: Ondansetron 4 MG/2 ML Vial IV (14:37)
[2020-11-04] MEDS: Morphine 4 MG/ML Syringe IV (14:38)
[2020-11-04] MEDS: Ketorolac 15 MG/ML Vial IV (14:38)
[2020-11-04 14:49] LABS: Bacteria 0 SEEN /hpf (None Seen); Mucous, Urine 0 SEEN /hpf (<or=2+); Red Blood Cells-Urine 0 SEEN /hpf (0-5); Squamous Epithelial Cells - UA 0 SEEN /hpf (0-5)
[2020-11-04 14:50] LABS: Absolute Lymphocyte Count 1.61 X10^3/uL (0.83-4.51); Absolute Neutrophil Count 3.2 X10^3/uL (2.0-7.7); Basophil# 0.01 X10^3/uL; Basophil% 0.2 % (0-1); Color, Urine Yellow (Yellow); Eosinophil# 0.21 X10^3/uL; Eosinophils% 3.8 % (0-5); Glucose, Dipstick Normal (Normal); Hematocrit 48.3 % (40-54); Hemoglobin 15.4 g/dL (13.0-16.5); Ketone-Dipstick Negative (Negative); Leukocyte Esterase-Dipstick Negative /ul (Negative); Lymphocyte # 1.61 X10^3/ul (0.83-4.51); Lymphocyte % 29.3 % (19-41); Mean Corp Hgb Conc 31.9 g/dL (32-36); Mean Corpuscular Hgb 27.2 pg (27.0-32.0); Mean Corpuscular Volume 85.3 fL (80-94); Mean Platelet Vol. 10.5 fl (6.2-12.0); Monocyte# 0.47 X10^3/uL; Monocyte% 8.6 % (0-10); NRBC Flagged by Analyzer 0 % (0-5); Neutrophil # 3.18 X10^3/uL (2.7-7.7); Neutrophil % 57.9 % (47-70); Nitrite-Dipstick Negative (Negative); Occult Blood-Urine 10 /ul (Negative); Platelet Count 171 K/mm3 (150-450); Protein-Dipstick Negative (Negative); RBC Distribution Width CV 13.6 % (11.6-14.6); RBC Distribution Width SD 42.8 fl (35.1-43.9); Red Blood Count 5.66 M/mm3 (4.6-6.2); Urine Bilirubin Dipstick Negative (Negative); Urine Clarity Clear (Clear); Urine Urobilinogen Normal (Normal); White Blood Count 5.5 K/mm3 (4.4-11.0)
[2020-11-04 15:02] LABS: Anion Gap 5 (5-15); BUN 11 mg/dL (7-18); BUN/Creat Ratio 10.9 RATIO (10-20); Calcium,Total 8.7 mg/dL (8.5-10.1); Chloride 110 mmol/L (98-107); Creatinine, Serum 1.01 mg/dL (0.70-1.30); EST Glomerular Filtration Rate 91 mL/min (>60); Est Glom Filt Rate - Afr Amer 110 mL/min (>60); Estimated Creatinine Clearance 122.08 ml/min; Glucose 92 mg/dL (74-106); Potassium 3.5 mmol/L (3.5-5.1); Sodium Level 142 mmol/L (136-145)
[2020-11-04 15:06] LABS: White Blood Cells 0-5 SEEN /hpf (0-5)
--- NOTE | 2020-11-04 15:18 | CT_ITS ---
STUDY: CT ABDOMEN AND PELVIS WITHOUT CONTRAST REASON FOR EXAM: Male, 30 years old. left flank pain RADIATION DOSAGE (If Supplied By Facility): CTDIvol = ( 22.22 ) mGy, DLP = ( 1193.32 ) mGycm TECHNIQUE: Transaxial images were obtained from the dome of the diaphragm to the symphysis pubis without oral contrast, and without intravenous contrast. Sagittal and coronal images were reconstructed. Individualized dose optimization techniques were used for this CT. COMPARISON: None. FINDINGS: The visualized lung bases are unremarkable. The visualized portions of the heart are within normal limits. Normal liver. Normal gallbladder and extrahepatic biliary system. Normal spleen. Normal pancreas. Normal bilateral adrenal glands. Normal right kidney. 2 mm obstructing stone at the left ureterovesical junction with mild ureteral dilatation, hydronephrosis, and perinephric edema. Normal visualized stomach. Normal small intestine. Normal colon. The appendix is visualized and appears normal. Normal abdominal aorta. Normal inferior vena cava. Normal retroperitoneum. Normal urinary bladder. Normal abdominal wall. Normal osseous structures. CT/Abdomen/Pelvis without Cont IMPRESSION: 2 mm obstructing stone at the left ureterovesical junction with mild ureteral dilatation and hydronephrosis. Electronically Signed: Anil Grace MD at 15:50 EDT Tel , Service support ,
[2020-11-04] MEDS: oxyCODONE 5 MG Tablet PO (16:26)
== END 2020-11-04 16:31 | disposition home or self-care (01) ==
PROVIDERS: Emergency Provider Student in an Organized Health Care Education/Training Program
DX: N20.1 Calculus of ureter (principal); R31.9 Hematuria, unspecified; J45.909 Unspecified asthma, uncomplicated
CPT/HCPCS: 74176; 80048; 81001; 85025; 96374; 96375; 99281; 99283; A4216; J2405

== ENCOUNTER 2020-11-08 11:04 | Emergency (ER) | payer MEDICAID, SELFPAY ==
[2020-11-08 11:06] VITALS: BP 156/84; PULSE 82; RESP 16; TEMP 36.3; O2SAT 97; BMI 35.3
--- NOTE | 2020-11-08 11:17 | CT_ITS ---
STUDY: CT ABDOMEN AND PELVIS WITHOUT CONTRAST REASON FOR EXAM: Male, 30 years old. Flank pain RADIATION DOSAGE (If Supplied By Facility): CTDIvol = ( 22.07 ) mGy, DLP = ( 1163.46 ) mGycm TECHNIQUE: Transaxial images were obtained from the dome of the diaphragm to the symphysis pubis without oral contrast, and without intravenous contrast. Sagittal and coronal images were reconstructed. Individualized dose optimization techniques were used for this CT. COMPARISON: None. FINDINGS: The visualized lung bases are unremarkable. The visualized portions of the heart are within normal limits. Normal liver. Normal gallbladder and extrahepatic biliary system. Normal spleen. Normal pancreas. Normal bilateral adrenal glands. No obstructive uropathy, there are punctate nonobstructing right renal stones. Normal visualized stomach. Normal small intestine. Normal colon. The appendix is visualized and appears normal. Appendix best seen on coronal recon images 56 through 61 Normal abdominal aorta. Normal inferior vena cava. Normal retroperitoneum. Normal urinary bladder. Normal abdominal wall. Normal osseous structures. CT/Abdomen/Pelvis without Cont IMPRESSION: No obstructive uropathy, nonobstructing right nephrolithiasis No CT evidence of an acute inflammatory process, normal appendix visualized No free intraperitoneal fluid, air, or suspicious adenopathy Electronically Signed: Khang Hilliard MD at 11:58 EDT , Service support ,
--- NOTE | 2020-11-08 11:25 | EX.ED.DYSGE1 ---
HPI History of Present Illness Chief Complaint: Flank Pain Narrative Narrative: Patient presents with worsening left flank pain lower abdominal crampy pain abdominal pain all of which began around Saturday he was seen in the emergency department few days ago diagnosed with a 2 mm kidney stone on the left told to follow-up due to the holiday he could not follow-up he reports the oxycodone he was prescribed did not help he has had no vomiting bowel bladder habits been normal no fever no cough no history of GI illness he is able to eat and drink the pain is intermittently severe cramping resolves he indicates his stools are without blood he has history of asthma this generally well controlled [facility] Medical History Asthma Chronic neck and back pain History of humerus fracture Migraines Shoulder pain Home Medications albuterol sulfate 1 - 2 puff INHALATION Q4H PRN PRN 10/28/18 [History Last Taken Unknown] ondansetron 4 mg PO Q8H PRN PRN #12 tab 11/04/20 [Rx Last Taken Unknown] oxycodone-acetaminophen [Endocet] 1 tab PO Q6H PRN 3 Days #12 tab 11/04/20 [Rx Last Taken Unknown] tamsulosin [Flomax] 0.4 mg PO DAILY #7 cap 11/04/20 [Rx Last Taken Unknown] ibuprofen 600 mg PO Q6H PRN #20 tablet 11/08/20 [Rx Last Taken Unknown] Allergy/AdvReac Type Severity Reaction Status Date / Time No Known Allergies Allergy Verified 11/08/20 11:05 Social History Smoking Status: Light Smoker (<10/day) alcohol intake: never ROS ROS ED Constitutional Constitutional ED: Reports subjective, sweats and other; Denies chills, fever(s) or weight loss Eyes Eyes: Denies blurry vision or change in vision ENT ENT ED: Denies ear pain Cardiovascular Cardiovascular: Denies chest pain or palpitations Respiratory/Chest Respiratory/Chest: Denies dyspnea Gastrointestinal Gastrointestinal: Reports abdominal pain; Denies nausea or vomiting Genitourinary Genitourinary ED: Denies dysuria or hematuria Musculoskeletal Musculoskeletal: Denies arthralgias or myalgias Integumentary Reports rash; Denies abscess Neurologic Neurologic: Denies weakness Psychiatric Psychiatric: Denies anxiety or depression Endocrine Endocrinology: Denies polydipsia or polyuria Allergic/Immunologic Allergic/Immunologic ED: Denies urticaria EXAM Physical Exam Const Vital Signs: 11/08/20 11:06 Temperature 97.3 F L Temperature Source Temporal Pulse Rate 82 Respiratory Rate 16 Blood Pressure 156/84 H Blood Pressure Mean 108 Pulse Ox 97 Oxygen Delivery Method Room Air Positive well developed General Appearance ED: well developed HEENT Reports normocephalic Negative for trauma Eyes EOMs intact bilaterally Neck supple Chest Wall inspection of chest normal Resp normal respiratory effort Cardio regular rate GI non-tender and non-distended Back/Spine Back/Spine Narrative: unremarkable Extremity normal to inspection Neuro oriented x3 and CN's II-XII intact bilaterally Sensorium / Orientation: alert Psych mental status grossly normal Skin no rashes or lesions noted MDM MDM MDM Narrative Medical decision making narrative: The patient is in no distress his abdominal exam really is unremarkable the back very mild left flank pain, his vital signs are unremarkable given his complaints and all the above ED screening evaluation with labs CT pain management The patient's ED screening labs are all unremarkable UA unremarkable, CT abdomen pelvis shows the 2 mm left UVJ stone obstruction is resolved the CT Abdo pelvis today shows nothing acute no signs of any inflammatory process or abnormality Discussed the patient he understands, feeling better, this time will stay on his meds bland diet follow-up as instructed return for change in symptoms Lab Data Labs: Laboratory Results - last 24 hr 11/08/20 11/08/20 11/08/20 11:20 11:20 11:30 WBC 3.7 L RBC 5.69 Hgb 15.3 Hct 48.4 MCV 85.1 MCH 26.9 L MCHC 31.6 L RDW Std Deviation 41.4 RDW Coeff of Edson 13.3 Plt Count 163 MPV 10.0 Immature Gran % (Auto) 0.000 Neut % (Auto) 50.6 Lymph % (Auto) 37.4 [place] % (Auto) 6.4 Eos % (Auto) 5.1 H Baso % (Auto) 0.5 Absolute Neuts (auto) 1.9 L Absolute Lymphs (auto) 1.40 Nucleated RBC % 0 Sodium 139 Potassium 3.9 Chloride 107 Carbon Dioxide 29.0 Anion Gap 3 L BUN 10 Creatinine 0.90 Estim Creat Clear Calc 137.00 Est GFR (MDRD) Af Amer 126 Est GFR (MDRD) Non-Af 104 BUN/Creatinine Ratio 11.1 Glucose 91 Calcium 8.7 Urine Color Yellow Urine Clarity Clear Urine pH 8.0 Ur Specific [place] 1.010 Urine Protein Negative Urine Glucose (UA) Normal Urine Ketones Negative Urine Occult Blood Negative Urine Nitrite Negative Urine Bilirubin Negative Urine Urobilinogen Normal Ur Leukocyte Esterase 25 H Urine RBC 0 SEEN Urine WBC 0-5 SEEN Ur Squamous Epith Cells 0-5 SEEN Urine Bacteria 1+ Urine Mucus 0 SEEN Radiography Diagnostic Testing: Radiology Impression Abdomen/Pelvis CT 11/08/20 11:17 IMPRESSION: No obstructive uropathy, nonobstructing right nephrolithiasis No CT evidence of an acute inflammatory process, normal appendix visualized No free intraperitoneal fluid, air, or suspicious adenopathy Electronically Signed: Khang Hilliard MD at 11:58 EDT , Service support , Discharge Plan Triage Chief Complaint: Flank Pain ED Provider: Domenico Hope Dx/Rx/DC Orders Clinical Impression: Unspecified renal colic Instructions: ED Flank Pain, Uncertain Cause Prescriptions: New ibuprofen 600 MG tablet 600 mg PO Q6H PRN Qty: 20 RF: 0 No Action albuterol sulfate 1 INHALER inhaler 1 - 2 puff INHALATION Q4H PRN PRN (Reason: BREATHING) RF: 0 oxycodone-acetaminophen [Endocet] 5-325 mg tablet 1 tab PO Q6H PRN (Reason: pain) 3 Days Qty: 12 RF: 0 ondansetron 4 mg tablet,disintegrating 4 mg PO Q8H PRN PRN (Reason: Nausea) Qty: 12 RF: 0 tamsulosin [Flomax] 0.4 mg capsule 0.4 mg PO DAILY Qty: 7 RF: 0 Primary Care Provider: Care Physician,No Primary Referrals: Dell Vicente MD [STAFF PHYSICIAN] - Care Physician,No Primary [Primary Care Provider] -
[2020-11-08] MEDS: Ketorolac 30 MG/ML Syringe IV (11:29)
[2020-11-08] MEDS: morphine 8 MG/ML Syringe IV (11:30)
[2020-11-08 11:31] LABS: Absolute Neutrophil Count 1.9 X10^3/uL (2.0-7.7); Basophil# 0.02 X10^3/uL; Basophil% 0.5 % (0-1); Eosinophil# 0.19 X10^3/uL; Eosinophils% 5.1 % (0-5); Hematocrit 48.4 % (40-54); Hemoglobin 15.3 g/dL (13.0-16.5); Lymphocyte % 37.4 % (19-41); Mean Corp Hgb Conc 31.6 g/dL (32-36); Mean Corpuscular Hgb 26.9 pg (27.0-32.0); Mean Corpuscular Volume 85.1 fL (80-94); Monocyte# 0.24 X10^3/uL; Monocyte% 6.4 % (0-10); NRBC Flagged by Analyzer 0 % (0-5); Neutrophil # 1.89 X10^3/uL (2.7-7.7); Neutrophil % 50.6 % (47-70); Platelet Count 163 K/mm3 (150-450); RBC Distribution Width CV 13.3 % (11.6-14.6); RBC Distribution Width SD 41.4 fl (35.1-43.9); Red Blood Count 5.69 M/mm3 (4.6-6.2); White Blood Count 3.7 K/mm3 (4.4-11.0)
[2020-11-08] MEDS: 0.9% Normal Saline 1,000 ML 250 ML IV (11:31)
[2020-11-08] MEDS: Ondansetron 4 MG/2 ML Vial IV (11:37)
[2020-11-08 11:43] LABS: Anion Gap 3 (5-15); BUN 10 mg/dL (7-18); BUN/Creat Ratio 11.1 RATIO (10-20); Calcium,Total 8.7 mg/dL (8.5-10.1); Chloride 107 mmol/L (98-107); EST Glomerular Filtration Rate 104 mL/min (>60); Est Glom Filt Rate - Afr Amer 126 mL/min (>60); Glucose 91 mg/dL (74-106); Potassium 3.9 mmol/L (3.5-5.1); Sodium Level 139 mmol/L (136-145)
[2020-11-08 11:44] LABS: Mucous, Urine 0 SEEN /hpf (<or=2+); Red Blood Cells-Urine 0 SEEN /hpf (0-5)
[2020-11-08 11:48] LABS: Color, Urine Yellow (Yellow); Glucose, Dipstick Normal (Normal); Ketone-Dipstick Negative (Negative); Leukocyte Esterase-Dipstick 25 /ul (Negative); Nitrite-Dipstick Negative (Negative); Occult Blood-Urine Negative /ul (Negative); Protein-Dipstick Negative (Negative); Urine Bilirubin Dipstick Negative (Negative); Urine Clarity Clear (Clear); Urine Urobilinogen Normal (Normal)
[2020-11-08 11:55] LABS: Bacteria 1+ /hpf (None Seen); Squamous Epithelial Cells - UA 0-5 SEEN /hpf (0-5); White Blood Cells 0-5 SEEN /hpf (0-5)
== END 2020-11-08 12:42 | disposition home or self-care (01) ==
LOC: ED 12:13
PROVIDERS: Emergency Provider Emergency Medicine
DX: N23 Unspecified renal colic (principal); F17.200 Nicotine dependence, unspecified, uncomplicated; Z79.899 Other long term (current) drug therapy
CPT/HCPCS: 74176; 80048; 81001; 85025; 96374; 96375; J7030; A4216; J2405

== ENCOUNTER 2020-11-08 18:45 | Emergency (ER) | payer MEDICAID, SELFPAY ==
[2020-11-08 11:06] VITALS: BMI 35.3
[2020-11-08 18:46] VITALS: BP 151/81; BP 151/89; PULSE 93; PULSE 96; RESP 16; TEMP 36.7; O2SAT 96; BMI 35.6
--- NOTE | 2020-11-08 19:47 | CT_ITS ---
STUDY: CTA CHEST REASON FOR EXAM: Male, 30 years old. Hemoptysis RADIATION DOSAGE (If Supplied By Facility): CTDIvol = ( 12.66 ) mGy, DLP = ( 512.93 ) mGycm TECHNIQUE: The examination was performed with the intravenous administration of IV 100mL Isovue-370. Post-processing of the angiographic images was performed, with multiplanar reformation and 3D reconstruction. Individualized dose optimization techniques were used for this CT. COMPARISON: Chest x-ray from 10/12/[address] chest 10/28/2018 FINDINGS: Normal enhancement of the main pulmonary artery and right and left pulmonary arteries. Normal enhancement of the bilateral peripheral pulmonary arteries. There is no demonstrated pulmonary embolism. Normal thoracic aorta and visualized great vessels. There is no demonstrated aortic dissection. Normal heart and pericardium. Normal mediastinum. Normal hilar regions. Normal visualized trachea and bronchi. Mild patchy interstitial infiltrates improved. Normal pulmonary parenchyma. Normal pleura. Normal chest wall structures. Mild scoliosis. Normal visualized upper abdomen. CT/CTA Chest W/WO Contrast IMPRESSION: Improvement of mild bilateral interstitial infiltrates Electronically Signed: Jamal Arreguin MD at 21:21 EDT , Service support ,
[2020-11-08 20:07] VITALS: PULSE 112; RESP 18
[2020-11-08] MEDS: Ipratropium/Albuterol Sulfate 3 ML AMPUL.NEB INHALATION (20:07)
[2020-11-08] MEDS: Morphine 4 MG/ML Syringe IV (20:09)
[2020-11-08 20:18] LABS: Absolute Lymphocyte Count 1.32 X10^3/uL (0.83-4.51); Absolute Neutrophil Count 3.1 X10^3/uL (2.0-7.7); Basophil# 0.01 X10^3/uL; Basophil% 0.2 % (0-1); Hemoglobin 15.4 g/dL (13.0-16.5); Lymphocyte # 1.32 X10^3/ul (0.83-4.51); Mean Corp Hgb Conc 31.4 g/dL (32-36); Mean Corpuscular Hgb 26.8 pg (27.0-32.0); Mean Corpuscular Volume 85.4 fL (80-94); Mean Platelet Vol. 10.6 fl (6.2-12.0); Monocyte# 0.34 X10^3/uL; NRBC Flagged by Analyzer 0 % (0-5); Neutrophil # 3.09 X10^3/uL (2.7-7.7); Neutrophil % 63.4 % (47-70); Platelet Count 168 K/mm3 (150-450); RBC Distribution Width CV 13.3 % (11.6-14.6); RBC Distribution Width SD 41.4 fl (35.1-43.9); Red Blood Count 5.74 M/mm3 (4.6-6.2); White Blood Count 4.9 K/mm3 (4.4-11.0)
[2020-11-08 20:33] LABS: ALB/GLOB Ratio 0.9 RATIO (0.9-2.4); AST(SGOT) 32 U/L (15-37); Alanine Aminotransfer ALT/SGPT 54 U/L (16-61); Albumin, Serum 3.7 g/dL (3.2-5.0); Alkaline Phosphatase 71 U/L (45-117); Anion Gap 3 (5-15); BUN 10 mg/dL (7-18); BUN/Creat Ratio 10.9 RATIO (10-20); Calcium,Total 8.9 mg/dL (8.5-10.1); Chloride 106 mmol/L (98-107); Creatinine, Serum 0.92 mg/dL (0.70-1.30); EST Glomerular Filtration Rate 102 mL/min (>60); Est Glom Filt Rate - Afr Amer 123 mL/min (>60); Estimated Creatinine Clearance 134.02 ml/min; Globulin 4.1 g/dL (2.2-4.2); Glucose 75 mg/dL (74-106); Partial Thromboplast Time 25.3 Seconds (24.1-36.2); Potassium 3.5 mmol/L (3.5-5.1); Protein, Total 7.8 g/dL (6.4-8.2); Sodium Level 140 mmol/L (136-145)
--- NOTE | 2020-11-08 20:46 | EDS_ITS ---
HPI History of Present Illness Chief Complaint: GI Bleed Informant: patient Onset/Context/Timing Onset: Today and Hours (3) Context: Sudden Onset Timing: Continuous Quality: Red Location: Throat, chest Worsened by: Nothing Relieved by: Nothing Narrative Narrative: Patient presents with hemoptysis and hematemesis that began tonight. Patient states it began approximately 3 hours prior to arrival. Patient states he is coughing up and vomiting up red blood. Patient states that when he coughs he has pain in his right shoulder area. Patient states that when he vomits he gets dizzy and lightheaded. Patient admits to subjective chills and sweats. Patient denies any fevers. Patient also admits to a sore throat. Patient states nothing makes it worse and nothing makes it better. [facility] Medical History Asthma Chronic neck and back pain History of humerus fracture Migraines Shoulder pain Home Medications albuterol sulfate 1 - 2 puff INHALATION Q4H PRN PRN 10/28/18 [History Last Taken Unknown] ondansetron 4 mg PO Q8H PRN PRN #12 tab 11/04/20 [Rx Last Taken Unknown] oxycodone-acetaminophen [Endocet] 1 tab PO Q6H PRN 3 Days #12 tab 11/04/20 [Rx Last Taken Unknown] tamsulosin [Flomax] 0.4 mg PO DAILY #7 cap 11/04/20 [Rx Last Taken Unknown] ibuprofen 600 mg PO Q6H PRN #20 tablet 11/08/20 [Rx Last Taken Unknown] Allergy/AdvReac Type Severity Reaction Status Date / Time No Known Allergies Allergy Verified 11/08/20 11:05 Social History Smoking Status: Light Smoker (<10/day) alcohol intake: never ROS ROS ED Constitutional Constitutional ED: Reports chills, subjective and sweats; Denies fever(s) Eyes Eyes: Denies blurry vision or change in vision ENT ENT ED: Reports sore throat; Denies rhinorrhea Cardiovascular Cardiovascular: Denies chest pain or palpitations Respiratory/Chest Respiratory/Chest: Reports cough and dyspnea Gastrointestinal Gastrointestinal: Reports nausea and vomiting; Denies melena Genitourinary Genitourinary ED: Denies dysuria or hematuria Musculoskeletal Musculoskeletal: Reports back pain; Denies neck pain Integumentary Denies abscess or rash Neurologic Neurologic: Reports headache(s); Denies weakness Allergic/Immunologic Allergic/Immunologic ED: Denies mouth swelling or urticaria EXAM Physical Exam Const Vital Signs: 11/08/20 18:46 11/08/20 20:07 11/08/20 21:08 Temperature 98.0 F Temperature Source Temporal Pulse Rate 93 112 H 93 Respiratory Rate 16 18 21 H Respiratory Pattern Normal Blood Pressure 151/89 H 155/105 H Blood Pressure Mean 109 121 Pulse Ox 96 98 Oxygen Delivery Method Room Air Room Air 11/08/20 23:00 Temperature Temperature Source Pulse Rate Respiratory Rate 18 Respiratory Pattern Blood Pressure Blood Pressure Mean Pulse Ox Oxygen Delivery Method Room Air Positive well nourished, well developed and obese General Appearance ED: well developed Nutritional Appearance: obese HEENT Reports moist mucous membranes Neck supple and no JVD Chest Wall palpation of chest normal Resp normal respiratory effort Auscultation: wheezes Cardio regular rate and regular rhythm GI normal to inspection, nondistended, normoactive bowel sounds and non-tender Palpation: soft Extremity normal to inspection General Extremety ED: Negative for edema or tenderness General Extremity: Negative for edema Neuro oriented x3, CN's II-XII intact bilaterally and no sensory deficits noted Sensorium / Orientation: alert Motor Exam: strength 5/5 throughout Psych mental status grossly normal MDM MDM MDM Narrative Medical decision making narrative: CBC and comprehensive metabolic profile were obtained and were within normal limits. PT with INR and PTT were normal. CTA of the chest was obtained. There are mild bilateral infiltrates. These are imp roved compared to previous testing. This was interpreted by the radiologist and reviewed by myself. Patient was given morphine and a DuoNeb treatment here. Patient feels better on reevaluation. Patient was advised of his findings. Patient was instructed to follow-up with his primary care physician in 5 to 7 days. Patient understood and was agreeable with the plan. All questions were answered. Lab Data Attestation: I reviewed the patient's lab results. Labs: Laboratory Results - last 24 hr 11/08/20 11/08/20 11/08/20 20:05 20:05 20:05 WBC 4.9 RBC 5.74 Hgb 15.4 Hct 49.0 MCV 85.4 MCH 26.8 L MCHC 31.4 L RDW Std Deviation 41.4 RDW Coeff of Edson 13.3 Plt Count 168 MPV 10.6 Immature Gran % (Auto) 0.400 Neut % (Auto) 63.4 Lymph % (Auto) 27.0 [place] % (Auto) 7.0 Eos % (Auto) 2.0 Baso % (Auto) 0.2 Absolute Neuts (auto) 3.1 Absolute Lymphs (auto) 1.32 Nucleated RBC % 0 PT 13.0 INR 1.0 APTT 25.3 Sodium 140 Potassium 3.5 Chloride 106 Carbon Dioxide 31.0 Anion Gap 3 L BUN 10 Creatinine 0.92 Estim Creat Clear Calc 134.02 Est GFR (MDRD) Af Amer 123 Est GFR (MDRD) Non-Af 102 BUN/Creatinine Ratio 10.9 Glucose 75 Calcium 8.9 Total Bilirubin 0.60 AST 32 ALT 54 Alkaline Phosphatase 71 Total Protein 7.8 Albumin 3.7 Globulin 4.1 Albumin/Globulin Ratio 0.9 Radiography Diagnostic Testing: Radiology Impression Chest CTA 11/08/20 19:47 IMPRESSION: Improvement of mild bilateral interstitial infiltrates Electronically Signed: Jamal Arreguin MD at 21:21 EDT , Service support , Discharge Plan Triage Chief Complaint: GI Bleed ED Provider: George Narayanan Dx/Rx/DC Orders Clinical Impression: Hemoptysis, unspecified Instructions: ED Hemoptysis Prescriptions: No Action albuterol sulfate 1 INHALER inhaler 1 - 2 puff INHALATION Q4H PRN PRN (Reason: BREATHING) RF: 0 oxycodone-acetaminophen [Endocet] 5-325 mg tablet 1 tab PO Q6H PRN (Reason: pain) 3 Days Qty: 12 RF: 0 ondansetron 4 mg tablet,disintegrating 4 mg PO Q8H PRN PRN (Reason: Nausea) Qty: 12 RF: 0 tamsulosin [Flomax] 0.4 mg capsule 0.4 mg PO DAILY Qty: 7 RF: 0 ibuprofen 600 MG tablet 600 mg PO Q6H PRN Qty: 20 RF: 0 Stand Alone Forms: ED Work / School Excuse Primary Care Provider: Care Physician,No Primary Referrals: Trey Tapia MD [STAFF PHYSICIAN] - 5-7 Days Care Physician,No Primary [Primary Care Provider] - Disposition Disposition: Home, self care
[2020-11-08 21:08] VITALS: BP 155/105; PULSE 93; RESP 21; O2SAT 98
[2020-11-08 23:00] VITALS: RESP 18
[2020-11-09 00:01] VITALS: BP 153/100; PULSE 97; RESP 20; O2SAT 99
== END 2020-11-09 00:02 | disposition home or self-care (01) ==
PROVIDERS: Emergency Provider Emergency Medicine
DX: R04.2 Hemoptysis (principal); R91.8 Other nonspecific abnormal finding of lung field; K92.0 Hematemesis; N23 Unspecified renal colic; J02.9 Acute pharyngitis, unspecified; R42 Dizziness and giddiness; J45.909 Unspecified asthma, uncomplicated; M25.511 Pain in right shoulder; M54.9 Dorsalgia, unspecified; M54.2 Cervicalgia; G89.29 Other chronic pain; F17.200 Nicotine dependence, unspecified, uncomplicated; E66.9 Obesity, unspecified; Z79.899 Other long term (current) drug therapy
CPT/HCPCS: 71275; 74176; 80048; 80053; 81001; 85025; 85610; 85730; 94640; 96374; 96375; 99281; 99284; J7030; Q9967; A4216; J2405

== ENCOUNTER 2021-07-22 18:23 | Emergency (ER) | payer MEDICAID, SELFPAY ==
[2021-07-22 18:24] VITALS: BP 140/95; PULSE 99; RESP 18; TEMP 36.2; O2SAT 99; BMI 35.9
--- NOTE | 2021-07-22 18:43 | EDS_ITS ---
HPI History of Present Illness Chief Complaint: Lower Extremity Injury Narrative Narrative: Patient presents with injury to his left ankle that he sustained approximately 3 days ago. He states that he got up from the toilet and started having left ankle pain. It is worse with standing and walking. He has not had any fever or chills. He does not remember twisting it. He has not taken anything for analgesia. He denies any history of gout. No redness to the area or overt swelling. [facility] Medical History Asthma Chronic neck and back pain History of humerus fracture Migraines Shoulder pain Home Medications albuterol sulfate 1 - 2 puff INHALATION Q4H PRN PRN 10/28/18 [History Last Taken Unknown] Allergy/AdvReac Type Severity Reaction Status Date / Time No Known Allergies Allergy Verified 07/22/21 18:26 Social History Smoking Status: Former smoker alcohol intake: never ROS ROS ED ROS Narrative Constitutional: No fever, no chills. HEENT: No sore throat. No neck pain. No loss of vision. No rhinorrhea. Cardiovascular: No chest pain. No palpitations. No pedal edema. Respiratory: No cough, no shortness of breath. Abdominal: No abdominal pain. No nausea. No vomiting. Genitourinary: No dysuria. No hematuria. Musculoskeletal: No myalgias. Left diffuse ankle pain. Neurologic: No headaches. No dizziness. No lightheadedness. Skin: No rash. No change in color. Psychiatric: No depression. No anxiety. EXAM Physical Exam Narrative Exam Narrative: Afebrile. Vital signs noted. HEENT: Normocephalic. Atraumatic. PERRL, EOMI. Neck soft and supple. No point tenderness or step off. Cardiovascular: Regular rate and rhythm. No murmurs, rubs, or gallops appreciated. Respiratory: No tachypnea. Lungs clear to auscultation bilaterally. Gastrointestinal: Abdomen soft, nontender, with normoactive bowel sounds. No rebound or guarding. Neurological: Awake. Alert. Nonfocal, nonlateralizing. Skin: No rash. Normal color. No pallor. Musculoskeletal: No pedal edema. Mild tenderness to palpation diffuse left ankle. Tenderness over talofibular ligament. Palpable dorsalis pedis pulse. No noted erythema. No palpable Achilles tendon deficit. No proximal fibular head tenderness or calf tenderness.. Const Vital Signs: 07/22/21 18:24 Temperature 97.1 F L Temperature Source Temporal Pulse Rate 99 Respiratory Rate 18 Blood Pressure 140/95 H Blood Pressure Mean 110 Pulse Ox 99 Oxygen Delivery Method Room Air MDM MDM MDM Narrative Medical decision making narrative: Patient was administered ibuprofen 800 mg orally. X-rays were obtained of the left ankle. I do not think this is gout. He has no pain, overt swelling, or redness noted. X-rays of the ankle show no acute process. He will be placed in an Aircast. He will take [id number] anti-inflammatories. He will continue ice and elevation at home. He states he has crutches. I will write him a note to allow his crutches at work for the next week. He will follow up with a primary care physician. 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 Disposition was discharged home in stable condition. Radiography Diagnostic Testing: Clinical Impression(s) from Imaging Studies Ankle X-Ray 07/22/21 18:45 IMPRESSION: Negative. Electronically Signed: Anil Salinas MD at 19:47 EST , Discharge Plan Triage Chief Complaint: Lower Extremity Injury ED Provider: Allen Durant Dx/Rx/DC Orders Clinical Impression: Acute ankle pain, Ankle sprain Instructions: ED Arthralgia, ED Ankle Sprain (Adult) Prescriptions: No Action albuterol sulfate 1 INHALER inhaler 1 - 2 puff INHALATION Q4H PRN PRN (Reason: BREATHING) RF: 0 Primary Care Provider: Care Physician,No Primary Referrals: Lonnie Schulz MD [STAFF PHYSICIAN] - 1 Week Care Physician,No Primary [Primary Care Provider] - Disposition Disposition: Home, Self Care
--- NOTE | 2021-07-22 18:45 | RAD_ITS ---
INDICATION: PAIN EXAMINATION/TECHNIQUE: X-RAY - LEFT XR Ankle Min 3 Views 3 VIEWS COMPARISON: None. FINDINGS: SOFT TISSUES: No soft tissue swelling or gas. No radiopaque foreign body. BONES/JOINTS: No acute fracture or subluxation.. Normal alignment. Preservation of the joint space.. No sclerotic or destructive changes observed. RAD/Ankle min 3 Views IMPRESSION: Negative. Electronically Signed: Anil Salinas MD at 19:47 EST ,
[2021-07-22] MEDS: Ibuprofen 400 MG Tablet 800 MG PO (18:51)
[2021-07-22 20:12] VITALS: BP 152/97; PULSE 95; RESP 18; O2SAT 99
== END 2021-07-22 20:32 | disposition home or self-care (01) ==
PROVIDERS: Emergency Provider Emergency Medicine; Visit Provider Emergency Medicine
DX: S93.402A Sprain of unspecified ligament of left ankle, initial encounter (principal); Z87.891 Personal history of nicotine dependence; J45.909 Unspecified asthma, uncomplicated; G89.29 Other chronic pain; X58.XXXA Exposure to other specified factors, initial encounter
CPT/HCPCS: 73610; 99284

== ENCOUNTER 2022-01-10 15:44 | Emergency (ER) | payer MEDICAID, SELFPAY ==
[2022-01-10 15:44] VITALS: BP 132/93; PULSE 95; RESP 16; TEMP 36.4; O2SAT 98; BMI 34.5
--- NOTE | 2022-01-10 16:00 | CT_ITS ---
STUDY: CT BRAIN WITHOUT CONTRAST REASON FOR EXAM: Male, 31 years old. head trauma TECHNIQUE: Transaxial CT imaging of the brain was performed without administration of intravenous contrast material. Individualized dose optimization techniques were used for this CT. COMPARISON: 820 FINDINGS: Normal calvarium. Normal soft tissues. Normal size ventricles and extra-axial spaces for the patient''s age. Normal white matter tracts of the cerebral hemispheres. Normal basal ganglia and thalami. Normal brainstem. Normal cerebellum. There is no intracranial hemorrhage. There are no findings of an acute ischemic infarction. Normal visualized paranasal sinuses. ASPECTS 10 CT/Brain/Head without Contrast IMPRESSION: There are no acute intracranial findings. Electronically Signed: Avila Farrell MD at 16:36 EDT ,
--- NOTE | 2022-01-10 16:00 | EX.ED.GENINJ ---
HPI History of Present Illness Chief Complaint: Head Injury Informant: patient Onset/Context/Timing Onset: Days Mechanism/Context: Blunt Injury and Fall Current Severity: Mild Maximum Severity: Mild Associated Symptoms Associated Symptoms: Negative for Parasthesias, Weakness, Loss of function, Inability to ambulate, Loss of consciousness or Amnesia Narrative Narrative: 31-year-old male no seen past medical or surgical history. States that he was chasing his child around their home 2 days ago when he hit his head on a TV stand went down. Denies any LOC or other injuries. He senses at times and trouble concentrating and has had other falls. He denies any significant headache. He was not knocked out. He is on no blood thinners. States he is having trouble focusing. Denies any nausea or vomiting. Prior similar symptoms: No Recent Illness/Hospitalization: No PFSH PFSH Medical History Asthma Chronic neck and back pain History of humerus fracture Migraines Shoulder pain Home Medications albuterol sulfate 90 mcg/actuation aerosol inhaler 1 - 2 puff inhalation Q4H PRN PRN BREATHING 10/28/18 [History Last Taken Unknown] Allergy/AdvReac Type Severity Reaction Status Date / Time No Known Allergies Allergy Verified 01/10/22 15:46 Social History Smoking Status: Former smoker alcohol intake: never ROS ROS ED ROS Narrative Denies. Review of Systems ROS Unobtainable: Denies due to encephalopathy Constitutional Constitutional ED: Denies chills or fever(s) Eyes Eyes: Denies blurry vision ENT ENT ED: Denies ear pain Cardiovascular Cardiovascular: Denies chest pain Respiratory/Chest Respiratory/Chest: Denies cough or dyspnea Gastrointestinal Gastrointestinal: Denies abdominal pain, nausea or vomiting Genitourinary Genitourinary ED: Denies dysuria or hematuria Musculoskeletal Musculoskeletal: Denies arthralgias Integumentary Denies abscess Neurologic Neurologic: Denies headache(s) Psychiatric Psychiatric: Denies anxiety Endocrine Endocrinology: Denies cold intolerance Hematologic/Lymphatic Hematologic/Lymphatic: Denies easy bleeding Allergic/Immunologic Allergic/Immunologic ED: Denies mouth swelling EXAM Physical Exam Narrative Exam Narrative: 28-year-old male no acute distress vital signs stable afebrile. H EENT exam very superficial laceration top of the scalp is 2 days old. No bleeding. No discharge. No hematoma. Give dry reactive light his motions are intact. Neck nontender full range of motion. Back and spine nontender. Lungs are clear. Heart regular rhythm. No murmur. Chest were nontender. Abdomen soft nontender. Pelvic girdle intact. Moving all 4 extremities. 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 Dorsi plantarflexion intact. Normal range of motion. No deformities. Neurologic exam normal. NIH is 0. GCS of 15. Const Vital Signs: 01/10/22 15:44 01/10/22 16:00 Temperature 97.6 F L Temperature Source Temporal Pulse Rate 95 Respiratory Rate 16 Respiratory Effort Normal Non-Labored Respiratory Pattern Normal Blood Pressure 132/93 H Blood Pressure Mean 106 Pulse Ox 98 Oxygen Delivery Method Room Air Positive well nourished, well developed and obese; Negative for cachectic, contractures or unkempt General Appearance ED: well developed and NAD; Negative for unkempt, cachectic or contractures Nutritional Appearance: obese; Negative for cachectic HEENT HEENT Narrative: Top of the scalp is a superficial laceration is 2 days old. No dried blood or bleeding. trauma; Negative for atraumatic or tenderness Eyes PERRL and EOMs intact bilaterally General Eye ED: Yes other Neck full ROM General: Negative for tenderness or other Chest Wall inspection of chest normal and palpation of chest normal Breast/Axilla Inspection: Negative for other Resp normal respiratory effort and clear to auscultation bilaterally Effort and Inspection: Negative for pain with movement Auscultation: Negative for rales, rhonchi or wheezes Cardio regular rhythm, S1 normal heart sound, S2 normal heart sound and no murmurs Jugular Venous Distention: Negative for other Palpation: Negative for palpable S3 Rate: Negative for regular rate Rhythm: Negative for abnormal rhythm GI normal to inspection, nondistended, normoactive bowel sounds, non-tender, non-distended and no masses Inspection: Negative for abdominal distention Auscultation: Negative for normoactive bowel sounds Palpation: Negative for soft or tender Bladder / Kidney Exam: No other Back/Spine normal to inspection and no thoracic nor lumbar tenderness General Back: Negative for CVA tenderness Thoracic Spine / Upper Back: Negative for thoracic spinal tenderness Lumbar Spine / Lower Back: Negative for straight leg raise negative bilaterally Extremity normal to inspection and full ROM General Extremety ED: Negative for deformity or edema General Extremity: Negative for deformity or edema Neuro oriented x3, CN's II-XII intact bilaterally, moves all extremities, no focal motor deficits and no sensory deficits noted [place] Coma Scale: document GCS findings Spontaneous Obeys Commands Oriented 15 Sensorium / Orientation: alert, oriented to person, oriented to place and oriented to time; Negative for orientation impaired, lethargic or stuporous Motor Exam: strength 5/5 throughout Psych mental status grossly normal and thought process normal Appearance: Negative for unkempt Attitude: No agitated Mood & Affect: Negative for depressed Skin no rashes or lesions noted, No no wounds and no jaundice Rashes: No rashes noted Trauma: Negative for abrasion MDM MDM MDM Narrative Medical decision making narrative: Patient with close head injury 2 days is having recurrent falls, trouble focusing, etc. Clinically I think he might have a mild concussion. Imaging will be obtained of a CAT scan of his brain. Repeat exam after formal CAT scan reading was obtained and radiologist patient is doing well be discharged home with head injury instructions. Radiography Diagnostic Testing: CAT scan of brain shows no acute abnormality. Read by radiologist reviewed by me. Discharge Plan Triage Chief Complaint: Head Injury ED Provider: Bolivar Irizarry Dx/Rx/DC Orders Clinical Impression: Closed head injury, Concussion Instructions: ED Concussion Prescriptions: No Action albuterol sulfate 1 INHALER inhaler 1 - 2 puff INHALATION Q4H PRN PRN (Reason: BREATHING) Primary Care Provider: Care Physician,No Primary Referrals: Darryn Ho MD [NON-STAFF] - 10-14 Days if not better Care Physician,No Primary [Primary Care Provider] - Activity Restrictions/Additional Instructions: You have a mild concussion. Tylenol Motrin for pain. Plenty of fluids. This should progressively improve but it may take several weeks. The CAT scan of your brain was normal. Disposition Disposition: Home, Self Care
[2022-01-10 16:56] VITALS: PULSE 98; RESP 16; O2SAT 97
== END 2022-01-10 17:01 | disposition home or self-care (01) ==
PROVIDERS: Emergency Provider Emergency Medicine; Visit Provider Emergency Medicine
DX: S06.0X0A Concussion without loss of consciousness, initial encounter (principal); S01.01XA Laceration without foreign body of scalp, initial encounter; W18.09XA Striking against other object with subsequent fall, initial encounter; R29.6 Repeated falls; J45.909 Unspecified asthma, uncomplicated; E66.9 Obesity, unspecified; Z87.891 Personal history of nicotine dependence
CPT/HCPCS: 70450; 99282

== ENCOUNTER 2023-10-06 10:25 | Emergency (ER) | payer MEDICAID, SELFPAY ==
[2023-10-06 10:25] VITALS: BP 138/102; PULSE 60; RESP 18; TEMP 36.4; O2SAT 98; BMI 32.1
[2023-10-06 10:53] LABS: Bacteria 0 SEEN /hpf (None Seen); Mucous, Urine 0 SEEN /hpf (<or=2+); Squamous Epithelial Cells - UA 0 SEEN /hpf (0-5)
[2023-10-06 10:56] LABS: Color, Urine YELLOW (Yellow); Glucose, Dipstick Normal (Normal); Ketone-Dipstick Negative (Negative); Leukocyte Esterase-Dipstick 25 /ul (Negative); Nitrite-Dipstick Negative (Negative); Occult Blood-Urine 50 /ul (Negative); Protein-Dipstick 30 mg/dl (Negative); Specific Gravity, Urine 1.025 (1.002-1.030); Urine Bilirubin Dipstick Negative (Negative); Urine Clarity Clear (Clear); Urine Urobilinogen Normal (Normal)
[2023-10-06 11:01] LABS: Red Blood Cells-Urine 0-5 SEEN /hpf (0-5); White Blood Cells 0-5 SEEN /hpf (0-5)
--- NOTE | 2023-10-06 11:01 | ED.VIS.GI ---
HPI HPI - GI History of Present Illness Chief Complaint: Flank Pain Narrative Narrative: 33-year-old male presenting with acute onset right flank pain. States it started about an hour ago. States it starts in the right lower flank and radiates around to his abdomen. He describes the pain as sharp and aching. He describes the pain is constant. Is associated symptoms of nausea and sweating. Denies dysuria or hematuria. Denies trauma. States he has no history of kidney stones. PFSH PFSH Medical History Asthma Chronic neck and back pain Community-acquired pneumonia History of humerus fracture Migraines Shoulder pain Home Medications albuterol sulfate 90 mcg/actuation aerosol inhaler 1 - 2 puff inhalation Q4H PRN PRN BREATHING 10/28/18 [History Last Taken Unknown] hydrocodone-acetaminophen 5-325mg 5mg-325mg 1 tab PO Q6H PRN PRN Pain 3 days #10 TABLETS 10/06/23 [Rx Last Taken Unknown] ondansetron 4 mg disintegrating tablet 4 mg PO Q8H PRN PRN Nausea #10 tabs 10/06/23 [Rx Last Taken Unknown] Allergy/AdvReac Type Severity Reaction Status Date / Time No Known Allergies Allergy Verified 10/06/23 10:25 Social History Smoking Status: Former smoker alcohol intake: never ROS ROS ED Constitutional Constitutional ED: Reports sweats; Denies chills or fever(s) Eyes Eyes: Denies blurry vision or change in vision ENT ENT ED: Denies ear pain or sore throat Cardiovascular Cardiovascular: Denies chest pain, palpitations or racing heartbeat Respiratory/Chest Respiratory/Chest: Denies cough, dyspnea or sputum Gastrointestinal Gastrointestinal: Reports nausea and vomiting; Denies abdominal pain, constipation or diarrhea Genitourinary Genitourinary ED: Denies dysuria, hematuria or urinary frequency Musculoskeletal Musculoskeletal: Reports back pain; Denies arthralgias, myalgias or neck pain Integumentary Denies abscess, Abrasions or rash Neurologic Neurologic: Denies headache(s), paresthesias or weakness Psychiatric Psychiatric: Denies anxiety, depression, suicidal ideation or suicidal thoughts Endocrine Endocrinology: Denies polydipsia or polyuria EXAM Physical Exam Const Vital Signs: 10/06/23 10:25 10/06/23 11:31 10/06/23 12:04 Temperature 97.5 F L 97.2 F L Temperature Source Temporal Temporal Pulse Rate 60 56 L 72 Respiratory Rate 18 18 16 Blood Pressure 138/102 H 133/98 H 137/88 H Blood Pressure Mean 114 109 104 Pulse Ox 98 100 99 Oxygen Delivery Method Room Air Room Air Room Air 10/06/23 13:10 Temperature 96.9 F L Temperature Source Oral Pulse Rate 71 Respiratory Rate 16 Blood Pressure 138/72 H Blood Pressure Mean 94 Pulse Ox 98 Oxygen Delivery Method Room Air Positive well nourished General Appearance ED: NAD; Negative for pallor HEENT Reports moist mucous membranes normocephalic and atraumatic Eyes PERRL General Eye ED: Yes pale conjunctiva Resp normal respiratory effort Cardio regular rate and regular rhythm GI Palpation: tender RLQ Back/Spine General Back: CVA tenderness right Extremity full ROM Neuro CN's II-XII intact bilaterally, moves all extremities and no sensory deficits noted Sensorium / Orientation: alert Motor Exam: strength 5/5 throughout Psych mental status grossly normal Attitude: agitated Mood & Affect: tearful Skin General Skin Exam: Negative for jaundice or pallor MDM MDM MDM Narrative Medical decision making narrative: Patient presenting with right flank pain. He denies history of kidney stones although looking to the medical record it does show that he has had kidney stones in the past. IV was established. Patient medicated with morphine, Zofran, Toradol, IV fluids. Urinalysis obtained shows 50 occult blood. No evidence of infection. Will obtain CBC to assess white blood cell count, hemoglobin and platelets. BMP to assess renal function and electrolytes. CT of the abdomen pelvis to rule out kidney stone. Differential includes kidney stone, UTI, pyelonephritis, colitis. 11:25 PM. I went back to discuss the patient's history with him again and he states he was unsure if he had a history of kidney stones and he did not recall that he did have this his history. He states he has not seen urology for this. He is never had surgery for kidney stones. CBC shows normal blood cell count, hemoglobin, platelets. BMP shows normal renal function, electrolytes, glucose. Urinalysis negative for infection. CT of the abdomen pelvis without contrast was obtained and shows a small stone in the urinary bladder. Patient counseled on findings. He will be given a short supply of [place] and Zofran for home as he still having pain and nausea. Return precautions were discussed. He was given urology follow-up. Impression: 1. Kidney stone 2. Nausea/vomiting Lab Data Labs: Laboratory Results - last 24 hr 10/06/23 10/06/23 10:45 11:15 WBC 5.3 RBC 5.91 Hgb 15.8 Hct 49.4 MCV 83.6 MCH 26.7 L MCHC 32.0 RDW Std Deviation 43.3 RDW Coeff of Edson 14.1 Plt Count 153 MPV 10.6 Immature Gran % (Auto) 0.000 Neut % (Auto) 51.3 Lymph % (Auto) 33.8 [place] % (Auto) 7.5 Eos % (Auto) 7.0 H Baso % (Auto) 0.4 Absolute Neuts (auto) 2.7 Absolute Lymphs (auto) 1.79 Nucleated RBC % 0 Sodium 141 Potassium 3.5 Chloride 109 H Carbon Dioxide 27.0 Anion Gap 5 BUN 15 Creatinine 0.97 Estim Creat Clear Calc 142.54 Est GFR (MDRD) Af Amer 113 Est GFR (MDRD) Non-Af 93 BUN/Creatinine Ratio 15.4 Glucose 122 H Calcium 9.4 Urine Color YELLOW Urine Clarity Clear Urine pH 5.0 Ur Specific [place] Part 1.025 Urine Protein 30 H Urine Glucose (UA) Normal Urine Ketones Negative Urine Occult Blood 50 H Urine Nitrite Negative Urine Bilirubin Negative Urine Urobilinogen Normal Ur Leukocyte Esterase 25 H Urine RBC 0-5 SEEN Urine WBC 0-5 SEEN Ur Squamous Epith Cells 0 SEEN Urine Bacteria 0 SEEN Urine Mucus 0 SEEN Radiography Diagnostic Testing: Clinical Impression(s) from Imaging Studies Abdomen/Pelvis CT 10/06/23 11:16 IMPRESSION: Bilateral renal stones. Stone in the urinary bladder. Mild right hydronephrosis. Hepatomegaly. No biliary dilatation. Electronically Signed: Seb Knox MD at 12:59 EDT , Discharge Plan Triage Chief Complaint: Flank Pain ED Provider: Bacilio Tinajero Dx/Rx/DC Orders Instructions: ED Kidney Stone with Pain Prescriptions: New hydrocodone-acetaminophen 5-325 mg tablet 1 tab PO Q6H PRN PRN (Reason: Pain) 3 Days Qty: 10 0RF ondansetron 4 mg tablet,disintegrating 4 mg PO Q8H PRN PRN (Reason: Nausea) Qty: 10 0RF No Action albuterol sulfate 1 INHALER inhaler 1 - 2 puff INHALATION Q4H PRN PRN (Reason: BREATHING) Primary Care Provider: Care Physician,No Primary Referrals: Dell Vicente MD [Med Staff - Active Staff] - 3-5 Days Care Physician,No Primary [Primary Care Provider] - Disposition Disposition: Home, Self Care
--- NOTE | 2023-10-06 11:16 | CT_ITS ---
STUDY: CT ABDOMEN AND PELVIS WITHOUT CONTRAST REASON FOR EXAM: Male, 33 years old. Right flank pain RADIATION DOSAGE (If Supplied By Facility): CTDIvol = ( 17.63 ) mGy, DLP = ( 889.70 ) mGycm TECHNIQUE: Transaxial images were obtained from the dome of the diaphragm to the symphysis pubis without oral contrast, and without intravenous contrast. Sagittal and coronal images were reconstructed. Individualized dose optimization techniques were used for this CT. COMPARISON: November 08, 2020 FINDINGS: The visualized lung bases are unremarkable. The visualized portions of the heart are within normal limits. There is hepatomegaly with diffuse hepatic enlargement. Normal gallbladder and extrahepatic biliary system. Normal spleen. Normal pancreas. Normal bilateral adrenal glands. There are 2 stones measuring 0.2 cm at the lower pole of the right kidney. There is mild right hydronephrosis with perinephric stranding. There is 0.2 cm stone at the lower pole of the left kidney. Normal visualized stomach. Normal small intestine. Normal colon. The appendix is visualized and appears normal. Normal abdominal aorta. Normal inferior vena cava. Normal retroperitoneum. There is a 0.2 cm stone in the urinary bladder. There is no free fluid in the abdomen or pelvis. There is a left-sided inguinal hernia containing adipose tissue. Normal osseous structures. CT/Abdomen/Pelvis without Cont IMPRESSION: Bilateral renal stones. Stone in the urinary bladder. Mild right hydronephrosis. Hepatomegaly. No biliary dilatation. Electronically Signed: Seb Knox MD at 12:59 EDT ,
[2023-10-06 11:23] LABS: Absolute Lymphocyte Count 1.79 X10^3/uL (0.83-4.51); Absolute Neutrophil Count 2.7 X10^3/uL (2.0-7.7); Basophil# 0.02 X10^3/uL; Basophil% 0.4 % (0-1); Eosinophil# 0.37 X10^3/uL; Hematocrit 49.4 % (40-54); Hemoglobin 15.8 g/dL (13.0-16.5); Lymphocyte # 1.79 X10^3/ul (0.83-4.51); Lymphocyte % 33.8 % (19-41); Mean Corpuscular Hgb 26.7 pg (27.0-32.0); Mean Corpuscular Volume 83.6 fL (80-94); Mean Platelet Vol. 10.6 fl (6.2-12.0); Monocyte% 7.5 % (0-10); NRBC Flagged by Analyzer 0 % (0-5); Neutrophil # 2.72 X10^3/uL (2.7-7.7); Neutrophil % 51.3 % (47-70); POSITIVE MORPHOLOGY YES; Platelet Count 153 K/mm3 (150-450); RBC Distribution Width CV 14.1 % (11.6-14.6); RBC Distribution Width SD 43.3 fl (35.1-43.9); Red Blood Count 5.91 M/mm3 (4.6-6.2); White Blood Count 5.3 K/mm3 (4.4-11.0)
[2023-10-06] MEDS: Morphine 4 MG/ML Syringe IV (11:25)
[2023-10-06] MEDS: Ketorolac 15 MG/ML Vial IV (11:25)
[2023-10-06] MEDS: Ondansetron 4 MG/2 ML Vial IV (11:25)
[2023-10-06 11:31] VITALS: BP 133/98; PULSE 56; RESP 18; O2SAT 100
[2023-10-06 11:36] LABS: Anion Gap 5 (5-15); BUN 15 mg/dL (7-18); BUN/Creat Ratio 15.4 RATIO (10-20); Calcium,Total 9.4 mg/dL (8.5-10.1); Chloride 109 mmol/L (98-107); Creatinine, Serum 0.97 mg/dL (0.70-1.30); EST Glomerular Filtration Rate 93 mL/min (>60); Est Glom Filt Rate - Afr Amer 113 mL/min (>60); Estimated Creatinine Clearance 142.54 ml/min; Glucose 122 mg/dL (74-106); Potassium 3.5 mmol/L (3.5-5.1); Sodium Level 141 mmol/L (136-145)
[2023-10-06 12:04] VITALS: BP 137/88; PULSE 72; RESP 16; TEMP 36.2; O2SAT 99
[2023-10-06 13:10] VITALS: BP 138/72; PULSE 71; RESP 16; TEMP 36.1; O2SAT 98
[2023-10-06 13:48] VITALS: BP 127/63; PULSE 76; RESP 15; TEMP 36.3; O2SAT 100
== END 2023-10-06 13:49 | disposition home or self-care (01) ==
PROVIDERS: Emergency Provider Student in an Organized Health Care Education/Training Program; Visit Provider Student in an Organized Health Care Education/Training Program
DX: N13.2 Hydronephrosis with renal and ureteral calculous obstruction (principal); R11.2 Nausea with vomiting, unspecified; J45.909 Unspecified asthma, uncomplicated; Z79.899 Other long term (current) drug therapy; Z87.891 Personal history of nicotine dependence
CPT/HCPCS: 74176; 80048; 81001; 85025; 96374; 96375; 99283; A4216; J2405

== ENCOUNTER 2023-10-29 23:15 | Emergency (ER) | payer MEDICAID, SELFPAY ==
[2023-10-29 23:15] VITALS: BP 148/93; PULSE 100; RESP 16; TEMP 36.1; O2SAT 97; BMI 30.8
--- NOTE | 2023-10-30 01:24 | RAD_ITS ---
EXAM: XR LUMBOSACRAL SPINE, 2 OR 3 VIEWS CLINICAL INDICATION: pain TECHNIQUE: Frontal and lateral views of the lumbar spine and sacrum. COMPARISON: No relevant prior studies available. FINDINGS: VERTEBRAE: Straightening of the usual lordotic curvature, no subluxation. Preserved vertebral body height. No fracture. No spondylolisthesis. No significant facet arthropathy. Intact posterior-medial lower ribs. Intact transverse spinous processes. DISC SPACES: No acute findings. Disc spaces are maintained. GASTROINTESTINAL TRACT: Unremarkable as visualized. Included bowel gas pattern is non-obstructive. RAD/Lumbar Spine 2 or 3 Views IMPRESSION: Straightening of the usual lordotic curvature of the lower thoracic and lumbar spine on lateral view. No visible fracture or subluxation. Electronically Signed: Selma Chavez MD at 4:03 EDT ,
--- NOTE | 2023-10-30 01:25 | ED.VIS.LOWEX ---
HPI History of Present Illness Chief Complaint: Lower Extremity Injury Informant: patient Narrative Narrative: For about 1 week, patient has been having pain in his left hip, low back, down into his left lateral thigh and groin. Hurts to move and walk. Denies any injury woke up with the pain. Has been getting worse and is starting to limit his abilities to get around. Denies any fevers, chills, systemic symptoms. Denies any injuries. He works at [employer], so he is not doing exertional work or heavy lifting or anything repetitive like at a [employer]. 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 States he has never had this before. He does not have any pain below the knee but occasionally discomfort is radiating there [facility] Medical History History of humerus fracture Asthma Chronic neck and back pain Migraines Shoulder pain Community-acquired pneumonia Home Medications ?Medication ?Instructions ?Recorded ?Last Taken ?Type albuterol sulfate 90 mcg/actuation 1 - 2 puff inhalation Q4H PRN PRN 10/28/18 Unknown History aerosol inhaler BREATHING ondansetron 4 mg disintegrating 4 mg PO Q8H PRN PRN Nausea #10 tabs 10/06/23 Unknown Rx tablet hydrocodone-acetaminophen 5-325mg 1 tab PO Q6H PRN PRN Pain 3 days 10/30/23 Unknown Rx 5mg-325mg #10 TABLETS prednisone 20 mg tablet 40 mg (2 x 20 mg) PO DAILY #12 10/30/23 Unknown Rx TABLETS Allergy/AdvReac Type Severity Reaction Status Date / Time No Known Allergies Allergy Verified 10/29/23 23:16 Social History Smoking Status: Current every day smoker tobacco type: cigarettes and e-cigarettes alcohol intake: never ROS ROS ED Constitutional Constitutional ED: Denies chills or fever(s) Gastrointestinal Gastrointestinal: Denies abdominal pain, constipation, fecal incontinence, nausea or vomiting Genitourinary Genitourinary ED: Reports other Details: no urinary retention ; Denies abdominal discomfort or urinary incontinence Musculoskeletal Musculoskeletal: Reports back pain and extremity pain; Denies neck pain Integumentary Denies Abrasions, rash or wounds Neurologic Neurologic: Denies paresthesias or weakness EXAM Physical Exam Const Vital Signs: 10/29/23 23:15 10/30/23 01:27 10/30/23 03:27 Temperature 97 F L Temperature Source Temporal Pulse Rate 100 66 88 Respiratory Rate 16 16 16 Blood Pressure 148/93 H 147/80 H 134/67 H Blood Pressure Mean 111 102 89 Pulse Ox 97 99 95 Oxygen Delivery Method Room Air Room Air Positive well nourished and well developed General Appearance ED: well developed and NAD HEENT Negative for trauma or tenderness Eyes PERRL and EOMs intact bilaterally Neck full ROM and supple GI normal to inspection, nondistended, normoactive bowel sounds, soft to palpation and non-tender Back/Spine normal ROM and normal to inspection Lumbar Spine / Lower Back: ROM limited, paraspinal muscle tenderness and straight leg raise negative bilaterally; Negative for lumbar spinal tenderness Extremity normal to inspection, full ROM and no pedal edema Extremity Narrative: Left lower extremity: There is pain with internal and external rotation of the hip joint with logroll, I am able to do it fully, but at extremes he winces in pain holding his groin. Same with flexion of the thigh, he allows me to go up to 45 degrees but states that it really hurts. With the knee extended, same. All compartments soft and nondistended. Inspection is normal. He is tender to greater trochanter, but he is also tender all the way back from here throughout the upper buttock and pelvic brim to the lumbar spine where he is also tender, Some areas more than others. No swelling. No abscess or skin lesions. Neurovascular intact distally. Straight leg raises are negative causing no radicular symptoms distally. Neuro oriented x3, no focal motor deficits and no sensory deficits noted Sensorium / Orientation: alert Motor Exam: strength 5/5 throughout and clonus absent Deep Tendon Reflexes: Rt Patellar (L4): 2+, Lt Patellar (L4): 2+, Rt Ankle (S1): 2+ and Lt Ankle (S1): 2+ Deep Tendon Reflexes Back: Rt Patellar (L4): 2+, Lt Patellar (L4): 2+, Rt Ankle (S1): 2+ and Lt Ankle (S1): 2+ Plantar Reflex: Downgoing: bilateral Psych mental status grossly normal and thought process normal Skin no wounds Rashes: no rashes MDM MDM MDM Narrative Medical decision making narrative: Differential includes some type of synovitis, but is not examining like a septic arthritis or gout in the hip joint. Greater trochanteric bursitis could cause him to have significant tenderness at the greater trochanter like he does, but however he does have tenderness in multiple other areas so it cannot be just isolated bursitis. He could certainly all be musculoskeletal strain but he denies any injury. Radiculopathy unlikely since he does not have any symptoms radiating down below the knee. His history and exam really do not fit an obvious etiology so I did labs, with ESR and CRP, and x-rays of the left hip and the LS spine. In the meantime he was also given IV Toradol. He states this did not help at all. However, he is able to move his hip around and change positions in bed without any difficulty or apparent major discomfort. In discussing more of this with him since his exam is abnormal and so many surrounding areas at the same time, he indicates that it seemed to start around the area where his greater trochanter is. Luckily, his blood work and x-rays are very reassuring. White blood count, ESR, CRP all normal/negative. This rules out septic arthritis, and also argues against inflammatory synovitis, discitis which I was less inclined to consider here. If this is greater trochanteric bursitis, may respond to prednisone some prescribing him that and give him something else for pain and prescribing him a few [place] and advised to follow-up with orthopedics if it does not resolve. He is comfortable with that plan. Lab Data Attestation: I reviewed the patient's lab results. Labs: Laboratory Results - last 24 hr 10/30/23 01:40 WBC 6.1 RBC 5.62 Hgb 15.1 Hct 47.3 MCV 84.2 MCH 26.9 L MCHC 31.9 L RDW Std Deviation 42.9 RDW Coeff of Edson 13.8 Plt Count 158 MPV 11.0 Immature Gran % (Auto) 0.200 Neut % (Auto) 45.7 L Lymph % (Auto) 40.7 [place] % (Auto) 7.0 Eos % (Auto) 5.6 H Baso % (Auto) 0.8 Absolute Neuts (auto) 2.8 Absolute Lymphs (auto) 2.48 Nucleated RBC % 0 ESR 16 Sodium 138 Potassium 4.2 Chloride 107 Carbon Dioxide 27.0 Anion Gap 4 L BUN 13 Creatinine 0.98 Estim Creat Clear Calc 138.19 Est GFR (MDRD) Af Amer 111 Est GFR (MDRD) Non-Af 92 BUN/Creatinine Ratio 13.2 Glucose 93 Calcium 8.9 Total Creatine Kinase 238 C-React Prot Ext Range < 2.90 Radiography Diagnostic Testing: Clinical Impression(s) from Imaging Studies Lumbar Spine X-Ray 10/30/23 01:24 IMPRESSION: Straightening of the usual lordotic curvature of the lower thoracic and lumbar spine on lateral view. No visible fracture or subluxation. Electronically Signed: Selma Chavez MD at 4:03 EDT , Hip/Pelvis X-Ray 10/30/23 02:20 IMPRESSION: No evidence of displaced pelvic or hip fracture. Electronically Signed: Selma Chavez MD at 3:32 EDT , Lumbosacral spine x-rays 3 views of mitral rotation negative for any acute. Three-view x-ray series of the left hip and pelvis negative for any acute on my interpretation. Discharge Plan Triage Chief Complaint: Lower Extremity Injury ED Provider: Seb Valdez Dx/Rx/DC Orders Clinical Impression: Acute pain of left hip, Acute left-sided low back pain Instructions: Understanding Trochanteric Bursitis Prescriptions: New prednisone 20 mg tablet 40 mg PO DAILY Qty: 12 0RF Continued hydrocodone-acetaminophen 5-325 mg tablet 1 tab PO Q6H PRN PRN (Reason: Pain) 3 Days Qty: 10 0RF No Action albuterol sulfate 1 INHALER inhaler 1 - 2 puff INHALATION Q4H PRN PRN (Reason: BREATHING) ondansetron 4 mg tablet,disintegrating 4 mg PO Q8H PRN PRN (Reason: Nausea) Qty: 10 0RF Primary Care Provider: Care Physician,No Primary Referrals: Alin Drew DO [Med Staff - Active Staff] - 1 Week if not improving Care Physician,No Primary [Primary Care Provider] - Print Language: Armenian Disposition Disposition: Home, Self Care
[2023-10-30 01:27] VITALS: BP 147/80; PULSE 66; RESP 16; O2SAT 99
[2023-10-30 01:50] LABS: Erythrocyte Sedimentation Rate 16 mm/hr (0-20)
[2023-10-30 01:52] LABS: Absolute Lymphocyte Count 2.48 X10^3/uL (0.83-4.51); Absolute Neutrophil Count 2.8 X10^3/uL (2.0-7.7); Basophil# 0.05 X10^3/uL; Basophil% 0.8 % (0-1); Eosinophil# 0.34 X10^3/uL; Eosinophils% 5.6 % (0-5); Hematocrit 47.3 % (40-54); Hemoglobin 15.1 g/dL (13.0-16.5); Lymphocyte # 2.48 X10^3/ul (0.83-4.51); Lymphocyte % 40.7 % (19-41); Mean Corp Hgb Conc 31.9 g/dL (32-36); Mean Corpuscular Hgb 26.9 pg (27.0-32.0); Mean Corpuscular Volume 84.2 fL (80-94); Monocyte# 0.43 X10^3/uL; NRBC Flagged by Analyzer 0 % (0-5); Neutrophil # 2.79 X10^3/uL (2.7-7.7); Neutrophil % 45.7 % (47-70); Platelet Count 158 K/mm3 (150-450); RBC Distribution Width CV 13.8 % (11.6-14.6); RBC Distribution Width SD 42.9 fl (35.1-43.9); Red Blood Count 5.62 M/mm3 (4.6-6.2); White Blood Count 6.1 K/mm3 (4.4-11.0)
[2023-10-30] MEDS: Ketorolac 30 MG/ML Syringe IV (02:00)
--- NOTE | 2023-10-30 02:20 | RAD_ITS ---
EXAM: XR LEFT HIP WITH PELVIS WHEN PERFORMED, 3 VIEWS CLINICAL INDICATION: pain TECHNIQUE: Two views of the left hip and AP pelvis. COMPARISON: No relevant prior studies available. FINDINGS: BONES/JOINTS: Unremarkable. No displaced fracture. No destructive or sclerotic lesions. Note that overlapping bowel shadows may however obscure fine detail. Sacroiliac joint is unremarkable. No widening of the pubic symphysis. The articular structures are unremarkable. SOFT TISSUES: Unremarkable. No soft tissue swelling or gas. RAD/HIP, UNI W/ Pelvis 2-3 Views IMPRESSION: No evidence of displaced pelvic or hip fracture. Electronically Signed: Selma Chavez MD at 3:32 EDT ,
[2023-10-30 02:24] LABS: Anion Gap 4 (5-15); BUN 13 mg/dL (7-18); BUN/Creat Ratio 13.2 RATIO (10-20); CPK Total, Creatine Kinase 238 U/L (39-308); CRP < 2.90 mg/L (0.0-3.0); Calcium,Total 8.9 mg/dL (8.5-10.1); Chloride 107 mmol/L (98-107); Creatinine, Serum 0.98 mg/dL (0.70-1.30); EST Glomerular Filtration Rate 92 mL/min (>60); Est Glom Filt Rate - Afr Amer 111 mL/min (>60); Estimated Creatinine Clearance 138.19 ml/min; Glucose 93 mg/dL (74-106); Potassium 4.2 mmol/L (3.5-5.1); Sodium Level 138 mmol/L (136-145)
[2023-10-30 03:27] VITALS: BP 134/67; PULSE 88; RESP 16; O2SAT 95
[2023-10-30] MEDS: predniSONE 20 MG Tablet 40 MG PO (04:29)
[2023-10-30] MEDS: HYDROcodone Bitartrate/Apap 5/325 Tablet PO (04:29)
[2023-10-30 04:34] VITALS: BP 129/87; PULSE 81; RESP 16; TEMP 36.3; O2SAT 99
== END 2023-10-30 04:34 | disposition home or self-care (01) ==
PROVIDERS: Emergency Provider Emergency Medicine; Visit Provider Emergency Medicine
DX: M25.552 Pain in left hip (principal); M54.50 Low back pain, unspecified; J45.909 Unspecified asthma, uncomplicated; F17.210 Nicotine dependence, cigarettes, uncomplicated; F17.290 Nicotine dependence, other tobacco product, uncomplicated; Z79.899 Other long term (current) drug therapy
CPT/HCPCS: 72100; 73502; 80048; 82550; 85025; 85652; 86140; 96374; 99283; A4216

== ENCOUNTER 2023-11-04 15:09 | Emergency (ER) | payer MEDICAID, SELFPAY ==
[2023-11-04 15:10] VITALS: BP 146/91; PULSE 92; RESP 17; TEMP 36; O2SAT 97
--- NOTE | 2023-11-04 17:04 | CT_ITS ---
INDICATION: lower back /left flank pain EXAMINATION: CT ABDOMEN AND PELVIS WITH CONTRAST - CT Abdomen And Pelvis W/ Contrast Injection TECHNIQUE: Helically acquired images were obtained of the abdomen and pelvis following IV contrast. A radiation dose optimization technique was used for this scan. IV Contrast dosage and agent: 100 mL Isovue-370 Oral contrast: None. COMPARISON: October 06, 2023. FINDINGS: LOWER CHEST: Lung bases are clear. No cardiomegaly or pericardial effusion. LIVER: Homogeneous. No focal mass. GALLBLADDER AND BILIARY TREE: No calcified gallstones. No gallbladder distension or wall edema. No intra- or extrahepatic biliary ductal dilation. PANCREAS: No focal cystic or solid mass. SPLEEN: Normal size without focal cystic or solid mass. ADRENAL GLANDS: No nodules. KIDNEYS AND URETERS: Punctate right renal lower pole stones. No hydronephrosis or perinephric inflammation. . PERITONEUM: No ascites or free air. No other fluid collection. BOWEL: No evidence of acute appendicitis. No stomach or bowel distension. No focal inflammatory change. LYMPH NODES: No enlarged mesenteric or retroperitoneal lymph nodes. VESSELS: Aorta is non-dilated. URINARY BLADDER: Unremarkable. REPRODUCTIVE ORGANS: No pelvic masses. ABDOMINAL WALL: Small fat-containing umbilical and left inguinal hernia without inflammation. BONES: No lytic or blastic abnormality. CT/Abdomen/Pelvis W IV Cont ONLY IMPRESSION: Nonobstructive right nephrolithiasis. No evidence of current ureteral stone. No specific finding to explain left flank pain. Small fat-containing umbilical and left inguinal hernia without inflammation. Electronically Signed: Hernando Mckeon MD at 19:56 EDT ,
--- NOTE | 2023-11-04 17:05 | EDS_ITS ---
HPI History of Present Illness Chief Complaint: Lower Extremity Injury Narrative Narrative: 33 year old male presenting with lower back pain and left hip pain. He has a history of kidney stones but states its not the same. He states he was seen at [facility] and states he was diagnosed with bursitis of the left hip and discharged home with [facility]. He states he was unable to follow up with anyone because he has been busy working at [employer]. He states that his boss expected him to work today even thought the patient told him he was in pain. He states the he fell on the way into the emergency room due to pain in the left hip and back. No loss of bladder or bladder control. No saddle anesthesia. patient did not land on his back. [facility] Medical History History of humerus fracture Asthma Chronic neck and back pain Migraines Shoulder pain Community-acquired pneumonia Home Medications ?Medication ?Instructions ?Recorded ?Last Taken ?Type albuterol sulfate 90 mcg/actuation 1 - 2 puff inhalation Q4H PRN PRN 10/28/18 Unknown History aerosol inhaler BREATHING ondansetron 4 mg disintegrating 4 mg PO Q8H PRN PRN Nausea #10 tabs 10/06/23 Unknown Rx tablet hydrocodone-acetaminophen 5-325mg 1 tab PO Q6H PRN PRN Pain 3 days 10/30/23 Unknown Rx 5mg-325mg #10 TABLETS prednisone 20 mg tablet 40 mg (2 x 20 mg) PO DAILY #12 10/30/23 Unknown Rx TABLETS Allergy/AdvReac Type Severity Reaction Status Date / Time No Known Allergies Allergy Verified 10/29/23 23:16 Social History Smoking Status: Current every day smoker tobacco type: cigarettes and e- cigarettes alcohol intake: never ROS ROS ED Constitutional Constitutional ED: Denies chills, fever(s) or sweats Eyes Eyes: Denies blurry vision or change in vision ENT ENT ED: Denies ear pain or sore throat Cardiovascular Cardiovascular: Denies chest pain, palpitations or racing heartbeat Respiratory/Chest Respiratory/Chest: Denies cough, dyspnea or sputum Gastrointestinal Gastrointestinal: Denies abdominal pain, constipation, diarrhea, nausea or vomiting Genitourinary Genitourinary ED: Denies dysuria, hematuria or urinary frequency Musculoskeletal Musculoskeletal: Reports back pain and other Details: left hip pain ; Denies arthralgias, myalgias or neck pain Integumentary Denies abscess, Abrasions or rash Neurologic Neurologic: Denies headache(s), paresthesias or weakness Psychiatric Psychiatric: Denies anxiety, depression, suicidal ideation or suicidal thoughts Endocrine Endocrinology: Denies polydipsia or polyuria EXAM Physical Exam Const Vital Signs: 11/04/23 15:10 Temperature 96.8 F L Temperature Source Oral Pulse Rate 92 Respiratory Rate 17 Blood Pressure 146/91 H Blood Pressure Mean 109 Pulse Ox 97 Oxygen Delivery Method Room Air Positive well nourished HEENT Reports moist mucous membranes normocephalic and atraumatic Chest Wall inspection of chest normal Resp normal respiratory effort Auscultation: Negative for rales or rhonchi Cardio regular rate and regular rhythm GI non-tender Back/Spine no CVA tenderness Back/Spine Narrative: Tenderness to palpation left lumbar paraspinal musculature. Also noted pain in the left gluteal region to a lesser degree. Flexion of the left hip passively does not exacerbate the pain. extension of the hip passively does. patient able to roll over in the bed and sit up without difficulty. no midline lumbar spinal tenderness, deformity, of step-off Extremity normal to inspection and full ROM Neuro oriented x3 and CN's II-XII intact bilaterally Sensorium / Orientation: alert Motor Exam: strength 5/5 throughout Psych mental status grossly normal Skin no wounds MDM MDM MDM Narrative Medical decision making narrative: patient presenting with back pain. His exam is positive for pain with passive extension, but not with flexion. I don't fell he has septic hip, fracture, dislocation, cauda equina syndrome. Will medicate the patient with norflex and toradol. will obtain a non contrast ct of the abb/pelvis to rule kidney stone and to get a better image of the lumbar spine. Discharge Plan Triage Chief Complaint: Lower Extremity Injury ED Provider: Bacilio Tinajero Dx/Rx/DC Orders Prescriptions: No Action albuterol sulfate 1 INHALER inhaler 1 - 2 puff INHALATION Q4H PRN PRN (Reason: BREATHING) ondansetron 4 mg tablet,disintegrating 4 mg PO Q8H PRN PRN (Reason: Nausea) Qty: 10 0RF prednisone 20 mg tablet 40 mg PO DAILY Qty: 12 0RF hydrocodone-acetaminophen 5-325 mg tablet 1 tab PO Q6H PRN PRN (Reason: Pain) 3 Days Qty: 10 0RF Primary Care Provider: Care Physician,No Primary Referrals: Care Physician,No Primary [Primary Care Provider] - Print Language: Macanese
[2023-11-04] MEDS: Ketorolac 15 MG/ML Vial IM (17:10)
[2023-11-04] MEDS: Orphenadrine 60 MG/2 ML Ampul IM (17:10)
[2023-11-04 20:13] VITALS: BP 140/88; PULSE 78; RESP 16; TEMP 36.6; O2SAT 97
== END 2023-11-04 20:35 | disposition home or self-care (01) ==
PROVIDERS: Emergency Provider Student in an Organized Health Care Education/Training Program; Visit Provider Student in an Organized Health Care Education/Training Program
DX: M54.50 Low back pain, unspecified (principal); M25.552 Pain in left hip; J45.909 Unspecified asthma, uncomplicated; G89.29 Other chronic pain; F17.210 Nicotine dependence, cigarettes, uncomplicated; F17.290 Nicotine dependence, other tobacco product, uncomplicated; Z79.899 Other long term (current) drug therapy
CPT/HCPCS: 74177; 96372; 99284; Q9967

== ENCOUNTER → 2023-11-21 | Outpatient (CLI) | payer MEDICAID, SELFPAY ==
--- NOTE | 2023-11-21 15:21 | MRI_ITS ---
STUDY: MRI LUMBAR SPINE WITHOUT CONTRAST REASON FOR EXAM: Male, 33 years old. pain; radiculopathy lt side TECHNIQUE: Standardized fat and water weighted pulse sequences were obtained in the sagittal and axial planes. COMPARISON: Lumbar spine series November 07, 2023 FINDINGS: T12-L1: Normal endplates. Normal disc height, hydration and morphology. Normal bilateral facet joints. Normal central canal and bilateral lateral recesses. Normal bilateral intervertebral neural foramina. Normal lumbar lordosis. There is no substantial scoliosis. Normal conus medullaris that terminates at T12-L1 L1-2: Normal endplates. Normal disc height, hydration and morphology. Normal bilateral facet joints. Normal central canal and bilateral lateral recesses. Normal bilateral intervertebral neural foramina. L2-3: Normal endplates. Normal disc height, hydration and morphology. Normal bilateral facet joints. Normal central canal and bilateral lateral recesses. Normal bilateral intervertebral neural foramina. L3-4: Normal endplates. Normal disc height, hydration and morphology. Normal bilateral facet joints. Normal central canal and bilateral lateral recesses. Normal bilateral intervertebral neural foramina. L4-5: Normal endplates. Normal disc height, hydration and minimal annular bulge with small left foraminal disc protrusion.. Normal bilateral facet joints. Normal central canal and bilateral lateral recesses. Minor right neural foraminal encroachment and moderate stenosis on the left exaggerated by shortened pedicles. L5-S1: Normal endplates. Normal disc height, disc space and mild annular bulge with moderate size broad-based central/left paracentral disc extrusion with subtle inferior migration of disc fragment displacing and compressing the descending left S1 nerve root.. Mild facet arthropathy. Mild narrowing the central canal and left lateral recess moderate bilateral neural foraminal encroachment. Normal visualized sacral ala. Normal visualized paraspinous soft tissue structures. No significant change since prior exam given inherent differences in imaging techniques MRI/Spine Lumbar (Routine) IMPRESSION: No acute fracture or other significant bony pathology.. Spinal stenosis at L4-5 and more severe spinal stenosis at L5-S1 worse on the left secondary to disc disease and minor facet arthropathy Findings as above Electronically Signed: Donnell Stokes MD at 17:15 EDT Reading Location ID and State: [address] [place] [address] Tel , Service support ,
== END | disposition home or self-care (01) ==
LOC: MRI 15:16
PROVIDERS: Referring Provider Orthopaedic Surgery Orthopaedic Surgery of the Spine; Visit Provider Orthopaedic Surgery Orthopaedic Surgery of the Spine
DX: M54.16 Radiculopathy, lumbar region (principal)
CPT/HCPCS: 72148

== ENCOUNTER 2024-01-02 12:00 | Outpatient (RCR) | payer MEDICAID, SELFPAY | END 2024-01-02 19:00 | disposition home or self-care (01) | LOC: PT 12:00 | PROVIDERS: Referring Provider Orthopaedic Surgery Orthopaedic Surgery of the Spine; Visit Provider Orthopaedic Surgery Orthopaedic Surgery of the Spine | DX: M54.16 Radiculopathy, lumbar region (principal) | CPT/HCPCS: 97014; 97035; 97110; 97161; 97530; G0283 ==

== ENCOUNTER → 2024-11-06 | Outpatient (CLI) | payer MEDICAID, SELFPAY ==
--- NOTE | 2024-11-06 17:10 | RAD_ITS ---
PROCEDURE: CHEST PA AND LATERAL 11/06/2024 REASON FOR EXAM: PERSISTENT COUGH TECHNIQUE: Frontal and lateral views of the chest. COMPARISON: Chest radiograph dated 07/15/2020 FINDINGS: Hardware: None Heart: The heart size is normal. Mediastinum: The mediastinal contour is unremarkable. Lungs: The lungs are clear. Bones: Status post ORIF of the left humerus. RAD/Chest PA and Lateral IMPRESSION: NO ACUTE FINDINGS. Reading Location: [facility]
== END | disposition home or self-care (01) ==
PROVIDERS: Referring Provider Physician Assistant Surgical; Visit Provider Physician Assistant Surgical
DX: J45.901 Unspecified asthma with (acute) exacerbation (principal); R05.3 Chronic cough
CPT/HCPCS: 71046

== ENCOUNTER 2024-11-09 17:41 | Emergency (ER) | payer MEDICAID, SELFPAY ==
[2024-11-09] VITALS (8 sets, daily range): BP systolic 133–155; BP diastolic 80–91; PULSE 75–114; RESP 16–21; TEMP 36.4; O2SAT 98–100; BMI 30.2
[2024-11-09] MEDS: Ipratropium/Albuterol Sulfate 3 ML AMPUL.NEB INHALATION (20:03)
[2024-11-09] MEDS: Albuterol 2.5 MG/3 ML VIAL.NEB. INHALATION (20:03)
--- NOTE | 2024-11-09 20:09 | EDS_ITS ---
HPI History of Present Illness Chief Complaint: Cold Sx Narrative Narrative: Chief complaint and HPI: Cough and cold-like symptoms. 34-year-old male with past medical history of asthma presents for evaluation of cough and cold-like symptoms. Onset of symptoms approximately 1 week. Triage note states 2 weeks however patient confirms about 1 week. Symptoms originally included fever, cough, congestion. Fever has resolved however cough and congestion has continued. Endorses wheezing which he has been taking his albuterol inhaler. Denies any abdominal pain, nausea, vomiting. States he has had mild diarrhea. Review of systems: See HPI Medications: As listed on the chart Allergies: As listed on the chart PFSH: Per chart Vital signs: As listed on the chart. Reviewed. Physical exam: Gen: A&O x3, NAD Head: Normocephalic, atraumatic Eyes: No sclera icterus, conjunctiva clear ENT: Moist mucous membranes Neck: Trachea midline, No JVD CV: RRR, no murmurs, no peripheral edema Resp: Lungs CTA BL but with expiratory wheezing, + cough GI: Abd soft, non-distended, non-tender, no r/r/g Musc: Full ROM, no deformity Skin: Warm, dry Neuro: Alert, oriented, grossly intact, sensation intact Psych: Cooperative, appropriate mood and affect [facility] Medical History History of humerus fracture Asthma Chronic neck and back pain Migraines Shoulder pain Community-acquired pneumonia Home Medications ?Medication ?Instructions ?Recorded ?Last Taken ?Type albuterol sulfate 90 mcg/actuation 1 - 2 puff inhalati on Q4H PRN PRN 11/06/24 Unknown History aerosol inhaler BREATHING albuterol sulfate 90 mcg/actuation 2 puff inhalation Q 4-6H PRN 11/06/24 Unknown Rx aerosol inhaler (Ventolin HFA) shortness of breath or wheezing #8.5 grams azithromycin 250 mg tablet See Rx Instructions PO .COM PLEX #6 11/06/24 Unknown Rx tabs benzonatate 100 mg capsule 100 mg PO TID PRN cough 5 d ays #15 11/09/24 Unknown Rx caps prednisone 20 mg tablet 40 mg (2 x 20 mg) PO DAILY 5 days 11/09/24 Unknown Rx #10 tabs Allergy/AdvReac Type Severity Reaction Status Date / Time No Known Allergies Allergy Verified 11/06/24 17:33 Family History no significant family his Social History Smoking Status: Current every day smoker tobacco type: e-cigarettes alcohol intake: never substance use type: other details: smokes THC EXAM Physical Exam Const Vital Signs: 11/09/24 17:41 11/09/24 17:46 11/09/24 18:46 Temperature 97.5 F L 97.5 F L 97.5 F L Temperature Source Temporal Oral Oral Pulse Rate 78 75 79 Respiratory Rate 20 H 21 H 16 Blood Pressure 155/89 H 133/86 H 135/88 H Blood Pressure Mean 111 101 103 Pulse Ox 100 98 99 Oxygen Delivery Method Room Air Room Air Room Air 11/09/24 19:00 11/09/24 20:00 11/09/24 20:04 Temperature 97.5 F L 97.5 F L Temperature Source Oral Oral Pulse Rate 79 89 114 H Respiratory Rate 16 20 H 18 Blood Pressure 135/88 H 138/80 H Blood Pressure Mean 103 99 Pulse Ox 99 98 Oxygen Delivery Method Room Air Room Air 11/09/24 21:00 11/09/24 21:32 Temperature 97.5 F L 97.5 F L Temperature Source Oral Pulse Rate 82 82 Respiratory Rate 18 17 Blood Pressure 145/91 H 146/89 H Blood Pressure Mean 109 108 Pulse Ox 99 99 Oxygen Delivery Method Room Air MDM MDM MDM Narrative Medical decision making narrative: 34-year-old male with past medical history of asthma presents for evaluation of cough and cold-like symptoms onset of symptoms approximately 1 week. On presentation, patient is in no acute distress. Vitals show hypertension without fever or hypoxia on room air. Patient's lungs are clear to auscultation except for expiratory wheezing. He does have a cough. Differential diagnosis includes but is not limited to asthma exacerbation, viral syndrome, bronchitis, pneumonia, electrolyte abnormality. Patient offered COVID, flu, RSV testing but declined. I do think this is appropriate as it will not change my management. Laboratory workup ordered including chest x-ray. DuoNeb and albuterol ordered for wheezing. P.o. prednisone ordered. CBC without leukocytosis or anemia. BMP unremarkable. Chest x-ray personally reviewed and interpreted by me, ED physician. No pneumonia, effusion, cardiomegaly, pneumothorax. Radiology and agreement. On reevaluation, patient's wheezing has improved. Patient was updated on his results. Suspect his symptoms are secondary to asthma exacerbation secondary to viral syndrome. Follow-up with PCP. He confirmed understand the plan. Patient is able to discharge home. Return to cautions explained. Patient given a prescription for prednisone and Tessalon Perles. Impression: 1. Asthma exacerbation 2. Viral syndrome Lab Data Labs: Laboratory Results - last 24 hr 11/09/24 11/09/24 11/09/24 20:10 20:10 20:40 WBC Cancelled 4.9 Corrected WBC Cancelled RBC Cancelled 5.60 Hgb Cancelled 15.2 Hct Cancelled 47.0 MCV Cancelled 83.9 MCH Cancelled 27.1 MCHC Cancelled 32.3 RDW Std Deviation Cancelled 41.2 RDW Coeff of Edson Cancelled 13.4 Plt Count Cancelled 160 MPV Cancelled 10.5 Immature Gran % (Auto) Cancelled 0.000 Neut % (Auto) Cancelled 51.0 Lymph % (Auto) Cancelled 42.5 H [place] % (Auto) Cancelled 5.9 Eos % (Auto) Cancelled 0.4 Baso % (Auto) Cancelled 0.2 Absolute Neuts (auto) Cancelled 2.5 Absolute Lymphs (auto) Cancelled 2.09 Total Counted Cancelled Neutrophils % (Manual) Cancelled Band Neutrophils % Cancelled Lymphocytes % (Manual) Cancelled Monocytes % (Manual) Cancelled Eosinophils % (Manual) Cancelled Basophils % (Manual) Cancelled Metamyelocytes % Cancelled Myelocytes % Cancelled Promyelocytes % Cancelled Blast Cells % Cancelled Plasma Cell % (Manual) Cancelled Other Cells % Cancelled Nucleated RBC % Cancelled 0 Nucleated RBCs/100 WBC Cancelled Differential Comment Cancelled Diff Path Review Cancelled Hypersegmented Neuts Cancelled Atypical Lymphocytes Cancelled Reactive Lymphocytes Cancelled Smudge Cells Cancelled Toxic Granulation Cancelled Toxic Vacuolation Cancelled Dohle Bodies Cancelled [place] Rods Cancelled Platelet Estimate Cancelled Plt Morphology Comment Cancelled RBC Morphology Cancelled Cancelled Polychromasia Cancelled Hypochromasia Cancelled Basophilic Stippling Cancelled Anisocytosis Cancelled Microcytosis Cancelled Macrocytosis Cancelled Spherocytes Cancelled Sickle Cells Cancelled Target Cells Cancelled Tear Drop Cells Cancelled Ovalocytes Cancelled Stomatocytes Cancelled [place] Bodies Cancelled [place] Cells Cancelled Bite Cells Cancelled Crenated Cell Cancelled Acanthocytes (Spur) Cancelled Rouleaux Cancelled Schistocytes Cancelled Sodium 138 Potassium 4.1 Chloride 103 Carbon Dioxide 23.4 Anion Gap 12 BUN 13 Creatinine 0.80 Estim Creat Clear Calc 166.33 Est GFR (MDRD) Non-Af 118 BUN/Creatinine Ratio 15.8 Glucose 89 Calcium 9.2 Radiography Diagnostic Testing: Clinical Impression(s) from Imaging Studies Chest X-Ray 11/09/24 20:20 IMPRESSION: No focal consolidations. Reading Location: [facility] Discharge Plan Triage Chief Complaint: Cold Sx ED Provider: Arya Nick Dx/Rx/DC Orders Clinical Impression: Asthma exacerbation, Viral syndrome Instructions: ED Asthma, Acute (Adult), ED Viral Syndrome (Adult) Prescriptions: New prednisone 20 mg tablet 40 mg PO DAILY 5 Days Qty: 10 0RF benzonatate 100 mg capsule 100 mg PO TID PRN (Reason: cough) 5 Days Qty: 15 0RF Discontinued methylprednisolone [Medrol ([place])] 4 mg tablets,dose pack 4 mg PO PER PKG DIR 6 Days Qty: 21 0RF No Action azithromycin 250 mg tablet See Rx Instructions PO .COMPLEX Qty: 6 0RF Rx Instructions: take 500 mg today (day 1), then 250 mg for 4 days (days 2-5) PO albuterol sulfate 90 mcg/actuation HFA aerosol inhaler 1 - 2 puff INHALATION Q4H PRN PRN (Reason: BREATHING) albuterol sulfate [Ventolin HFA] 90 mcg/actuation HFA aerosol inhaler 2 puff inhalation Q4-6H PRN (Reason: shortness of breath or wheezing) Qty: 8.5 0RF Primary Care Provider: Care Physician,No Primary Referrals: Bunny Elias MD [Med Staff - Active Staff] - 3-5 Days Activity Restrictions/Additional Instructions: Follow-up with primary care physician. If you do not have a primary care physician. Follow-up the one provided above. Continue albuterol inhaler as needed. Return back to the ED if symptoms change or worsen. You received prednisone here in the emergency department. Start your prednisone tomorrow. Print Language: Montserratian Disposition Disposition: Home, Self Care Discharge Date/Time: 11/09/24 21:44
--- NOTE | 2024-11-09 20:20 | RAD_ITS ---
PROCEDURE: CHEST PA AND LATERAL 11/09/2024 REASON FOR EXAM: COUGH TECHNIQUE: Frontal and lateral views of the chest. COMPARISON: 11/06/2024 FINDINGS: No focal consolidations. No pleural effusion or pneumothorax. Cardiac silhouette is unremarkable. No acute fractures. RAD/Chest PA and Lateral IMPRESSION: No focal consolidations. Reading Location: [id number]
[2024-11-09] MEDS: predniSONE 20 MG Tablet 60 MG PO (20:32)
[2024-11-09 20:44] LABS: Anion Gap 12 (5-15); BUN 13 mg/dL (4-19); BUN/Creat Ratio 15.8 RATIO (10-20); Calcium,Total 9.2 mg/dL (7.6-11.0); Carbon Dioxide 23.4 mmol/L (21.0-32.0); Chloride 103 mmol/L (98-108); EST Glomerular Filtration Rate 118 (>60); Estimated Creatinine Clearance 166.33 ml/min (50-250); Glucose 89 mg/dL (70-99); Potassium 4.1 mmol/L (3.3-5.1); Sodium Level 138 mmol/L (133-145)
[2024-11-09 20:54] LABS: Absolute Lymphocyte Count 2.09 X10^3/uL (0.83-4.51); Absolute Neutrophil Count 2.5 X10^3/uL (2.0-7.7); Basophil# 0.01 X10^3/uL; Basophil% 0.2 % (0-1); Eosinophil# 0.02 X10^3/uL; Eosinophils% 0.4 % (0-5); Hemoglobin 15.2 g/dL (13.0-16.5); Lymphocyte # 2.09 X10^3/ul (0.83-4.51); Lymphocyte % 42.5 % (19-41); Mean Corp Hgb Conc 32.3 g/dL (32-36); Mean Corpuscular Hgb 27.1 pg (27.0-32.0); Mean Corpuscular Volume 83.9 fL (80-94); Mean Platelet Vol. 10.5 fl (6.2-12.0); Monocyte# 0.29 X10^3/uL; Monocyte% 5.9 % (0-10); NRBC Flagged by Analyzer 0 % (0-5); Neutrophil # 2.51 X10^3/uL (2.7-7.7); Platelet Count 160 K/mm3 (150-450); RBC Distribution Width CV 13.4 % (11.6-14.6); RBC Distribution Width SD 41.2 fl (35.1-43.9); White Blood Count 4.9 K/mm3 (4.4-11.0)
== END 2024-11-09 21:44 | disposition home or self-care (01) ==
PROVIDERS: Emergency Provider Surgery; Visit Provider Surgery
DX: J45.901 Unspecified asthma with (acute) exacerbation (principal); B34.9 Viral infection, unspecified; I10 Essential (primary) hypertension; F17.290 Nicotine dependence, other tobacco product, uncomplicated; Z79.899 Other long term (current) drug therapy
CPT/HCPCS: 71046; 80048; 85025; 94640; 99283; A4216